=== PATIENT | female | born 1940 | race Caucasian/White ===

== ENCOUNTER 2017-06-20 06:43 | Inpatient (IN) | payer OTHER ==
--- NOTE | 2017-06-17 12:04 | Diagnostic Imaging Report ---
PROCEDURE: Frontal and lateral views of the chest. COMPARISON: Patients [facility], DX, CHEST 2 VIEWS, 11/11/2014, 13:35. Patients [facility], DX, CHEST 2 VIEWS, 09/23/2015, 19:00. INDICATIONS: PREOP - RIGHT HIP SX FINDINGS: Lines/tubes: None. Lungs: The lungs are well inflated. Stable Ill-defined, rounded 6 mm nodular density projecting in the left costophrenic region on the frontal view only, likely represents a calcified granuloma. There is no evidence of pneumonia or pulmonary edema. Pleura: There is no pleural effusion or pneumothorax. Heart and mediastinum: Mild enlargement of the cardiac silhouette. Pulmonary vasculat Bones: No acute bony abnormality. IMPRESSION: 1. mild enlargement of the cardiac silhouette, without acute cardiopulmonary abnormalities Davi Ayala M.D. Dictated by: Davi Ayala M.D. on 06/17/2017 at 12:12 Electronically approved by: Davi Ayala M.D. on 06/17/2017 at 12:12
[2017-06-17 12:22] LABS: BASOPHILS % 0.3 % (0.0-1.0); EOSINOPHILS # (AUTO) 0.1 (0.0-0.4); EOSINOPHILS % 0.8 % (0.0-6.0); HEMATOCRIT 41.3 % (34.2-44.1); HEMOGLOBIN 13.5 g/dL (12.0-16.0); LYMPHOCYTES # (AUTO) 2.6 (1.0-3.2); LYMPHOCYTES % 21.3 % (18.0-39.1); MEAN CORPUSCULAR HEMOGLOBIN 30.5 pg (28-32); MEAN CORPUSCULAR HGB CONC 32.7 g/dL (31-35); MEAN CORPUSCULAR VOLUME 93.4 fL (81-99); MONOCYTES # (AUTO) 0.6 (0.2-0.8); NEUTROPHILS # (AUTO) 8.6 (2.1-6.9); NEUTROPHILS % 72.3 % (38.7-80.0); PLATELET COUNT 338 x10e3/uL (140-360); RED BLOOD COUNT 4.42 x10e6/uL (3.6-5.1); RED CELL DISTRIBUTION WIDTH 12.2 % (11.7-14.4)
[2017-06-17 12:27] LABS: ANION GAP 12.2 mmol/L (8-16); CALCIUM 9.1 mg/dL (8.4-10.2); CREATININE, SERUM 0.93 mg/dL (0.57-1.11); POTASSIUM 4.2 mmol/L (3.5-5.1)
[~2017-06-20 06:43] MED LIST: ACETAMINOPHEN325 M1 PO; ADVAIR 500/501 EA INH; ALEVE220 M1 PO; AMLODIPINE BESYL5 MG PO; ATROVENT HFA12.9 GM PO; B-122500 MCG PO; BUDESONIDE0.5 MG/2 M NEB; CENTRUM SILVER1 EAC1 PO; COZAAR100 MG PO; COZAAR50 MG PO; DETROL LA4 MG PO; DIGOXIN125 MCG PO; ELIQUIS PO; GLUCOPHAGE500 MG PO; HYDRALAZINE HC100 MG PO; HYDROCHLOROTH12.5 M1 PO; HYDROCHLOROTHIA25 MG PO; ISOSORBIDE DINI30 MG PO; LAMISIL250 MG PO; LASIX20 MG PO; LEVALBUTER1.25 MG/3 INH; LISINOPRIL; LOPRESSOR25 MG PO; METFORMIN; METOPROLOL SUCC25 MG PO; MUCDM PO; MULTI-VITAMIN1 EACH; NEURONTIN100 MG PO; PEPCID20 MG PO; PREDNISONE20 MG PO; RA GLUCOSAMINE PO; ROPIVACAINE 246.25 MG, EPINEPHRINE HCL 1:1000 0.5 MG, CLONIDINE HCL 0.08 MG, KETOROLAC ... INJ ONE; SALBUTAMOL INH; SINGULAIR10 MG PO; SYMBICORT 80-10.2 GM INH; TYLENOL PO; VENTOLIN HFA18 GM INH; VERAPAMIL ER120 M1; XARELTO10 MG PO; XOPENEX CO1.25 MG/0.; XOPENEX HFA15 GM INH
[2017-06-20] MEDS ORDERED: MUPIROCIN 2% OINT 22 GM TUBE ONE (06:54)
[2017-06-20] MEDS ORDERED: TRANEXAMIC ACID 1,000 MG/10 ML ML ONE (06:55)
[2017-06-20] MEDS ORDERED: BACITRACIN 50,000 UNIT VIAL ONE (06:55)
[2017-06-20] MEDS ORDERED: HYDROGEN PEROXIDE 120 ML BTL ONE (06:55)
[2017-06-20] MEDS ORDERED: CEFAZOLIN SOD 2 GM/D5W 50ML 50 ML IV ONE (07:04)
[2017-06-20] MEDS ORDERED: DEXAMETHASONE SOD PHOS 10 MG/1 ML VIAL ONE (07:43)
[2017-06-20] MEDS ORDERED: GABAPENTIN 300 MG CAP ONE (07:43)
[2017-06-20] MEDS ORDERED: CELECOXIB 200 MG CAP ONE (07:43)
[2017-06-20] MEDS ORDERED: BUPIVACAINE 7.5MG/ML /DEXTROSE 82.5MG/ML 2 ML AMP INJ ONE (08:36)
[2017-06-20] MEDS ORDERED: SODIUM CHLORIDE 0.9% 1000ML 1,000 ML IV SCH (09:56)
[2017-06-20] MEDS ORDERED: ZOLPIDEM TARTRATE 5 MG TAB PO PRN (10:00)
[2017-06-20] MEDS ORDERED: HYDROCODONE/APAP 7.5MG-325MG 1 EA TAB PO PRN (10:00)
[2017-06-20] MEDS ORDERED: DOCUSATE SODIUM 100 MG CAP PO PRN (10:00)
[2017-06-20] MEDS ORDERED: DIPHENHYDRAMINE HCL INJ 50 MG/ML VIAL IM/IV PRN (10:00)
[2017-06-20] MEDS ORDERED: KETOROLAC TROMETHAMINE 30 MG/ML VIAL IV PRN (10:00)
[2017-06-20] MEDS ORDERED: PROMETHAZINE HCL (IM) 25 MG/ML VIAL INJ PRN (10:00)
[2017-06-20] MEDS ORDERED: ACETAMINOPHEN 650 MG SUPP PR PRN (10:00)
[2017-06-20] MEDS ORDERED: HYDROCODONE/APAP 5MG-325MG TAB PO PRN (10:00)
[2017-06-20] MEDS ORDERED: ONDANSETRON HCL INJ 2 MG/ML VIAL IV PRN (10:00)
[2017-06-20] MEDS ORDERED: FENTANYL CITRATE/PF 100MCG/2 ML INJ ONE ×2 (10:43→19:15)
--- NOTE | 2017-06-20 11:46 | Diagnostic Imaging Report ---
PROCEDURE:X-RAY PELVIS, AP VIEW COMPARISON:03/02/17 INDICATIONS:STATUS POST RIGHT HIP SURGERY FINDINGS: Limited by body habitus. Unchanged left hip arthroplasty. Status post right hip arthroplasty. Hardware is intact. No definite evidence of acute displaced fracture or dislocation. CONCLUSION: Limited by body habitus/overlying soft tissue attenuation. Post surgical changes of right hip arthroplasty. Status post left hip arthroplasty. Hardware are intact. Dictated by: Julio Key M.D. on 06/20/2017 at 11:55 Electronically approved by: Julio Key M.D. on 06/20/2017 at 11:55
[2017-06-20] MEDS: ACETAMINOPHEN 1000 MG/100 ML IV SCH ×3 (12:00→16:15)
[2017-06-20] MEDS ORDERED: ACETAMINOPHEN 1000 MG/100 ML IV PRN (12:45)
[2017-06-20] MEDS ORDERED: HYDROMORPHONE 2MG/ML INJ ONE (13:21)
[2017-06-20] MEDS ORDERED: CEFAZOLIN SOD 1 GM/NS 50ML 50 ML IV SCH (14:00)
[2017-06-20 15:36] VITALS: BP 174/69
[2017-06-20] MEDS: CEFAZOLIN SOD 1 GM VIAL IV SCH ×2 (16:00→16:13)
[2017-06-20] MEDS: CELECOXIB 100 MG CAP PO SCH (16:12)
[2017-06-20] MEDS ORDERED: ASPIRIN 325 MG TAB PO SCH (17:00)
[2017-06-20] MEDS ORDERED: SEVOFLURANE INHAL SOLN 250 ML PEN BTL ONE (18:28)
[2017-06-20] MEDS ORDERED: ONDANSETRON HCL INJ 2 MG/ML VIAL ONE (18:28)
[2017-06-20] MEDS ORDERED: PROPOFOL IV EMULSION 10 MG/ML 20 ML VIAL ONE (18:28)
[2017-06-20] MEDS ORDERED: LIDOCAINE HCL 2% LOCAL INJ 5 ML SDV VIAL INJ ONE (18:28)
[2017-06-20] MEDS ORDERED: MIDAZOLAM HCL 2 MG/2 ML VIAL ONE (19:15)
[2017-06-20 20:00] VITALS: BP 145/67
[2017-06-21] VITALS: BP 160/70
[2017-06-21] MEDS: CEFAZOLIN SOD 1 GM VIAL IV SCH (00:51)
[2017-06-21 01:21] VITALS: BP 160/70
[2017-06-21 04:00] VITALS: BP 181/73
[2017-06-21] MEDS: ACETAMINOPHEN 1000 MG/100 ML IV SCH (05:10)
[2017-06-21 06:56] LABS: HEMATOCRIT 34.7 % (34.2-44.1); HEMOGLOBIN 11.6 g/dL (12.0-16.0)
[2017-06-21] MEDS: CELECOXIB 100 MG CAP PO SCH (08:00)
[2017-06-21] MEDS ORDERED: LEVALBUTEROL HCL SOLN NEBU 0.63 MG/3 ML NEB INH PRN (08:45)
[2017-06-21] MEDS ORDERED: FUROSEMIDE 20 MG TAB PO SCH (09:00)
[2017-06-21] MEDS ORDERED: BUDESONIDE 0.5MG/2 ML NEB NEB SCH (09:00)
[2017-06-21] MEDS ORDERED: TOLTERODINE TARTRATE 4 MG CAPCR PO SCH (09:00)
[2017-06-21] MEDS ORDERED: AMLODIPINE BESYLATE 5 MG TAB PO SCH (09:00)
[2017-06-21] MEDS ORDERED: LOSARTAN POTASSIUM 100 MG TAB PO SCH (09:00)
[2017-06-21] MEDS ORDERED: NON-FORMULARY MEDICATION ([Eliquis] 2.5 MG) PO SCH (09:00)
--- NOTE | 2017-06-21 09:10 | Consultation ---
DATE OF CONSULTATION: June 20, 2017 PRIMARY CARE PHYSICIAN: Dr. Rosario Arias CHIEF COMPLAINT: Status post right hip replacement. HISTORY: Patient is a pleasant 77-year-old female who came in now status post right hip replacement. The patient has significant osteoarthritis. She failed outpatient treatment. The patient is stable otherwise. She is at baseline and has multiple medical problems. She is comfortable at this time. PAST MEDICAL HISTORY: Osteoarthritis, asthma, morbid obesity, diabetes, type 2, hypertension, diabetic neuropathy. She has atrial fibrillation. PAST SURGICAL HISTORY: Lower back surgery, left knee replacement, right total knee replacement, and now status post right hip replacement. SOCIAL HISTORY: Patient does not smoke or use alcohol. No recreational drugs. ALLERGIES: CODEINE AND MORPHINE. HOME MEDICATIONS: Tylenol, Norvasc, Lasix, losartan, metoprolol, Eliquis, Detrol LA, multivitamin. PHYSICAL EXAMINATION VITALS: Temperature is 96, blood pressure 181/73, pulse rate 60, respirations 18. GENERAL: The patient is not in acute distress. She is awake. HEENT: Normocephalic, atraumatic and anicteric. NECK: Supple grossly. PULMONARY: Clear. CARDIOVASCULAR: Atrial fibrillation and rate controlled. ABDOMEN: Soft and obese. EXTREMITIES: No edema. No cyanosis. Status post right hip replacement. NEUROLOGIC: No focal deficit. LABORATORY: Sodium is 142, potassium 4.2, chloride 109, bicarb 25, BUN 23, creatinine 0.9, glucose 143. WBC is 12, hemoglobin 12, hematocrit 35, and platelets 338,000. IMPRESSION 1. Status post right hip replacement. 2. Stable atrial fibrillation. 3. Stable diabetes, hypertension and obesity. PLAN: Adjust the patient's medications. Resume Eliquis. Continue with current treatment. PT and OT. Home medication list reviewed. Pain control. Discontinue IV fluids. Job#: [id number] RAFAEL
[2017-06-21 09:58] VITALS: BP 163/70
[2017-06-21] MEDS ORDERED: ACETAMINOPHEN 1000 MG/100 ML IV PRN (10:00)
[2017-06-21] MEDS ORDERED: APIXAB 2.5 MG TABLET PO SCH (20:00)
[2017-06-21] MEDS ORDERED: METOPROLOL SUCCINATE 25 MG TAB XL PO SCH (21:00)
--- NOTE | 2017-06-23 10:24 | Operative Report ---
DATE OF PROCEDURE: June 20, 2017 DIP GUIDER STOVES: Ovi Paz PA-C The patient was brought to the operating room for induction of anesthesia. Throughout this case, my PA's assistance was necessary for retraction of soft tissue and positioning of the extremity. This allows for efficient and technically successful execution of the operation and is considered medically necessary. PREOPERATIVE DIAGNOSES 1. Osteoarthritis, right hip. 2. Morbid obesity. POSTOPERATIVE DIAGNOSES 1. Osteoarthritis, right hip. 2. Morbid obesity. PROCEDURE: Right total hip arthroplasty, *added complexity secondary to BMI of 41. INDICATIONS: The patient is a 77-year-old lady who has advanced arthritis of her right hip. She has failed conservative management and would like to proceed with a right total hip replacement. She has been through a left total hip replacement and is happy with the outcome. We have reviewed the associated risks and benefits, the hospital stay and the recovery. She states she understands and wishes to proceed. DESCRIPTION OF PROCEDURE: The patient was brought to the operating room and placed under general anesthetic. She received prophylactic antibiotics, a regional block and tranexamic acid in the holding area. She was positioned in the left lateral decubitus position. Throughout the case , added time and personnel was necessary to accommodate the patient's body mass index. A preoperative time out was performed. The left hip was prepped and draped in a sterile manner. A posterior approach was made to the right hip. Abundant subcutaneous adipose tissue was encountered. Hemostasis was obtained with electrocautery. The posterior capsule was carefully exposed. A Charnley self-retaining deep retractor was placed. The short external rotators were released. Added hemostasis was obtained with electrocautery. The hip was dislocated and an oscillating saw was used to resect the femoral head. Complete loss of articular cartilage was noted. Acetabular retractors were placed. Marginal osteophytes and the remnants of the labrum were excised. The true floor of the acetabulum was established with a 46 mm reamer. The socket was carefully reamed up to 53 mm. A 54 mm [employer] Trident socket was then impacted into place. Fixation was augmented with a single 25 mm cancellous screw. A highly cross link polyethylene liner with a 36 mm inner diameter was then impacted into place. Care was taken to make sure that there was no evidence of soft tissue interposition. The hip had been thoroughly irrigated with a shower-tip pulsatile lavage. A portion of a 100 mL premixed pericapsular injection was placed around the soft tissue. The socket was packed with moistly soaked lap sponge and attention was directed towards the proximal femur. A box cutting osteotome and taper pin reamers were used to establish entry to the femoral canal. As with the left hip, the canal was quite tight and we expected to use a 35.5 mm offset Hurst stem. The trial broach was impacted into place. Trial reductions were performed. The patient was noted to have good stability and anabaptism of limb length. The trial implants were removed and a small bone plug was placed down the femoral canal. The canal was thoroughly irrigated with a pulsatile lavage. The canal was packed with moistly soaked peroxide sponges while 2 mixes of Simplex cement pre-loaded with antibiotics were prepared on the back table. The cement was inserted in a retrograde fashion and pressurized until about 5-1/2 minutes of cement time. The stem was seated to the predetermined level in 15 degrees of anteversion. Once the cement had cured repeat trial reductions were performed. A standard 36 mm head was felt to be optimal. The implant was seated on a clean and dry stem. The final reduction was performed. The posterior capsule was carefully repaired with number 2 Ethibond. The short external rotators were too contracted to repair. The hip was further irrigated and the remainder of the pericapsular injection was placed. The tensor fascia and gluteal fascia were closed using interrupted number 2 Ethibond. The skin was closed with subcuticular Vicryl and kt. A sterile wound VAC was applied due to the abundant adipose. The patient was returned to the supine position. She was extubated and transported to the recovery room in stable condition. Blood loss was approximately 100 mL. At the end of the procedure all needle and sponge counts were correct. Job#: [id number]
== END 2017-06-21 15:30 | disposition home health service (06) | DRG 470 ==
LOC: OR 06:43 → MED/SURG 14:13
PROVIDERS: ADMIT Specialist; ATTEND Specialist
PROC: 0SR90J9 Replacement of Right Hip Joint with Synthetic Substitute, Cemented, Open Approach (ICD-10-PCS; principal; 2017-06-20 08:00)
DX: M16.11 Unilateral primary osteoarthritis, right hip (principal); E11.42 Type 2 diabetes mellitus with diabetic polyneuropathy; Z68.41 Body mass index [BMI] 40.0-44.9, adult; I48.91 Unspecified atrial fibrillation; Z96.642 Presence of left artificial hip joint; E66.01 Morbid (severe) obesity due to excess calories; I10 Essential (primary) hypertension; J45.909 Unspecified asthma, uncomplicated; Z79.01 Long term (current) use of anticoagulants; Z96.653 Presence of artificial knee joint, bilateral; Z88.5 Allergy status to narcotic agent; Z88.2 Allergy status to sulfonamides
CPT/HCPCS: 36415; 71020; 72170; 80048; 85014; 85018; 85025; 86850; 86900; 86920; 93005; 97139; C1713; J0171; J0690; J1100; J1885; J2001; J2250; J2405; J2795

== ENCOUNTER 2017-10-23 18:33 | Observation (INO) | payer OTHER ==
[~2017-10-23] VITALS: Ht 157.5 cm; Wt 97.5 kg
[~2017-10-23 18:33] MED LIST changes: -ROPIVACAINE 246.25 MG, EPINEPHRINE HCL 1:1000 0.5 MG, CLONIDINE HCL 0.08 MG, KETOROLAC ... INJ ONE
--- OUTSIDE RECORDS SUMMARY | 2017-10-23 18:36 | XMS REPORT ---
[facility] Address Unknown Phone Unavailable Care Team Providers Care Skydiving Instructor Name Role Phone ANTHONY LIVINGSTON Unavailable Unavailable KINSEY JULIEN Unavailable Unavailable Problems This patient has no known problems. Allergies, Adverse Reactions, Alerts This patient has no known allergies or adverse reactions. Medications This patient has no known medications. Results Test Description Test Time Test Comments Text Results Atomic Results Result Comments PELVIS AP 1-2 VIEWS [place] [address] Patient Name: MARTA TRINIDAD MR #: [id number] : 1940 Age/Sex: 77/F Req #: [id number] Adm Physician: Ordered by: ANTHONY LIVINGSTON MD Report #: [id number] Location: OR Room/Bed: Procedure: [id number] DX/PELVIS AP 1-2 VIEWS Exam Date: 06/20/17 Exam Time: 1050 REPORT STATUS: Signed PROCEDURE: X-RAY PELVIS, AP VIEW COMPARISON: 03/02/17 INDICATIONS: STATUS POST RIGHT HIP SURGERY FINDINGS: Limited by body habitus. Unchanged left hip arthroplasty. Status post right hip arthroplasty. Hardware is intact. No definite evidence of acute displaced fracture or dislocation. CONCLUSION: Limited by body habitus/overlying soft tissue attenuation. Post surgical changes of right hip arthroplasty. Status post left hip arthroplasty. Hardware are intact. Dictated by: Julio Lucero M.D. on 06/20/2017 at 11:55 Electronically approved by: Julio Lucero M.D. on 06/20/2017 at 11:55 Dictated By: JULIO LUCERO MD 1155 Transcribed By: LAM on 06/20/17 1155 COPY TO: ANTHONY LIVINGSTON MD CHEST 2 VIEWS [place] [address] Patient Name: MARTA TRINIDAD MR #: [id number] : 1940 Age/Sex: 77/F Req #: [id number] Adm Physician: Ordered by: ANTHONY LIVINGSTON MD Report #: [id number] Location: OR Room/Bed: Procedure: [id number] DX/CHEST 2 VIEWS Exam Date: 06/17/17 Exam Time: 1125 REPORT STATUS: Signed PROCEDURE: Frontal and lateral views of the chest. COMPARISON: [facility], DX, CHEST 2 VIEWS, 2014, 13:35. [facility], DX, CHEST 2 VIEWS, 09/23/2015, 19:00. INDICATIONS: PREOP - RIGHT HIP SX FINDINGS: Lines/tubes: None. Lungs: The lungs are well inflated. Stable Ill-defined, rounded 6 mm nodular density projecting in the left costophrenic region on the frontal view only, likely represents a calcified granuloma. There is no evidence of pneumonia or pulmonary edema. Pleura: There is no pleural effusion or pneumothorax. Heart and mediastinum: Mild enlargement of the cardiac silhouette. Pulmonary vasculat Bones: No acute bony abnormality. IMPRESSION: 1. mild enlargement of the cardiac silhouette, without acute cardiopulmonary abnormalities Rocael Ayala M.D. Dictated by: Rocael Ayala M.D. on 06/17/2017 at 12:12 Electronically approved by: Rocael Ayala M.D. on 06/17/2017 at 12:12 Dictated By: ROCAEL AYALA MD 11 Transcribed By: LAM on 06/17/171211 COPY TO: ANTHONY LIVINGSTON MD HIP RIGHT 2-3 VW (+/- PELVIS) [place] [address] Patient Name: MARTA TRINIDAD MR #: [id number] : 1940 Age/Sex: 77/F Req #: [id number] Adm Physician: Ordered by: KINSEY JULIEN MD Report #: [id number] Location: ER Room/Bed: Procedure: [id number] DX/HIP RIGHT 2-3 VW (+/- PELVIS) Exam Date: Exam Time: REPORT STATUS: Signed PROCEDURE: HIP RIGHT 2-3 VW (+/- PELVIS) COMPARISON: None. INDICATIONS: FALL FINDINGS: No evidence of acute fracture or dislocation. Status post left hip arthroplasty. Hardware is intact. Degenerative changes of right hip. Pelvic phleboliths. Vascular calcifications. IMPRESSION: No acute fracture or dislocation of the right hip. Degenerative changes of the right hip. Status post left hip arthroplasty. Intact hardware. Dictated by: Julio Lucero M.D. on 03/02/2017 at 17:00 Electronically approved by: Julio Lucero M.D. on 03/02/2017 at 17:00 Dictated By: JULIO LUCERO MD 99 COPY TO: KINSEY JULIEN MD KNEE RIGHT THREE VIEWS [place] [address] Patient Name: MARTA TRINIDAD MR #: [id number] : 1940 Age/Sex: 77/F Req #: [id number] Adm Physician: Ordered by: KINSEY JULIEN MD Report #: [id number] Location: ER Room/Bed: Procedure: [id number] DX/KNEE RIGHT THREE VIEWS Exam Date: Exam Time: REPORT STATUS: Signed PROCEDURE: KNEE RIGHT THREE VIEWS COMPARISON: 11/06/12 INDICATIONS: KNEE PAIN FINDINGS: Status post right hip arthroplasty. Hardware is intact. There are no fractures, dislocations, lytic or blastic lesions. No suprapatellar joint effusion. Vascular calcification. The soft-tissues are unremarkable. CONCLUSION: Status post right hip arthroplasty. Intact hardware. No acute abnormality. Dictated by: Julio Lucero M.D. on 2016 at 17:03 Electronically approved by: Julio Lucero M.D. on 2016 at 17:03 Dictated By: JULIO LUCERO MD 02 Transcribed By: LAM on 03/02/171702 COPY TO: KINSEY JULIEN MD
[2017-10-23] MEDS ORDERED: NITROGLYCERIN 2% OINT 1 GM PKT TOP STA (18:58)
[2017-10-23] MEDS ORDERED: ASPIRIN 81 MG CHEW TAB PO STA (18:58)
[2017-10-23] MEDS ORDERED: ASPIRIN 81 MG CHEW TAB PO ONE (19:00)
[2017-10-23 19:33] LABS: BASOPHILS % 0.2 % (0.0-1.0); EOSINOPHILS # (AUTO) 0.1 (0.0-0.4); EOSINOPHILS % 0.4 % (0.0-6.0); HEMATOCRIT 41.2 % (34.2-44.1); HEMOGLOBIN 13.5 g/dL (12.0-16.0); LYMPHOCYTES # (AUTO) 2.4 (1.0-3.2); LYMPHOCYTES % 15.3 % (18.0-39.1); MEAN CORPUSCULAR HGB CONC 32.8 g/dL (31-35); MEAN CORPUSCULAR VOLUME 91.6 fL (81-99); MONOCYTES # (AUTO) 1.1 (0.2-0.8); MONOCYTES % 7.1 % (4.4-11.3); NEUTROPHILS # (AUTO) 12.1 (2.1-6.9); NEUTROPHILS % 76.1 % (38.7-80.0); PLATELET COUNT 316 x10e3/uL (140-360); RED CELL DISTRIBUTION WIDTH 13.8 % (11.7-14.4)
--- NOTE | 2017-10-23 19:43 | Diagnostic Imaging Report ---
EXAMINATION: CHEST SINGLE (PORTABLE) INDICATION: Chest pain COMPARISON: 06/17/2012 FINDINGS: TUBES and LINES: The pacemaker is intact. LUNGS: Lungs are well inflated. Lungs are clear. There is no evidence of pneumonia or pulmonary edema. PLEURA: No pleural effusion or pneumothorax. HEART AND MEDIASTINUM: Cardiac size is mildly enlarged. There are atherosclerotic calcifications within the aorta. BONES AND SOFT TISSUES: No acute osseous lesion. Soft tissues are unremarkable. UPPER ABDOMEN: No free air under the diaphragm. IMPRESSION: No acute thoracic abnormality. Mild cardiomegaly without decompensation. Signed by: Dr. Hay Winslow M.D. on 10/23/2017 7:39 PM
[2017-10-23 19:45] LABS: INR 1.22; PARTIAL THROMBOPLASTIN TIME 31.1 seconds (23.8-35.5); PROTHROMBIN TIME 14.5 seconds (11.9-14.5)
[2017-10-23 19:53] LABS: ALBUMIN 3.3 g/dL (3.5-5.0); ANION GAP 15.4 mmol/L (8-16); CALCIUM 9.4 mg/dL (8.4-10.2); CREATININE, SERUM 1.06 mg/dL (0.57-1.11); POTASSIUM 4.4 mmol/L (3.5-5.1)
[2017-10-23 20:02] LABS: CREATINE KINASE MB 2.6 ng/mL (0-5.0)
[2017-10-23] MEDS ORDERED: SODIUM CHLORIDE 0.9% 250ML 250 ML IV ONE (22:30)
[2017-10-23 23:15] LABS: BILIRUBIN,URINE NEGATIVE (NEGATIVE); CLARITY,URINE CLEAR (CLEAR); COLOR,URINE YELLOW (YELLOW); KETONES,URINE NEGATIVE (NEGATIVE); LEUKOCYTE ESTERASE ,URINE NEGATIVE (NEGATIVE); NITRITE,URINE NEGATIVE (NEGATIVE); PROTEIN,URINE DIPSTICK TRACE (NEGATIVE); URINE UROBILINOGEN 0.2 mg/dL (0.2 - 1)
[2017-10-23 23:23] LABS: EPITHELIAL CELLS,URINE FEW /LPF; RBC,URINE 0-5 /HPF (0-5); WBC,URINE (MAN) 0-5 /HPF (0-5)
[2017-10-24] VITALS (7 sets, daily range): BP systolic 148–192; BP diastolic 70–79
[2017-10-24] MEDS ORDERED: SODIUM CHLORIDE FLUSH 10 ML SYR INJ PRN (00:30)
[2017-10-24] MEDS ORDERED: ONDANSETRON HCL INJ 2 MG/ML VIAL IV PRN (00:30)
[2017-10-24] MEDS ORDERED: SYMBICORT 16010.2 GM INH (00:38)
--- NOTE | 2017-10-24 00:45 | Diagnostic Imaging Report ---
EXAM: CT Abdomen and Pelvis WITH contrast INDICATION: Abdominal pain. COMPARISON: None. TECHNIQUE: Abdomen and pelvis were scanned utilizing a multidetector helical scanner from the lung base to the pubic symphysis after administration of IV contrast. Coronal and sagittal reformations were obtained. Routine protocol was performed. Scan was performed when during portal venous phase. IV CONTRAST: 100 mL of Isovue-370 ORAL CONTRAST: Water RADIATION DOSE: Total DLP: 718.13 mGy*cm Estimated effective dose: (DLP x 0.015 x size factor) mSv COMPLICATIONS: None FINDINGS: LINES and TUBES: None. LOWER THORAX: Partially visualize pacemaker. Calcified granuloma in the left lung base. Moderate cardiomegaly. HEPATOBILIARY: No focal hepatic lesions. No biliary ductal dilation. GALLBLADDER: No radio-opaque stones or sludge. No wall thickening. SPLEEN: No splenomegaly. PANCREAS: No focal masses or ductal dilatation. ADRENALS: No adrenal nodules KIDNEYS/URETERS: Kidneys enhance symmetrically. No hydronephrosis. No cystic or solid mass lesions. No stones. GI TRACT: No abnormal distention, wall thickening, or evidence of bowel obstruction. Appendix is not clearly identified. There is however no fat stranding or adenopathy in the right lower quadrant to suggest appendicitis. PELVIC ORGANS/BLADDER: Limited. LYMPH NODES: No lymphadenopathy. VESSELS: There is mild atherosclerotic disease in the aorta and major arterial branches. PERITONEUM / RETROPERITONEUM: No free air or fluid. BONES: There are degenerative changes in the lumbar spine. Bilateral total hip replacement results in beam hardening artifact limiting the evaluation of the lower pelvis. SOFT TISSUES: Unremarkable. IMPRESSION: 1. No evidence of acute intra-abdominal or pelvic abnormality. Signed by: Dr. aHy Winslow M.D. on 10/24/2017 12:41 AM
[2017-10-24] MEDS: FAMOTIDINE 20 MG TAB PO SCH ×2 (01:18→11:50)
[2017-10-24 02:56] LABS: CREATINE KINASE MB 2.4 ng/mL (0-5.0)
[2017-10-24] MEDS ORDERED: NITROGLYCERIN 2% OINT 1 GM PKT TOP SCH (06:00)
[2017-10-24] MEDS ORDERED: IOPAMIDOL 370 MG/ML 200 ML INFUS..BTL INJ ONE (06:48)
[2017-10-24] MEDS ORDERED: SODIUM CHLORIDE 0.9% 50ML 50 ML ONE (06:48)
[2017-10-24] MEDS ORDERED: ASPIRIN 325 MG TAB EC PO SCH (09:00)
[2017-10-24] MEDS ORDERED: LORATADINE 10 MG TAB PO SCH (09:30)
[2017-10-24] MEDS ORDERED: ACETAMINOPHEN 325 MG TAB PO PRN (09:30)
[2017-10-24] MEDS ORDERED: METOPROLOL SUCCINATE 25 MG TAB XL PO SCH (09:30)
[2017-10-24] MEDS ORDERED: MONTELUKAST SODIUM 10 MG TAB PO SCH (09:30)
[2017-10-24] MEDS ORDERED: NON-FORMULARY MEDICATION ([Eliquis] 2.5 MG) PO SCH (09:30)
[2017-10-24] MEDS ORDERED: AMLODIPINE BESYLATE 5 MG TAB PO SCH (09:30)
[2017-10-24] MEDS ORDERED: LOSARTAN POTASSIUM 100 MG TAB PO SCH (10:00)
[2017-10-24] MEDS ORDERED: LEVALBUTEROL TARTRATE 45 MCG INH SCH (10:00)
[2017-10-24] MEDS: APIXAB 2.5 MG TABLET PO SCH ×2 (10:00→17:30)
--- NOTE | 2017-10-24 10:00 | History and Physical ---
CHIEF COMPLAINT: Abdominal pain, distention and then subsequently chest pain. HISTORY: A 77-year-old female with upper respiratory symptoms with acute gastroenteritis for the past 3-4 days. The patient was having diarrhea off and on. CT scan of the abdomen and pelvis done in the emergency room was otherwise unremarkable. When she was having abdominal distention, she had some chest discomfort, atypical. Cardiac enzymes have been negative. The patient is otherwise stable. The patient had upper respiratory symptoms. She was on steroids recently with IM Solu-Medrol. PAST MEDICAL HISTORY: Hypertension, reactive airway disease, atrial fibrillation, anticoagulant therapy, coronary disease, dyslipidemia. PAST SURGICAL HISTORY: Noncontributory. She had right hip replacement, lower back surgery, left knee replacement, right total knee replacement. SOCIAL HISTORY: Patient does not smoke or use alcohol. No regular drugs. ALLERGIES: CODEINE AND MORPHINE. HOME MEDICATIONS: List reviewed. REVIEW OF SYSTEMS: As mentioned. PHYSICAL EXAMINATION VITAL SIGNS: Temperature is 98, blood pressure 192/79, pulse rate 66, respirations 18. GENERAL: The patient is not in acute distress. HEENT: Normocephalic, atraumatic and anicteric. NECK: Supple grossly. PULMONARY: Clear. CARDIOVASCULAR: S1 and S2. Regular rate and rhythm. ABDOMEN: Soft nontender. No distention. EXTREMITIES: No cyanosis or edema. NEUROLOGIC: No focal deficit. LABORATORY: Otherwise unremarkable. IMPRESSION: Acute gastroenteritis associated with diarrhea and then subsequently reflux and chest pain secondary to abdominal distention, resolved. Computerized tomography scan of the abdomen and pelvis is negative. PLAN: Start the patient on diet. Resume home medications. Add Claritin and Singulair. If the patient is stable, she should be able to go home today. Job#: [id number] [place]
[2017-10-24] MEDS ORDERED: ONDANSETRON HCL 4 MG ORAL DISINTEGRATING TAB PO PRN (12:15)
[2017-10-24] MEDS: LEVALBUTEROL 15 GM AERO IH SCH ×2 (15:00→16:31)
[2017-10-24] MEDS ORDERED: CLARITIN10 M2 (16:47)
[2017-10-24] MEDS ORDERED: SINGULAIR10 MG (16:48)
[2017-10-24] MEDS ORDERED: BUDESONIDE/FORMOTEROL 160/4.5MCG INHALER INH SCH (19:00)
[2017-10-25] MEDS ORDERED: NON-FORMULARY MEDICATION (Losartan Potassium (Cozaar) 100 MG) PO SCH (09:00)
[2017-10-25] MEDS ORDERED: FUROSEMIDE 20 MG TAB PO SCH (09:00)
[2017-10-25] MEDS ORDERED: TOLTERODINE TARTRATE 4 MG CAPCR PO SCH (09:00)
== END 2017-10-24 18:15 | disposition home or self-care (01) ==
LOC: ER 18:33 → MED/SURG3 10-24 02:01
PROVIDERS: ADMIT Internal Medicine; ATTEND Internal Medicine
DX: K52.9 Noninfective gastroenteritis and colitis, unspecified (principal); R07.89 Other chest pain; I10 Essential (primary) hypertension; I48.91 Unspecified atrial fibrillation; E78.5 Hyperlipidemia, unspecified; Z79.01 Long term (current) use of anticoagulants; Z88.5 Allergy status to narcotic agent; K21.9 Gastro-esophageal reflux disease without esophagitis
CPT/HCPCS: 36415 ×2; 71045; 74177; 80053; 81001; 82550 ×2; 82553 ×2; 83880; 84484 ×2; 85025; 85610; 85730; 93005; 99284; G0378; J7050; Q9967

== ENCOUNTER 2019-04-27 14:34 | Emergency (ER) | payer OTHER ==
[~2019-04-27] VITALS: Ht 157.5 cm; Wt 97.5 kg
[~2019-04-27 14:34] MED LIST changes: +CLARITIN10 M2; +SINGULAIR10 MG; +SYMBICORT 16010.2 GM INH
--- OUTSIDE RECORDS SUMMARY | 2019-04-27 14:39 | XMS REPORT | Summary of Care ---
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 [employer]ating Name Role Phone DAVID Bolaños, TAWANNA Unavailable Unavailable OLIVER López, AYUSH Unavailable Unavailable DANNY López, BALAJI Unavailable Unavailable DARYL López, YAKELIN Unavailable Unavailable OLIVER MONTANEZ, AYUSH Marr Unavailable Unavailable DARYL MONTANEZ, SOLBARBARA Unavailable Unavailable Cecilia MONTANEZ, Rodrigo Unavailable Unavailable Danny MONTANEZ, Balaji Unavailable Unavailable LINDA PA-C, CLAY Unavailable Unavailable DAVID CREDIT ANALYSIS MANAGER-C, TAWANNA Aparicio Unavailable Unavailable GIA MONTANEZ SC, OTTO Pond Unavailable Unavailable AMERICA MONTANEZ, KARYN Unavailable Unavailable TABITHA MONTANEZ SC, JOCELIN BANKS Unavailable Unavailable Unavailable Unavailable Functional Status Name Dates Details Functional status health issues are not documented Status: Name Dates Details Cognitive status health issues are not documented Status: Problems Name Dates Details Dermatophytosis of nail (110.1, B35.1) Status: Active Epidermal inclusion cyst (706.2, L72.0) Status: Active Left shoulder pain (719.41, M25.512) Status: Active Vision blurred (368.8, H53.8) Status: Active Allergic rhinitis (477.9, J30.9) Status: Active Special Dr. 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, E11.49) Status: Active Diabetes mellitus with renal manifestation (250.40, E11.29) Status: Active Rheumatoid arthritis (714.0, M06.9) Status: Active Peripheral neuropathy, hereditary/idiopathic (356.9, G60.9) Status: Active H/O total hip arthroplasty, left (V43.64, Z96.642) Status: Active H/O total knee replacement, bilateral (V43.65, Z96.653) Status: Active Cataract, right (366.9, H26.9) Status: Active Paroxysmal atrial tachycardia (427.0, I47.1) Status: Active Mid back pain on right side (724.5, M54.9) Status: Active Ventricular premature depolarization (427.69, I49.3) Status: Active Pacemaker (V45.01, Z95.0) Status: Active Trigger finger of right thumb (727.03, M65.311) Status: Active Leg pain, anterior, right (729.5, M79.604) Status: Active Need for pneumococcal vaccine (V03.82, Z23) Status: Active Abnormal chest xray (793.2, R93.89) Status: Active Right elbow pain (719.42, M25.521) Status: Active Postmenopausal state (V49.81, Z78.0) Status: Active Right knee pain (719.46, M25.561) Status: Active Fall, initial encounter (E888.9, W19.XXXA) Status: Active Right hip pain (719.45, M25.551) Status: Active Mitral regurgitation (424.0, I34.0) Status: Active Aortic stenosis (424.1, I35.0) Status: Active Status post left hip replacement (V43.64, Z96.642) Status: Active Sciatica of right side associated with disorder of lumbar spine (724.3, M53.86) Status: Active Chronic bilateral low back pain with bilateral sciatica (724.2, M54.42) Status: Active Aphthous ulcer (528.2, K12.0) Status: Active Low back pain (724.2, M54.5) Status: Active Midepigastric pain (789.06, R10.13) Status: Active Abdominal bloating (787.3, R14.0) Status: Active Spinal stenosis (724.00, M48.00) Status: Active Osteopenia (733.90, M85.80) Status: Active SOB (shortness of breath) on exertion (786.05, R06.02) Status: Active Edema (782.3, R60.9) Status: Active Pedal edema (782.3, R60.0) Status: Active Asthma (493.90, J45.909) Status: Active Leg abrasion (916.0, S80.819A) Status: Active Acute purulent bronchitis (466.0, J20.8) Status: Active Sebaceous cyst (706.2, L72.3) Status: Active Skin infection (686.9, L08.9) Status: Active Diastolic dysfunction (429.9, I51.89) Status: Active Congestive heart failure (428.0, I50.9) Status: Active Need for influenza vaccination (V04.81, Z23) Status: Active Sore throat (462, J02.9) Status: Active Pharyngitis due to Streptococcus pyogenes (034.0, J02.0) Status: Active Coughing (786.2, R05) Status: Active Increased urinary frequency (788.41, R35.0) Status: Active 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, 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 Asthmatic bronchitis (493.90, J45.909) Status: Active Pain in both feet (729.5, M79.671) Status: Active Lumbar spondylosis (721.3, M47.816) Status: Active Obesity, Class III, BMI 40-49.9 (morbid obesity) (278.01, E66.01) Status: Active Mixed incontinence (788.33, N39.46) Status: Active Abnormal renal function (593.9, N28.9) Status: Active Left ankle swelling (719.07, M25.472) Status: Active Diarrhea, unspecified type (787.91, R19.7) Status: Active Colon cancer screening (V76.51, Z12.11) Status: Active IBS (irritable bowel syndrome) (564.1, K58.9) Status: Active Claudication (443.9, I73.9) Status: Active Urinary incontinence in female (788.30, R32) Status: Active Atrophic vaginitis (627.3, N95.2) Status: Active Vulvar irritation (624.8, N90.89) Status: Active UTI (urinary tract infection) (599.0, N39.0) Status: Active Increased frequency of urination (788.41, R35.0) Status: Active Lumbosacral stenosis 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, M48.07) Status: Active Breast cancer screening (V76.10, Z12.39) Status: Active Osteoporosis screening (V82.81, Z13.820) Status: Active Estrogen deficiency (256.39, E28.39) Status: Active Advance directive discussed with patient (V65.49, Z71.89) Status: Active Depression screen (V79.0, Z13.31) Status: Active Encounter for mini-mental status examination Status: Active Risk for falls (V15.88, Z91.81) Status: Active Medicare annual wellness visit, subsequent (V70.0, Z00.00) Status: Active 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, 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: Active Failed back syndrome, lumbar (722.83, M96.1) Status: Active Lumbar spondylolysis (738.4, M43.06) Status: Active Lumbar radicular pain (724.4, M54.16) Status: Active Laceration of skin (879.8) Status: Active Cat bite (879.8, W55.01XA) Status: Active Obesity, morbid, BMI 40.0-49.9 (278.01, E66.01) Status: Active Atrial fibrillation (427.31, I48.91) Status: Active Diabetes mellitus (250.00, E11.9) Status: Active Essential (primary) hypertension (401.9, I10) Status: Active Hyperlipidemia (272.4, E78.5) Status: Active Bradycardia (427.89, R00.1) Status: Active Medications Name Dates Details metFORMIN HCl ER 500 MG Oral Tablet Extended Release 24 Hour TAKE 1 TABLET DAILY Quantity: 90 AYUSH BOYD M.D. Active amLODIPine Besylate 10 MG Oral Tablet TAKE 1 TABLET BY MOUTH DAILY * Quantity: 30 Refills: 0 BALAJI DELGADO M.D. * Start : 02-Aug-2013 Active Furosemide 20 MG Oral Tablet TAKE 1 TABLET BY MOUTH EVERY DAY NEEDED * Quantity: 90 Refills: 1 AYUSH BOYD M.D. * Start : 23-Oct-2015 Active Eliquis 2.5 MG Oral Tablet Take 1 tablet by mouth twice a day * Quantity: 60 Refills: 6 DANNY López, BALAJI * Start : 11-Sep-2018 Active Levalbuterol Tartrate 45 MCG/ACT Inhalation Aerosol INHALE 1 TO 2 PUFFS EVERY 4 TO 6 HOURS NEEDED. * Quantity: 1 Refills: 3 AYUSH BOYD M.D. * Start : 12-Nov-2016 Active 15 GM Inhaler Clotrimazole 1 % External Cream APPLY SPARINGLY TO AFFECTED AREA(S) 2 TO 3 TIMES DAILY. * Quantity: 1 Refills: 2 OLIVER López, AYUSH * Start : 22-Aug-2017 Active 45 GM Tube Montelukast Sodium 10 MG Oral Tablet TAKE 1 TABLET BY MOUTH EVERY DAY * Quantity: 90 Refills: 1 AYUSH BOYD M.D. * Start : 31-Oct-2018 Active Olmesartan Medoxomil 40 MG Oral Tablet TAKE 1 TABLET BY MOUTH EVERY DAY * Quantity: 90 Refills: 0 AYUSH BOYD M.D. * Start : 08-Jun-2018 Active Levalbuterol HCl - 0.63 MG/3ML Inhalation Nebulization Solution USE 1 VIAL IN NEBULIZER 3 TIMES A DAY. * Quantity: 1 Refills: 0 TAWANNA HERNANDEZ N.P. * Start : 08-Jun-2018 Active 25 x 3 ML Box Premarin 0.625 MG/GM Vaginal Cream Insert 1 gram using applicator in vagina every night at bedtime for 4 weeks then twice weekly therafter * Quantity: 2 Refills: 6 YAKELIN BRITO M.D. * Start : 23-Nov-2018 Active 30 GM Tube Desitin 40 % External Paste Apply to perineum 3 times daily as directed * Quantity: 1 Refills: 0 DARYL López, SOLAFA * Start : 23-Nov-2018 Active 57 GM Tube OneTouch Ultra 2 w/Device Kit USE TO CHECK GLUCOSE ONCE DAILY * Quantity: 1 Refills: 0 AYUSH BOYD M.D. * Start : 11-Dec-2018 Active OneTouch Ultra Blue In Vitro Strip test once daily * Quantity: 1 Refills: 1 OLIVER López, AYUSH * Start : 11-Dec-2018 Active 100 Strip Box OneTouch Delica Lancets 33G USE AND DISCARD 1 LANCET DAILY TO MONITOR BLOOD SUGAR * Quantity: 1 Refills: 1 OLIVER López AYUSH * Start : 11-Dec-2018 Active 100 Unit Box Trospium Chloride 20 MG Oral Tablet Take 1 tablet by mouth twice a day * Quantity: 60 Refills: 1 DARYL López YAKELIN * Start : 11-Dec-2018 Active Breo Ellipta 100-25 MCG/INH Inhalation Aerosol Powder Breath Activated * Refills: 0 Active Carvedilol 12.5 MG Oral Tablet TAKE 1 TABLET TWICE DAILY WITH MEALS. * Quantity: 60 Refills: 1 BALAJI DELGADO M.D. * Start : 26-Jan-2019 Active Cephalexin 500 MG Oral Tablet TAKE 1 TABLET Every twelve hours * Quantity: 14 Refills: 0 DAVID Andrade.TAWANNA Faith * Start : 06-Mar-2019 Active Allergies and Adverse Reactions Name Dates Details codeine (Allergy) Status: Active Morphine Derivatives (Allergy) Status: Active Past Medical History Name Dates Details History of shortness of breath (V13.89, Z87.898) Status: Resolved Procedures Procedure Dates Details MA Digital Mammo Screening Philip [id number] Date: 25-Jan-2019 MA Bone Density Scan [id number] Date: 25-Jan-2019 History of Back Surgery Completed History of Knee Surgery Completed History of Pacemaker Permanent Placement Completed History of Corneal LASIK Right Completed Immunization Name Dates Details Fluzone INJ Lot #: [id number] on: 04-Apr-2013 Fluzone INJ Lot #: [id number] on: 08-Feb-2014 Prevnar 13 Intramuscular Suspension Lot #: [id number] on: 22-Nov-2014 Fluzone Quadrivalent 0.5 ML Intramuscular Suspension Lot #: [id number] on: 26-Apr-2016 Pneumococcal polysaccharide vaccine, 23 valent Lot #: [id number] on: 23-Dec-2016 Fluzone Quadrivalent 0.5 ML Intramuscular Suspension Prefilled Syringe Lot #: [id number] on: 23-Mar-2018 Influenza Comments: Approx [id number] Family History Name Dates Details Family history of Asthma (V17.5) Status: Active Name Dates Details Family history of Diabetes Mellitus (V18.0) Status: Active Name Dates Details Family history of Diabetes Mellitus (V18.0) Status: Active Family history of Diabetes Mellitus (V18.0) Status: Active Family history of congenital heart disease (V19.5, Z82.79) Status: Active Social History Name Dates Details - Status: Name Dates Details Never smoker Vital Signs Date Test Result Details [id number] BP Systolic 140 mm[Hg] Status: Comments: Location: LUE; Position: Sitting BP Diastolic 85 mm[Hg] Status: Comments: Location: LUE; Position: Sitting Height 62 in Status: Weight 230 lb Status: Body Mass Index Calculated 42.07 kg/m2 Status: Body Surface Area Calculated 2.03 m2 Status: Heart Rate 71 /min Status: Respiration Rate 16 /min Status: 3-Nnn-[id number]:11 BP Systolic 141 mm[Hg] Status: Comments: Location: LUE; Position: Sitting BP Diastolic 76 mm[Hg] Status: Comments: Location: LUE; Position: Sitting Height 62 in Status: Weight 230 lb Status: Body Mass Index Calculated 42.07 kg/m2 Status: Body Surface Area Calculated 2.03 m2 Status: Heart Rate 76 /min Status: Respiration Rate 16 /min Status: Temperature 97.6 f Status: Comments: Method: Temporal Results Date Description Value Details Results not documented Plan of Care Name Dates Details Planned Observations Planned Goals not documented Planned Encounters Appointment; CHELSY CRUZ M.D. On: 22-Mar-2019 9:30 Appointment; CHELSY CRUZ M.D. On: 02-Apr-2019 14:30 Appointment; AYUSH BOYD M.D. On: 11-Apr-2019 9:30 Appointment; YAKELIN BRITO M.D. On: 12-Apr-2019 11:30 Appointment; BALAJI DELGADO M.D. On: 14-Sep-2019 13:20 Interventions Provided Plan* 1. Tachy/ leighann: paroxysmal atrial fibrillation: * - cont eliquis 2.5mg bid, discussed WATCHMAN option given bruising * - PPM interrogation=reviewed and normal functioning PPM * 2. SOB: * - 05/18/2017 nuclear stress test OK * - s/p asthma exacerbation, s/p steroids * - echo: Nl EF 2015 and 2018 * - Nuclear stress test 2017 reviewed and normal * - cont Furosemide 20 mg po daily * 3. HTN: at home in the 120s * - will cont metoprolol 50mg daily * - cont Hydralazine 100 mg po daily * - cont Losartan 100 mg po daily * - cont Amlodipine 5 mg po daily * 4. Fasting lipid panel from 01/2018 reviewed and LDL 84 * 5. Mild and mild MR: * TTE 05/16/2018 reviewed and stable LV function with stable valvular disease * Repeat TTE 03/14/2019 reviewed and stable LV function and valvular disease * 6. Diastolic dysfunction * - cont current dose metoprolol,cont current doses of losartan and furosemide * 7. PVD * a. stable * b. stress alberto negative Instructions Name Dates Details Instructions not documented Encounters Appointment; AYUSH BOYD M.D. Encounter Diagnosis: Problem not documented On: 17-Mar-2017 12:30 Appointment; AYUSH BOYD M.D. Encounter Diagnosis: Problem not documented On: 27-Apr-2017 10:45 Appointment; BALAJI DELGADO M.D. Encounter Diagnosis: Problem not documented On: 13-May-2017 10:40 Appointment; [facility], [facility] Encounter Diagnosis: Problem not documented On: 18-May-2017 13:00 Appointment; BALAJI DELGADO M.D. Encounter Diagnosis: Problem not documented On: 18-May-2017 16:40 Appointment; AYUSH BOYD M.D. Encounter Diagnosis: Problem not documented On: 22-Aug-2017 12:45 Appointment; AYUSH BOYD M.D. Encounter Diagnosis: Problem not documented On: 07-Oct-2017 14:15 Appointment; AYUSH BOYD M.D. Encounter Diagnosis: Problem not documented On: 12-Oct-2017 12:45 Appointment; AYUSH BOYD M.D. Encounter Diagnosis: Problem not documented On: 20-Oct-2017 11:15 Appointment; AYUSH BOYD M.D. Encounter Diagnosis: Problem not documented On: 28-Oct-2017 11:15 Appointment; AYUSH BOYD M.D. Encounter Diagnosis: Problem not documented On: 04-Nov-2017 11:15 Appointment; LIONEL SANCHEZ Encounter Diagnosis: Problem not documented On: 10-Nov-2017 9:15 Appointment; KARYN CROSS M.D. Encounter Diagnosis: Problem not documented On: 12-Dec-2017 9:30 Appointment; AYUSH BOYD M.D. Encounter Diagnosis: Problem not documented On: 04-Jan-2018 14:45 Appointment; AYUSH BOYD M.D. Encounter Diagnosis: Problem not documented On: 06-Jan-2018 12:45 Appointment; AYUSH BOYD M.D. Encounter Diagnosis: Problem not documented On: 12-Jan-2018 10:15 Appointment; KARYN CROSS M.D. Encounter Diagnosis: Problem not documented On: 16-Jan-2018 11:00 Appointment; AYUSH BOYD M.D. Encounter Diagnosis: Problem not documented On: 03-Feb-2018 9:45 Appointment; KARYN CROSS M.D. Encounter Diagnosis: Problem not documented On: 13-Feb-2018 10:15 Appointment; BALAJI DELGADO M.D. Encounter Diagnosis: Problem not documented On: 14-Mar-2018 14:00 Appointment; AYUSH BOYD M.D. Encounter Diagnosis: Problem not documented On: 23-Mar-2018 14:30 Appointment; AYUSH BOYD M.D. Encounter Diagnosis: Problem not documented On: 23-Mar-2018 14:30 Appointment; LIZZY MARTIN NP Encounter Diagnosis: Problem not documented On: 03-Apr-2018 13:00 Appointment; [facility], ECHO Encounter Diagnosis: Problem not documented On: 03-May-2018 11:00 Appointment; [facility] Encounter Diagnosis: Problem not documented On: 16-May-2018 13:00 Appointment; BALAJI DELGAOD M.D. Encounter Diagnosis: Problem not documented On: 16-May-2018 14:00 Appointment; CLAY MCKEON P.A. Encounter Diagnosis: Problem not documented On: 01-Jun-2018 9:45 Appointment; TAWANNA HERNANDEZ NP Encounter Diagnosis: Problem not documented On: 08-Jun-2018 13:00 Appointment; TAWANNA HERNANDEZ NP Encounter Diagnosis: Problem not documented On: 22-Jun-2018 11:00 Appointment; KARYN CROSS M.D. Encounter Diagnosis: Problem not documented On: 26-Jun-2018 10:30 Appointment; TAWANNA HERNANDEZ NP Encounter Diagnosis: Problem not documented On: 27-Jul-2018 9:00 Appointment; KARYN CROSS M.D. Encounter Diagnosis: Problem not documented On: 25-Sep-2018 13:15 Appointment; JOCELIN LU M.D. Encounter Diagnosis: Problem not documented On: 06-Oct-2018 10:30 Appointment; AYUSH BOYD M.D. Encounter Diagnosis: Problem not documented On: 25-Oct-2018 9:45 Appointment; [facility], [facility] Encounter Diagnosis: Problem not documented On: 07-Nov-2018 10:00 Appointment; JOCELIN LU M.D. Encounter Diagnosis: Problem not documented On: 07-Nov-2018 11:00 Appointment; RODRIGO KING M.D. Encounter Diagnosis: Problem not documented On: 09-Nov-2018 15:00 Appointment; BALAJI DELGADO M.D. Encounter Diagnosis: Problem not documented On: 15-Nov-2018 15:00 Appointment; YAKELIN BRITO M.D. Encounter Diagnosis: Problem not documented On: 23-Nov-2018 13:00 Appointment; BALAJI DELGADO M.D. Encounter Diagnosis: Problem not documented On: 06-Dec-2018 13:00 Appointment; YAKELIN BRITO M.D. Encounter Diagnosis: Problem not documented On: 21-Dec-2018 10:30 Appointment; YAKELIN BRITO M.D. Encounter Diagnosis: Problem not documented On: 21-Dec-2018 15:30 Appointment; KARYN CROSS M.D. Encounter Diagnosis: Problem not documented On: 25-Dec-2018 13:45 Appointment; YAKELIN BRITO M.D. Encounter Diagnosis: Problem not documented On: 04-Jan-2019 9:30 Appointment; AYUSH BOYD M.D. Encounter Diagnosis: Problem not documented On: 25-Jan-2019 9:00 Appointment; KARYN CROSS M.D. Encounter Diagnosis: Problem not documented On: 30-Jan-2019 15:00 Appointment; TAWANNA HERNANDEZ NP Encounter Diagnosis: Problem not documented On: 06-Mar-2019 13:15 Appointment; [facility], [place] Encounter Diagnosis: Problem not documented On: 14-Mar-2019 14:00 Appointment; BALAJI DELGADO M.D. Encounter Diagnosis: Problem not documented On: 14-Mar-2019 15:40
[2019-04-27 16:01] LABS: BASOPHILS # (AUTO) 0.1 (0.0-0.1); BASOPHILS % 0.4 % (0.0-1.0); EOSINOPHILS # (AUTO) 0.1 (0.0-0.4); HEMATOCRIT 40.2 % (34.2-44.1); HEMOGLOBIN 13.1 g/dL (12.0-16.0); LYMPHOCYTES # (AUTO) 3.4 (1.0-3.2); LYMPHOCYTES % 27.6 % (18.0-39.1); MEAN CORPUSCULAR HEMOGLOBIN 30.5 pg (28-32); MEAN CORPUSCULAR HGB CONC 32.6 g/dL (31-35); MEAN CORPUSCULAR VOLUME 93.7 fL (81-99); MONOCYTES # (AUTO) 0.9 (0.2-0.8); MONOCYTES % 7.3 % (4.4-11.3); NEUTROPHILS # (AUTO) 7.9 (2.1-6.9); NEUTROPHILS % 63.1 % (38.7-80.0); PLATELET COUNT 367 x10e3/uL (140-360); RED BLOOD COUNT 4.29 x10e6/uL (3.6-5.1); RED CELL DISTRIBUTION WIDTH 13.1 % (11.7-14.4)
[2019-04-27 16:11] LABS: INR 0.94; PROTHROMBIN TIME 13.1 seconds (11.9-14.5)
[2019-04-27 16:12] LABS: PARTIAL THROMBOPLASTIN TIME 33.7 seconds (23.8-35.5)
[2019-04-27 16:19] LABS: ALBUMIN 3.5 g/dL (3.5-5.0); ALBUMIN/GLOBULIN RATIO 0.9 (0.8-2.0); ANION GAP 15.3 mmol/L (8-16); CALCIUM 9.2 mg/dL (8.4-10.2); CREATININE, SERUM 1.01 mg/dL (0.57-1.11); POTASSIUM 4.3 mmol/L (3.5-5.1)
[2019-04-27 16:25] LABS: CREATINE KINASE MB 1.7 ng/mL (0-5.0)
--- NOTE | 2019-04-27 17:00 | Diagnostic Imaging Report ---
EXAMINATION: CHEST SINGLE (PORTABLE) INDICATION: Chest pain COMPARISON: Chest radiograph 10/23/2017 FINDINGS: LINES/TUBES:Left chest pacer unchanged LUNGS:The lungs are well-inflated. Mild patchy opacity at the left lung base. PLEURA:Likely small left pleural effusion. No pneumothorax. MEDIASTINUM:Cardiomediastinal silhouette is stably enlarged. BONES/SOFT TISSUES:No acute osseous injury. ABDOMEN:No free air under the diaphragm. IMPRESSION: No focal pneumonia or pulmonary edema. Unchanged cardiomegaly. Likely small left pleural effusion. Signed by: Mahad Gonzalez MD on 04/27/2019 4:57 PM
[2019-04-27 17:18] LABS: BILIRUBIN,URINE NEGATIVE (NEGATIVE); CLARITY,URINE SL CLOUDY (CLEAR); COLOR,URINE YELLOW (YELLOW); KETONES,URINE NEGATIVE (NEGATIVE); LEUKOCYTE ESTERASE ,URINE NEGATIVE (NEGATIVE); NITRITE,URINE NEGATIVE (NEGATIVE); PROTEIN,URINE DIPSTICK TRACE (NEGATIVE); URINE UROBILINOGEN 0.2 mg/dL (0.2 - 1)
[2019-04-27 17:31] LABS: BACTERIA,URINE MANY /HPF; EPITHELIAL CELLS,URINE FEW /LPF
[2019-04-27] MEDS ORDERED: FUROSEMIDE INJ 10 MG/ML 2 ML VIAL IV ONE (20:00)
[2019-04-27 20:51] VITALS: BP 158/61
== END 2019-04-27 20:53 | disposition home or self-care (01) ==
LOC: ER 14:34
DX: I50.9 Heart failure, unspecified (principal); R60.9 Edema, unspecified
CPT/HCPCS: 36415; 71045; 80053; 81001; 82550; 82553; 83880; 84484; 85025; 85610; 85730; 93005; 99284; J1940

== ENCOUNTER 2019-08-14 15:33 | Inpatient (IN) | payer OTHER ==
[~2019-08-14] VITALS: Ht 157.5 cm; Wt 97.5 kg
[~2019-08-14 15:33] MED LIST changes: -SINGULAIR10 MG
--- OUTSIDE RECORDS SUMMARY | 2019-08-14 15:38 | XMS REPORT | Summary of Care ---
Author Berny Pham Unknown Address Unknown Phone Unavailable Care Team Providers Care Roll Repairer Name Role Phone OLIVER López, AYUSH Unavailable Unavailable DANNY López, BALAJI Unavailable Unavailable DARYL López, YAKELIN Unavailable Unavailable OLIVER MONTANEZ [place], AYUSH Marr Unavailable Unavailable DARYL MONTANEZ, SOLBARBARA Unavailable Unavailable ANTHONY MONTANEZ, CHELSY Unavailable Unavailable Cecilia OMNTANEZ, Rodrigo Unavailable Unavailable Danny MONTANEZ, Balaji Unavailable Unavailable LINDA KAMARA, CLAY Unavailable Unavailable DAVID A/C TECH-C, TAWANNA Aparicio Unavailable Unavailable GIA MONTANEZ [place], OTTO Pond Unavailable Unavailable AMERICA MONTANEZ, KARYN Unavailable Unavailable TABITHA MONTANEZ [place], JOCELIN BANKS Unavailable Unavailable Unavailable Unavailable Functional [...] Allergic rhinitis (477.9, J30.9) Status: Active Special DrFelipe Services Analysis Of Computerized Data Status: Active [...] Active Pedal edema (782.3, R60.0) Status: Active Leg abrasion (916.0, S80.819A) Status: [...] Increased urinary frequency (788.41, R35.0) Status: Active Pain in both feet (729.5, M79.671) Status: Active Mixed incontinence (788.33, N39.46) Status: [...] of lumbar region (756.19, 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: Active Lumbar spondylolysis (738.4, M43.06) Status: Active Lumbar radicular pain (724.4, M54.16) Status: Active Laceration of skin (879.8) Status: Active Cat bite (879.8, W55.01XA) Status: Active Obesity, morbid, BMI 40.0-49.9 (278.01, E66.01) Status: Active Bradycardia (427.89, R00.1) Status: Active 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, 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 Diabetes mellitus (250.00, E11.9) Status: Active Decreased pedal pulses (785.9, R09.89) Status: Active Essential (primary) hypertension (401.9, I10) Status: Active Asthma (493.90, J45.909) Status: Active Hyperlipidemia (272.4, E78.5) Status: Active Urinary symptom or sign (788.99, R39.9) Status: Active Financial difficulties (V60.2, Z59.8) Status: Active Nonspecific abnormal finding (796.9, R68.89) Status: Active Pain in lateral right lower extremity (729.5, M79.604) Status: Active Traumatic leg injury, right, initial encounter (959.7, S89.91XA) Status: Active Fall on steps, initial encounter (E880.9, W10.8XXA) Status: Active Tachycardia (785.0, R00.0) Status: Active Asthmatic bronchitis (493.90, J45.909) Status: Active Atrial fibrillation (427.31, I48.91) Status: Active Gout (274.9, M10.9) Status: Active Lumbar spondylosis (721.3, M47.816) Status: Active Failed back syndrome, lumbar (722.83, M96.1) Status: Active Obesity, Class III, BMI 40-49.9 (morbid obesity) (278.01, E66.01) Status: Active Medications Name Dates Details metFORMIN [...] EVERY DAY NEEDED * Quantity: 90 Refills: 2 AYUSH BOYD M.D. * Start : 23-Oct-2015 Active Eliquis 2.5 MG Oral Tablet Take 1 tablet by mouth twice a day * Quantity: 60 Refills: 6 BALAJI DELGADO M.D. * Start : 11-Sep-2018 Active Levalbuterol Tartrate 45 MCG/ACT Inhalation Aerosol INHALE 1 TO 2 PUFFS EVERY 4 TO 6 HOURS NEEDED. * Quantity: 1 Refills: 3 AYUSH BOYD M.D. * Start : 12-Nov-2016 Active 15 GM Inhaler Montelukast Sodium 10 MG Oral Tablet TAKE 1 TABLET BY MOUTH EVERY DAY * Quantity: 90 Refills: 2 AYUSH BOYD M.D. * Start : 28-Oct-2017 Active amLODIPine Besylate 5 MG Oral Tablet TAKE 1 TABLET BY MOUTH EVERY DAY * Quantity: 90 Refills: 0 BALAJI DELGADO M.D. * Start : 07-Jun-2018 Active Olmesartan Medoxomil 40 MG Oral Tablet TAKE 1 TABLET BY MOUTH EVERY DAY * Quantity: 90 Refills: 2 AYUSH BOYD M.D. * Start : 08-Jun-2018 Active Levalbuterol HCl - 0.63 MG/3ML Inhalation Nebulization Solution USE 1 VIAL IN NEBULIZER 3 TIMES A DAY. * Quantity: 1 Refills: 3 AYUSH BOYD M.D. * Start : 08-Jun-2018 Active 25 x [...] as directed * Quantity: 1 Refills: 0 BOLIVAR BRITO M.D.AFA * Start : 23-Nov-2018 Active 57 GM Tube OneTouch Ultra 2 w/Device Kit USE TO CHECK GLUCOSE ONCE DAILY * Quantity: 1 Refills: 0 OLIVER López, AYUSH * Start : 11-Dec-2018 Active OneTouch Ultra Blue In Vitro Strip test once daily * Quantity: 100 Refills: 0 OLIVER Suarez.Florina, AYUSH * Start : 11-Dec-2018 Active OneTouch Delica Lancets 33G USE AND DISCARD 1 LANCET DAILY TO MONITOR BLOOD SUGAR * Quantity: 1 Refills: 1 OLIVER López, AYUSH * Start : 11-Dec-2018 Active 100 Unit Box Trospium Chloride 20 MG Oral Tablet Take 1 tablet by mouth twice a day * Quantity: 60 Refills: 11 DARYL López, SOLAFA * Start : 11-Dec-2018 Active Breo Ellipta 100-25 MCG/INH Inhalation Aerosol Powder Breath Activated * Refills: 0 Active Carvedilol 12.5 MG Oral Tablet TAKE 1 TABLET TWICE DAILY WITH MEALS. * Quantity: 60 Refills: 1 BALAJI DELGADO M.D. * Start : 26-Jan-2019 Active predniSONE 10 MG Oral Tablet Take 2 tabs po qd x5 day, then 1 tab po qd x5 days * Quantity: 15 Refills: 0 OLIVER López, AYUSH * Start : 31-May-2019 Active Allergies and Adverse Reactions Name Dates Details codeine (Allergy) Status: Active Morphine Derivatives (Allergy) Status: Active Past Medical History Name Dates Details History of shortness of breath (V13.89, Z87.898) Status: Resolved Procedures Procedure Dates Details History of Back Surgery Completed History of Knee Surgery Completed History of Pacemaker Permanent Placement Completed History of Corneal LASIK Right Completed Immunization Name Dates Details Fluzone INJ Lot #: [id number] on: 04-Apr-2013 Fluzone INJ Lot #: [id number] on: 08-Feb-2014 Prevnar 13 Intramuscular Suspension Lot #: [id number] on: 22-Nov-2014 Fluzone Quadrivalent 0.5 ML Intramuscular Suspension Lot #: [id number] on: 26-Apr-2016 Pneumococcal polysaccharide vaccine, 23 valent Lot #: [id number] on: 23-Dec-2016 Fluzone Quadrivalent 0.5 ML Intramuscular Suspension Prefilled Syringe Lot #: [id number] on: 23-Mar-2018 Influenza on: 06-Mar-2019 Tdap on: 06-Mar-2019 Influenza Comments: Approx [id number] Family History Name [...] smoker Vital Signs Date Test Result Details No Known Vitals to report Results Date Description Value Details Results not documented Plan of Care Name Dates Details Planned Observations Planned Goals not documented Planned Encounters Nutrition Educator Service Request Appointment; AYUSH BOYD M.D. On: 11-Jul-2019 12:30 Appointment; CHELSY CRUZ M.D. On: 03-Sep-2019 14:30 Appointment; BALAJI DELGADO M.D. On: 14-Sep-2019 13:20 Appointment; AYUSH BOYD M.D. On: 10-Oct-2019 10:00 Instructions Name Dates Details Instructions not documented [...] Problem not documented On: 03-Apr-2018 13:00 Appointment; [facility] Encounter Diagnosis: Problem not documented On: 03-May-2018 11:00 [facility]oint[facility]; [facility] Encounter Diagnosis: Problem not documented On: 16-May-2018 13:00 Appointment; BALAJI DELGADO M.D. Encounter Diagnosis: [...] Problem not documented On: 06-Mar-2019 13:15 Appointment; [facility], [facility] Encounter Diagnosis: Problem not documented On: 14-Mar-2019 14:00 Appointment; BALAJI DELGADO M.D. Encounter Diagnosis: Problem not documented On: 14-Mar-2019 15:40 Appointment; KARYN CROSS M.D. Encounter Diagnosis: Problem not documented On: 22-Mar-2019 13:00 Appointment; KARYN CROSS M.D. Encounter Diagnosis: Problem not documented On: 02-Apr-2019 10:45 Appointment; CHELSY CRUZ M.D. Encounter Diagnosis: Problem not documented On: 02-Apr-2019 14:30 Appointment; AYUSH BOYD M.D. Encounter Diagnosis: Problem not documented On: 11-Apr-2019 9:30 Appointment; YAKELIN BRITO M.D. Encounter Diagnosis: Problem not documented On: 12-Apr-2019 11:30 Appointment; TAWANNA HERNANDEZ NP Encounter Diagnosis: Problem not documented On: 24-Apr-2019 7:30 Appointment; [facility], ECHO Encounter Diagnosis: Problem not documented On: 24-Apr-2019 8:00 Appointment; [facility], E[facility] Encounter Diagnosis: Problem not documented On: 27-Apr-2019 9:00 Appointment; AYUSH BOYD M.D. Encounter Diagnosis: Problem not documented On: 31-May-2019 14:15 Appointment; AYUSH BOYD M.D. Encounter Diagnosis: Problem not documented On: 01-Jun-2019 15:45 Appointment; CHELSY CRUZ M.D. Encounter Diagnosis: Problem not documented On: 04-Jun-2019 14:30 Appointment; AYUSH BOYD M.D. Encounter Diagnosis: Problem not documented On: 11-Jul-2019 12:30
--- OUTSIDE RECORDS SUMMARY | 2019-08-14 15:38 | XMS REPORT | Summary of Care ---
Author Author OLIVER López, AYUSH Olivares Unknown Address Unknown Phone Unavailable Care Team Providers Care Supervisor Filtration Name Role Phone OLIVER López, AYUSH Unavailable Unavailable DANNY López, BALAJI Unavailable Unavailable DARYL López, YAKELIN Unavailable Unavailable OLIVER MONTANEZ [place], AYUSH Marr Unavailable Unavailable DARYL MONTANEZ, SOLAFJimena Unavailable Unavailable ANTHONY MONTANEZ, CHELSY Unavailable Unavailable Cecilia MONTANEZ, Rodrigo Unavailable Unavailable Danny MONTANEZ, Balaji Unavailable Unavailable LINDA PA-C, CLAY Unavailable Unavailable DAVID EVENTS MANAGER-C, TAWANNA Aparicio Unavailable Unavailable GIA MONTANEZ [place], OTTO Pond Unavailable Unavailable AMERICA MONTANEZ, KARYN Unavailable Unavailable TABITHA MONTANEZ [place], JOCELIN BANKS Unavailable Unavailable Unavailable Unavailable Functional [...] Status: Active Bradycardia (427.89, R00.1) Status: Active Lumbar spondylosis (721.3, M47.816) Status: Active Obesity, Class III, BMI 40-49.9 (morbid obesity) (278.01, E66.01) Status: Active 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 * Start : 26-Jan-2019 Active Cefdinir 300 MG Oral Capsule TAKE 1 CAPSULE TWICE DAILY UNTIL GONE. * Quantity: 20 Refills: 0 OLIVER Suarez.D., AYUSH * Start : 31-May-2019 End : 10-Jun-2019 Active predniSONE 10 MG Oral Tablet Take 2 tabs po qd x5 day, then 1 tab po qd x5 days * Quantity: 15 Refills: 0 OLIVER Suarez.D., AYUSH * Start : 31-May-2019 Active Allergies and Adverse Reactions Name Dates Details codeine (Allergy) Status: Active Morphine Derivatives (Allergy) Status: Active Past Medical History Name Dates Details History of shortness of breath (V13.89, Z87.898) Status: Resolved Procedures Procedure Dates Details Physical Therapy Date: 02-Apr-2019 CT Pelvis w contrast [id number] Date: 24-Apr-2019 History of Back Surgery Completed History of Knee Surgery Completed History of Pacemaker Permanent Placement Completed History of Corneal LASIK Right Completed Immunization Name Dates Details Fluzone INJ Lot #: [id number] on: 04-Apr-2013 Fluzone INJ Lot #: [id number] on: 08-Feb-2014 Prevnar 13 Intramuscular Suspension Lot #: [id number] on: 22-Nov-2014 Fluzone Quadrivalent 0.5 ML Intramuscular Suspension Lot #: [id number] on: 26-Apr-2016 Pneumococcal polysaccharide vaccine, 23 valent Lot #: [id number] on: 23-Dec-2016 Fluzone Quadrivalent 0.5 ML Intramuscular Suspension Prefilled Syringe Lot #: [id number] on: 23-Mar-2018 Influenza on: 06-Mar-2019 Tdap on: [...] smoker Vital Signs Date Test Result Details 24-Sux-[id number]:29 BP Systolic 146 mm[Hg] Status: Comments: Location: LUE; Position: Sitting BP Diastolic 87 mm[Hg] Status: Comments: Location: LUE; Position: Sitting Height 62 in Status: Weight 234.0625 lb Status: Body Mass Index Calculated 42.81 kg/m2 Status: Body Surface Area Calculated 2.04 m2 Status: Temperature 97.1 f Status: Heart Rate 130 /min Status: Respiration Rate 18 /min Status: 26-Xpp-004685:17 BP Systolic 148 mm[Hg] Status: Comments: Location: LUE; Position: Sitting BP Diastolic 83 mm[Hg] Status: Comments: Location: LUE; Position: Sitting Heart Rate 131 /min Status: :16 BP Systolic 161 mm[Hg] Status: Comments: Location: LUE; Position: Sitting BP Diastolic 86 mm[Hg] Status: Comments: Location: LUE; Position: Sitting Height 62 in Status: Weight 236.4375 lb Status: Body Mass Index Calculated 43.25 kg/m2 Status: Body Surface Area Calculated 2.05 m2 Status: Temperature 99.3 f Status: Comments: Method: Temporal Heart Rate 132 /min Status: Respiration Rate 18 /min Status: O2 SAT 96 % Status: Results Date Description Value Details Results not documented Plan of Care Name Dates Details Planned Observations Planned Goals not documented Planned Encounters Appointment; CHELSY CRUZ M.D. On: 04-Jun-2019 14:30 Appointment; BALAJI DELGADO M.D. On: 14-Sep-2019 13:20 Appointment; AYUSH BOYD M.D. On: 10-Oct-2019 10:00 Interventions Provided Plan* cont current plan * spoke with Dr. Delgado. Will monitor HR for now. * ER precautions * f/u prn Instructions Name Dates Details Instructions not documented [...] Problem not documented On: 03-Apr-2018 13:00 Appointment; [facility] Encounter Diagnosis: Problem not documented On: 03-May-2018 11:00 Appointment; [facility] Encounter Diagnosis: Problem not [...] not documented On: 09-Nov-2018 15:00 Appointment; BALAJI DLEGADO M.D. Encounter Diagnosis: Problem not documented On: [...] Problem not documented On: 06-Mar-2019 13:15 [facility] En[facility] Diagnosis: Problem not documented On: 14-Mar-2019 [...]
--- OUTSIDE RECORDS SUMMARY | 2019-08-14 15:38 | XMS REPORT | Summary of Care ---
Author Author OLIVER López, AYUSH Olivares Unknown Address Unknown Phone Unavailable Care Team Providers Care Turbo Electric Operator Name Role Phone OLIVER López, AYUSH Unavailable Unavailable DANNY López, BALAJI Unavailable Unavailable DARYL López, YAKELIN Unavailable Unavailable OLIVER MONTANEZ [place], AYUSH Marr Unavailable Unavailable DARYL MONTANEZ, SOLAFJimena Unavailable Unavailable ANTHONY MONTANEZ, CHELSY Unavailable Unavailable Cecilia MONTANEZ, Rodrigo Unavailable Unavailable Danny MONTANEZ, Balaji Unavailable Unavailable LINDA PA-C, CLAY Unavailable Unavailable DAVID ENGRAVINGS POLISHER-C, TAWANNA Aparicio Unavailable Unavailable GIA MONTANEZ [place], OTTO Pond Unavailable Unavailable AMERICA MONTANEZ, KARYN Unavailable Unavailable TABITHA MONTANEZ [place], JOCELIN BANKS Unavailable Unavailable Unavailable Unavailable Functional [...] Left ankle swelling (719.07, M25.472) Status: Active Colon cancer screening (V76.51, Z12.11) [...] Active Asthmatic bronchitis (493.90, J45.909) Status: Active Gout (274.9, M10.9) Status: Active Lumbar spondylosis (721.3, M47.816) Status: Active Failed back syndrome, lumbar (722.83, M96.1) Status: Active Obesity, Class III, BMI 40-49.9 (morbid obesity) (278.01, E66.01) Status: Active Diarrhea, unspecified type (787.91, R19.7) Status: Active Atrial fibrillation (427.31, I48.91) Status: Active Asthma (493.90, J45.909) Status: Active Medications Name Dates Details metFORMIN HCl ER 500 MG Oral Tablet Extended Release 24 Hour TAKE 1 TABLET DAILY Quantity: 90 AYUSH BOYD M.D. Active Furosemide 20 MG Oral Tablet TAKE [...] BOYD M.D. * Start : 28-Oct-2017 Active Olmesartan Medoxomil 40 MG Oral Tablet [...] weekly therafter * Quantity: 2 Refills: 6 DARYL López SOLAFJimena * Start : 23-Nov-2018 Active 30 GM [...] once daily * Quantity: 100 Refills: 0 AYUSH BOYD M.D. * Start : 11-Dec-2018 Active OneTouch Elieser Lancets 33G USE AND DISCARD 1 LANCET DAILY TO MONITOR BLOOD SUGAR * Quantity: 1 Refills: 1 AYUSH BOYD M.D. * Start : 11-Dec-2018 Active 100 Unit [...] DELGADO M.D. * Start : 26-Jan-2019 Active Vitamin D3 Complete TABS * Refills: 0 Active Allergies and Adverse Reactions Name Dates Details codeine (Allergy) Status: Active Morphine Derivatives (Allergy) Status: Active Past Medical History Name Dates Details History of shortness of breath (V13.89, Z87.898) Status: Resolved Procedures Procedure Dates Details [QLH] TSH, 3RD GENERATION Date: 11-Jul-2019 [QLH] T4, FREE Date: 11-Jul-2019 [QLH] CMP W/EGFR Date: 11-Jul-2019 [Q] ASHLEIGH IFA SCREEN W/REFL TO TITER AND PATTERN, IFA Date: 11-Jul-2019 [QLH] SED RATE BY MODIFIED WESTERGREN Date: 11-Jul-2019 [QLH] C-REACTIVE PROTEIN Date: 11-Jul-2019 History of Back Surgery Completed History of Knee Surgery Completed History of Pacemaker Permanent Placement Completed History of Corneal LASIK Right Completed Immunization Name Dates Details Fluzone INJ Lot #: [id number] on: 04-Apr-2013 Fluzone INJ Lot #: [id number] on: 08-Feb-2014 Prevnar 13 Intramuscular Suspension Lot #: [id number] on: 22-Nov-2014 Fluzone Quadrivalent 0.5 ML Intramuscular Suspension Lot #: [id number] on: 26-Apr-2016 Pneumococcal polysaccharide vaccine, 23 valent Lot #: [id number] on: 23-Dec-2016 Fluzone Quadrivalent 0.5 ML Intramuscular Suspension Prefilled Syringe Lot #: [id number] on: 23-Mar-2018 Influenza on: 06-Mar-2019 Tdap on: [...] smoker Vital Signs Date Test Result Details 6-Rmr-[id number]:36 BP Systolic 119 mm[Hg] Status: Comments: Location: LUE; Position: Sitting BP Diastolic 80 mm[Hg] Status: Comments: Location: LUE; Position: Sitting Height 62 in Status: Weight 222.4 lb Status: Body Mass Index Calculated 40.68 kg/m2 Status: Body Surface Area Calculated 2 m2 Status: Temperature 96.9 f Status: Comments: Method: Temporal Heart Rate 130 /min Status: Comments: Location: L Radial; Respiration Rate 16 /min Status: Comments: Quality: Normal Results Date Description Value Details Results not documented Plan of Care Name Dates Details Planned Observations Planned Goals not documented Planned Encounters Clinical Appeals Specialist Service Request Gastroenterology Referral Pulmonary Referral Appointment; AYUSH BOYD M.D. On: 08-Aug-2019 13:30 Appointment; CHELSY CRUZ M.D. On: 03-Sep-2019 14:30 Appointment; BALAJI DELGADO M.D. On: 14-Sep-2019 13:20 Appointment; AYUSH BOYD M.D. On: 10-Oct-2019 10:00 Interventions Provided Labs/Procedures/Imaging* [Q] ASHLEIGH IFA SCREEN W/REFL TO TITER AND PATTERN, IFA; To Be Done: 11 Jul 2019 * [QLH] CMP W/EGFR; To Be Done: 11 Jul 2019 * [QLH] C-REACTIVE PROTEIN; To Be Done: 11 Jul 2019 * [QLH] SED RATE BY MODIFIED WESTERGREN; To Be Done: 11 Jul 2019 * [QLH] T4, FREE; To Be Done: 11 Jul 2019 * [QLH] TSH, 3RD GENERATION; To Be Done: 11 Jul 2019 Instructions Name Dates Details Instructions not documented [...] Problem not documented On: 02-Apr-2019 14:30 Appointment; AYSUH BOYD M.D. Encounter Diagnosis: Problem not documented [...]
--- OUTSIDE RECORDS SUMMARY | 2019-08-14 15:39 | XMS REPORT | Summary of Care ---
Author Author Fatou Weiss M.A. Unknown Address [facility] Phone Unavailable Care Team Providers Care Office Support Associate Name Role Phone OLIVER López, AYUSH Unavailable Unavailable DANNY López, BALAJI Unavailable Unavailable DARYL López, YAKELIN Unavailable Unavailable OLIVER MONTANEZ [place], AYUSH Marr Unavailable Unavailable DARYL MONTANEZ, YAKELIN Unavailable Unavailable ANTHONY MONTANEZ, CHELSY Unavailable Unavailable Cecilia MONTANEZ, Rodrigo Unavailable Unavailable Danny MONTANEZ, Balaji Unavailable Unavailable LINDA FUENTESC, CLAY Unavailable Unavailable DAVID CODING TECHNICIAN-C, TAWANNA Aparicio Unavailable Unavailable GIA MONTANEZ [place], OTTO Pond Unavailable Unavailable AMERICA MONTANEZ, KARYN Unavailable Unavailable TABITHA MONTANEZ [place], JOCELIN BANKS Unavailable Unavailable Unavailable Unavailable Functional [...] 40-49.9 (morbid obesity) (278.01, E66.01) Status: Active Atrial fibrillation (427.31, I48.91) Status: Active Asthma (493.90, J45.909) Status: Active Diarrhea, unspecified type (787.91, R19.7) Status: Active Medications Name Dates Details metFORMIN [...] weekly therafter * Quantity: 2 Refills: 6 BOLIVAR BRITO M.D.AFJimena * Start : 23-Nov-2018 Active 30 GM Tube Desitin 40 % External Paste Apply to perineum 3 times daily as directed * Quantity: 1 Refills: 0 DARYL López SOLAFJimena * Start : 23-Nov-2018 Active 57 GM Tube OneTouch Ultra 2 w/Device Kit USE TO CHECK GLUCOSE ONCE DAILY * Quantity: 1 Refills: 0 AYUSH OBYD M.D. * Start : 11-Dec-2018 Active OneTouch Ultra Blue In Vitro Strip test once daily * Quantity: 100 Refills: 0 AYUSH BOYD M.D. * Start : 11-Dec-2018 Active OneTouch [place] Lancets 33G USE AND DISCARD 1 LANCET [...] Date: 11-Jul-2019 [QLH] C-REACTIVE PROTEIN Date: 11-Jul-2019 [Q] Clostridium difficile Toxin/GDH with reflex to PCR Date: 11-Jul-2019 [Q] CULTURE, STOOL, MARCELINO/SHIG/CAMPY AND SHIGA TOXINS EIA W/RFL E.COLI O157 CULT Date: 11-Jul-2019 History of Back Surgery Completed History of Knee Surgery Completed History of Pacemaker Permanent Placement Completed History of Corneal LASIK Right Completed Immunization Name Dates Details Fluzone INJ Lot #: [id number] on: 04-Apr-2013 Fluzone INJ Lot #: [id number] on: 08-Feb-2014 Prevnar 13 Intramuscular Suspension Lot #: [id number] on: 22-Nov-2014 Fluzone Quadrivalent 0.5 ML Intramuscular Suspension Lot #: [id number] on: 26-Apr-2016 Pneumococcal polysaccharide vaccine, 23 valent Lot #: [id number] on: 23-Dec-2016 Fluzone Quadrivalent 0.5 ML Intramuscular Suspension Prefilled Syringe Lot #: [id number] on: 23-Mar-2018 Influenza on: 06-Mar-2019 Tdap on: [...] smoker Vital Signs Date Test Result Details 2-Dec-896314:36 BP Systolic 119 mm[Hg] Status: Comments: Location: [...] Observations Planned Goals not documented Planned Encounters Shoe Cementer Service Request Pulmonary Referral Appointment; AYUSH BOYD M.D. On: 08-Aug-2019 13:30 Appointment; CHELSY CRUZ M.D. On: 03-Sep-2019 14:30 Appointment; BALAJI DELGADO M.D. On: 14-Sep-2019 13:20 Appointment; AYUSH BOYD M.D. On: 10-Oct-2019 10:00 Interventions Provided Labs/Procedures/Imaging* [Q] ASHLEIGH IFA SCREEN W/REFL TO TITER AND PATTERN, IFA; To Be Done: 11 Jul 2019 * [Q] Clostridium difficile Toxin/GDH with reflex to PCR; To Be Done: 11 Jul 2019 * [Q] CULTURE, STOOL, MARCELINO/SHIG/CAMPY AND SHIGA TOXINS EIA W/RFL E.COLI O157 CULT; To Be Done: 11 Jul 2019 * [QLH] CMP W/EGFR; To Be Done: 11 Jul 2019 * [QLH] C-REACTIVE PROTEIN; To Be Done: 11 Jul 2019 * [QLH] SED RATE BY MODIFIED WESTERGREN; To Be Done: 11 Jul 2019 * [QLH] T4, FREE; To Be Done: 11 Jul 2019 * [QLH] TSH, 3RD GENERATION; To Be Done: 11 Jul 2019 Follow-ups/Referrals* Gastroenterology Referral; To Be Done: 11 Jul 2019 Plan* w/u diarrhea and wt loss * refer to GI and pulm * stay hydrated * f/u prn or 1 month Instructions Name Dates Details Instructions not documented [...] Problem not documented On: 03-Apr-2018 13:00 Appointment; [facility] [place] Encounter Diagnosis: Problem not documented On: 03-May-2018 11:00 [facility] Encounter Diagnosis: Problem not documented [...] Problem not documented On: 06-Mar-2019 13:15 Appointment; [facility], E[facility] Encounter Diagnosis: Problem not documented On: [...]
--- OUTSIDE RECORDS SUMMARY | 2019-08-14 15:39 | XMS REPORT | Summary of Care ---
Author Author Becki Little Organization Unknown Address Unknown Phone Unavailable Care Team Providers Care Crime Specialist Name Role Phone OLIVER López, AYUSH Unavailable Unavailable Becki Little Unavailable Unavailable DANNY López, BALAJI Unavailable Unavailable DARYL López, YAKELIN Unavailable Unavailable OLIVER MONTANEZ [place], AYUSH Marr Unavailable Unavailable DARYL MONTANEZ, YAKELIN Unavailable Unavailable ANTHONY MONTANEZ, CHELSY Unavailable Unavailable Cecilia MONTANEZ, Rodrigo Unavailable Unavailable Danny MONTANEZ, Balaji Unavailable Unavailable LINDA FUENTESC, CLAY Unavailable Unavailable DAVID THERMOMETER PRODUCTION WORKER-C, TAWANNA Aparicio Unavailable Unavailable GIA MONTANEZ [place], OTTO Pond Unavailable Unavailable AMERICA MONTANEZ, KARYN Unavailable Unavailable TABITHA MONTANEZ [place], JOCELIN BANKS Unavailable Unavailable Unavailable Unavailable Functional [...] * Quantity: 1 Refills: 0 BOLIVAR BRITO M.D.AFJimena * Start : 23-Nov-2018 Active 57 GM [...] Name Dates Details Fluzone INJ Lot #: [id number] on: 04-Apr-2013 Fluzone INJ Lot #: [id number] on: 08-Feb-2014 Prevnar 13 Intramuscular Suspension Lot #: [id number] on: 22-Nov-2014 Fluzone Quadrivalent 0.5 ML Intramuscular Suspension Lot #: [id number] on: 26-Apr-2016 Pneumococcal polysaccharide vaccine, 23 valent Lot #: [id number] on: 23-Dec-2016 Fluzone Quadrivalent 0.5 ML Intramuscular Suspension Prefilled Syringe Lot #: [id number] on: 23-Mar-2018 Influenza on: 06-Mar-2019 Tdap on: [...] smoker Vital Signs Date Test Result Details 7-Ahp-462147:36 BP Systolic 119 mm[Hg] Status: Comments: Location: [...] Planned Goals not documented Planned Encounters Appointment; AYUSH BOYD M.D. On: 08-Aug-2019 13:30 [...] Problem not documented On: 20-Oct-2017 11:15 Appointment; AYUHS BOYD M.D. Encounter Diagnosis: Problem not documented On: 28-Oct-2017 11:15 Appointment; AYUSH BOYD M.D. Encounter Diagnosis: Problem not documented On: 04-Nov-2017 11:15 Appointment; BOLA SANCHEZTERESSA Encounter Diagnosis: Problem not documented On: 10-Nov-2017 [...]
--- OUTSIDE RECORDS SUMMARY | 2019-08-14 15:39 | XMS REPORT | Summary of Care ---
Author Author Mariah Hoyt R.N. Unknown Address [facility] Phone Unavailable Care Team Providers Care Contact Center Director Name Role Phone OLIVER López, AYUSH Unavailable Unavailable DANNY López, BALAJI Unavailable Unavailable DARYL López, YAKELIN Unavailable Unavailable OLIVER MONTANEZ [place], AYUSH Marr Unavailable Unavailable DARYL MONTANEZ, SOLAFJimena Unavailable Unavailable ANTHONY MONTANEZ, CHELSY Unavailable Unavailable Cecilia MONTANEZ, Rodrigo Unavailable Unavailable Danny MONTANEZ, Balaji Unavailable Unavailable LINDA OTTO-C, CLAY Unavailable Unavailable DAVID TITLE INVESTIGATOR-C, TAWANNA Aparicio Unavailable Unavailable GIA MONTANEZ [place], OTTO Pond Unavailable Unavailable AMERICA MONTANEZ, KARYN Unavailable Unavailable TABITHA MONTANEZ [place], JOCELIN BANKS Unavailable Unavailable Unavailable Unavailable Functional [...] daily * Quantity: 100 Refills: 0 OLIVER López, AYUSH * Start [...] Aerosol Powder Breath Activated * Refills: 0 M.A. Active Carvedilol 12.5 MG Oral Tablet TAKE 1 TABLET TWICE DAILY WITH MEALS. * Quantity: 60 Refills: 1 BALAJI DELGADO M.D. * Start : 26-Jan-2019 Active Vitamin D3 Complete TABS * Refills: 0 M.A. Active Allergies and Adverse Reactions Name Dates [...] Name Dates Details Fluzone INJ Lot #: [id number] on: 04-Apr-2013 Fluzone INJ Lot #: [id number] on: 08-Feb-2014 Prevnar 13 Intramuscular Suspension Lot #: [id number] on: 22-Nov-2014 Fluzone Quadrivalent 0.5 ML Intramuscular Suspension Lot #: [id number] on: 26-Apr-2016 Pneumococcal polysaccharide vaccine, 23 valent Lot #: [id number] on: 23-Dec-2016 Fluzone Quadrivalent 0.5 ML Intramuscular Suspension Prefilled Syringe Lot #: [id number] on: 23-Mar-2018 Influenza on: 06-Mar-2019 Tdap on: [...] smoker Vital Signs Date Test Result Details [id number]-Emu-[id number] BP Systolic 119 mm[Hg] Status: Comments: Location: [...] not documented On: 04-Nov-2017 11:15 Appointment; BOLA SANCHEZSAKINAILEANA Encounter Diagnosis: Problem not documented On: 10-Nov-2017 [...] Problem not documented On: 03-Apr-2018 13:00 Appointment; MICHAEL, [place] Encounter Diagnosis: Problem not documented On: 03-May-2018 11:00 Appointment; [facility], [place] Encounter Diagnosis: Problem not documented On: [...]
--- OUTSIDE RECORDS SUMMARY | 2019-08-14 15:39 | XMS REPORT | Summary of Care ---
Author Author OLVIER López, AYUSH Olivares Unknown Address Unknown Phone Unavailable Care Team Providers Care Forming Mill Operator Name Role Phone OLIVER López, AYUSH Unavailable Unavailable DANNY López, BALAJI Unavailable Unavailable DARYL López, YAKELIN Unavailable Unavailable OLIVER MONTANEZ MD, AYUSH Marr Unavailable Unavailable DARYL MONTANEZ, SOLAFJimena Unavailable Unavailable ANTHONY MONTANEZ, CHELSY Unavailable Unavailable Cecilia MONTANEZ, Rodrigo Unavailable Unavailable Danny MONTANEZ, Balaji Unavailable Unavailable LINDA PA-C, CLAY Unavailable Unavailable DAVID LEAD NEURODIAGNOSTIC TECHNOLOGIST-C, TAWANNA Aparicio Unavailable Unavailable GIA MONTANEZ MD, OTTO Pnod Unavailable Unavailable AMERICA MONTANEZ, KARYN Unavailable Unavailable TABITHA MONTANEZ MD, JOCELIN BANKS Unavailable Unavailable Unavailable Unavailable Functional [...] Name Dates Details Fluzone INJ Lot #: [id number] on: 04-Apr-2013 Fluzone INJ Lot #: [id number] on: 08-Feb-2014 Prevnar 13 Intramuscular Suspension Lot #: [id number] on: 22-Nov-2014 Fluzone Quadrivalent 0.5 ML Intramuscular Suspension Lot #: [id number] on: 26-Apr-2016 Pneumococcal polysaccharide vaccine, 23 valent Lot #: [id number] on: 23-Dec-2016 Fluzone Quadrivalent 0.5 ML Intramuscular Suspension Prefilled Syringe Lot #: [id number] on: 23-Mar-2018 Influenza on: 06-Mar-2019 Tdap on: [...] smoker Vital Signs Date Test Result Details 7-Drj-544571:36 BP Systolic 119 mm[Hg] Status: Comments: Location: [...] Observations Planned Goals not documented Planned Encounters Petroleum Refinery Operator Service Request Gastroenterology Referral Pulmonary Referral Appointment; [...] GENERATION; To Be Done: 11 Jul 2019 Plan* [...] Problem not documented On: 06-Mar-2019 13:15 Appointment; [facility], [place] Encounter Diagnosis: Problem not [...]
--- OUTSIDE RECORDS SUMMARY | 2019-08-14 15:40 | XMS REPORT | Summary of Care ---
Author Author OLIVER López, AYUSH Olivares Unknown Address Unknown Phone Unavailable Care Team Providers Care Snack Bar Attendant Name Role Phone OLIVER López, AYUSH Unavailable Unavailable DANNY López, BALAJI Unavailable Unavailable DARYL López, YAKELIN Unavailable Unavailable OLIVER MONTANEZ [place], AYUSH Marr Unavailable Unavailable DARYL MONTANEZ, SOLAFJimena Unavailable Unavailable ANTHONY MONTANEZ, CHELSY Unavailable Unavailable Cecilia MONTANEZ, Rodrigo Unavailable Unavailable Danny MONTANEZ, Balaji Unavailable Unavailable LINDA PA-C, CLAY Unavailable Unavailable DAVID METER/RELAY TECHNICIAN-C, TAWANNA Aparicio Unavailable Unavailable GIA MONTANEZ [place], O[place]O Pond Unavailable Unavailable AMERICA MONTANEZ, KARYN Unavailable Unavailable TABITHA MONTANEZ [place], JOCELIN BANKS Unavailable Unavailable Unavailable Unavailable Functional [...] AYUSH * Start : 11-Dec-2018 Active One[employer] [place] [...] Z87.898) Status: Resolved Procedures Procedure Dates Details [Q] Clostridium difficile Toxin/GDH with reflex to PCR Date: 11-Jul-2019 [Q] CULTURE, STOOL, MARCELINO/SHIG/CAMPY AND SHIGA TOXINS EIA W/RFL E.COLI O157 CULT Date: 11-Jul-2019 History of Back Surgery Completed History of Knee Surgery Completed History of Pacemaker Permanent Placement Completed History of Corneal LASIK Right Completed Immunization Name Dates Details Fluzone INJ Lot #: [id number] on: 04-Apr-2013 Fluzone INJ Lot #: [id number] on: 08-Feb-2014 Prevnar 13 Intramuscular Suspension Lot #: [id number] on: 22-Nov-2014 Fluzone Quadrivalent 0.5 ML Intramuscular Suspension Lot #: [id number] on: 26-Apr-2016 Pneumococcal polysaccharide vaccine, 23 valent Lot #: [id number] on: 23-Dec-2016 Fluzone Quadrivalent 0.5 ML Intramuscular Suspension Prefilled Syringe Lot #: [id number] on: 23-Mar-2018 Influenza on: 06-Mar-2019 Tdap on: [...] smoker Vital Signs Date Test Result Details :36 BP Systolic 119 mm[Hg] Status: Comments: Location: [...] Quality: Normal Results Date Description Value Details :16 [QLH] CMP W/EGFR GLUCOSE 146 mg/dl (Above high threshold) Range: 65-139 Comments: Non-fasting reference interval UREA NITROGEN (BUN) 30 mg/dl (Above high threshold) Range: 7-25 CREATININE 1.14 mg/dl (Above high threshold) Range: 0.60-0.93 Comments: For patients >49 years of age, the reference limitfor Creatinine is approximately 13% higher for peopleidentified as -Turkish. eGFR NON- 46 {ML/MIN/1.7} (Below low threshold) Range: > OR=60 eGFR 54 {ML/MIN/1.7} (Below low threshold) Range: > OR=60 BUN/CREATININE RATIO 26 {CALC} (Above high threshold) Range: 6-22 SODIUM 137 mmol/L (Normal) Range: 135-146 POTASSIUM 5.3 mmol/L (Normal) Range: 3.5-5.3 CHLORIDE 102 mmol/L (Normal) Range: 98-110 CARBON DIOXIDE 25 mmol/L (Normal) Range: 20-32 CALCIUM 9.6 mg/dl (Normal) Range: 8.6-10.4 PROTEIN, TOTAL 6.5 g/dl (Normal) Range: 6.1-8.1 ALBUMIN 3.9 g/dl (Normal) Range: 3.6-5.1 GLOBULIN 2.6 {G/DL__CALC} (Normal) Range: 1.9-3.7 ALBUMIN/GLOBULIN RATIO 1.5 {CALC} (Normal) Range: 1.0-2.5 BILIRUBIN, TOTAL 0.5 mg/dl (Normal) Range: 0.2-1.2 ALKALINE PHSPHATASE 103 u/l (Normal) Range: 37-153 AST 16 u/l (Normal) Range: 10-35 ALT 16 u/l (Normal) Range: 6-29 :16 [QLH] SED RATE BY MODIFIED WESTERGREN SED RATE BY MODIFIED WESTERGREN 11 mm/h (Normal) Range: < OR=30 :16 [Q] ASHLEIGH IFA SCREEN W/REFL TO TITER AND PATTERN, IFA ASHLEIGH SCREEN, IFA POSITIVE (Abnormal) Range: NEGATIVE Comments: ASHLEIGH IFA is a first line screen for detecting thepresence of up to approximately 150 autoantibodies invarious autoimmune diseases. A positive ASHLEIGH IFA resultis suggestive of autoimmune disease and reflexes totiter and pattern. Further laboratory testing may beconsidered if clinically indicated. For additional information, please refer [email or web address](This link is being provided for informational/educational purposes only.) :16 [Q] Antinuclear Antibody, Titer and Pattern Comments: A low level ASHLEIGH titer may be present in pre-clinicalautoimmune diseases and normal individuals. Reference Range <1:40 Negative 1:40-1:80 Low Antibody Level >1:80 Elevated Antibody Level ASHLEIGH TITER 1:40 {titer} (Above high threshold) Comments: A low level ASHLEIGH titer may be present in pre-clinicalautoimmune diseases and normal individuals. Reference Range <1:40 Negative 1:40-1:80 Low Antibody Level >1:80 Elevated Antibody Level ASHLEIGH PATTERN Cytoplasmic, Fibrillar (Abnormal) Comments: Staining of cytoplasmic filaments, fibers and/ormicrotubules. This category includes anti-actin, vsgf-dtl-zermer myosin, anti-cytokeratin, anti-vimentin,anti-tropomyosin, anti- actinin, and anti-vinculin.Pattern may be found in mixed connective tissuedisease (MCTD), chronic active hepatitis, cirrhosis,myasthenia gravis, Crohn's disease, primary biliarycholangitis (PBC), long-term hemodialysis, infectiousor inflammatory conditions, psoriasis, ulcerativecolitis, system autoimmune rheumatic diseases (SARD)and in healthy persons. AC-15,16,17: Fibrillar International Consensus on ASHLEIGH Patterns(https://do i.org/10.1515/oiak-8023-4832) ASHLEIGH TITER 1:80 {titer} (Above high threshold) Comments: A low level ASHLEIGH titer may be present in pre-clinicalautoimmune diseases and normal individuals. Reference Range <1:40 Negative 1:40-1:80 Low Antibody Level >1:80 Elevated Antibody Level ASHLEIGH PATTERN Nuclear, Speckled (Abnormal) Comments: Speckled pattern is associated with mixed connectivetissue disease (MCTD), systemic lupus erythematosus(SLE), Sjogren's syndrome, dermatomyositis, and systemic sclerosis/polymyositis abebaa p. AC-2,4,5,29: Speckled International Consensus on ASHLEIGH Patterns(https://doi.org/10.1515/jvbk-8241-7870) 6-Jsx-015694:16 [QLH] C-REACTIVE PROTEIN C-REACTIVE PROTEIN 19.0 mg/L (Above high threshold) Range: <8.0 8-Uti-207276:16 [QLH] T4, FREE T4, FREE 1.4 ng/dl (Normal) Range: 0.8-1.8 6-Vgq-228047:16 [QLH] TSH, 3RD GENERATION Comments: REPORT COMMENT:FASTING:NO TSH 1.51 {MIU/L} (Normal) Range: 0.40-4.50 Plan of Care Name Dates Details Planned Observations Planned Goals not documented Planned Encounters Appointment; AYUSH BOYD M.D. On: 08-Aug-2019 13:30 Appointment; RODRIGO KING M.D. On: 13-Aug-2019 10:00 Appointment; BALAJI DELGADO M.D. On: 14-Aug-2019 15:00 Appointment; CHELSY CRUZ M.D. On: 03-Sep-2019 14:30 Appointment; BALAJI DELGADO M.D. On: 14-Sep-2019 13:20 Appointment; AYUSH BOYD M.D. On: 10-Oct-2019 10:00 Interventions Provided Discussion/Summary* Your labs for autoimmune disease are positive. Please keep your appt with GI in August. I will ask Dr. King to review the labs I ordered. Instructions Name Dates Details Instructions not documented [...] not documented On: 23-Mar-2018 14:30 Appointment; AYUSH OBYD M.D. Encounter Diagnosis: Problem not documented On: 23-Mar-2018 14:30 Appointment; LIZZY MARTIN APRN Encounter Diagnosis: Problem not documented On: 03-Apr-2018 13:00 Appointment; [facility] [place] Encounter Diagnosis: Problem not documented On: 03-May-2018 11:00 Appointment; [facility] [place] Encounter Diagnosis: Problem not documented On: 16-May-2018 13:00 Appointment; BALAJI DELGADO M.D. Encounter Diagnosis: Problem not documented On: 16-May-2018 14:00 Appointment; CLAY MCKEON P.A. Encounter Diagnosis: Problem not documented On: 01-Jun-2018 9:45 Appointment; TAWANNA HERNANDEZ APRN Encounter Diagnosis: Problem not documented On: 08-Jun-2018 13:00 Appointment; TAWANNA HERNANDEZ APRN Encounter Diagnosis: Problem not documented On: 22-Jun-2018 11:00 Appointment; KARYN CROSS M.D. Encounter Diagnosis: Problem not documented On: 26-Jun-2018 10:30 Appointment; TAWANNA HERNANDEZ APRN Encounter Diagnosis: Problem not documented On: 27-Jul-2018 [...] documented On: 30-Jan-2019 15:00 Appointment; TAWANNA HERNANDEZ APRN Encounter Diagnosis: Problem not documented On: 06-Mar-2019 13:15 [facility]; [facility] Encounter Diagnosis: Problem not documented On: 14-Mar-2019 [...] documented On: 12-Apr-2019 11:30 Appointment; TAWANNA HERNANDEZ APRN Encounter Diagnosis: Problem not documented On: 24-Apr-2019 [...]
--- OUTSIDE RECORDS SUMMARY | 2019-08-14 15:40 | XMS REPORT | Summary of Care ---
Author Author Becki Little Organization Unknown Address Unknown Phone Unavailable Care Team Providers Care Mexican Food Maker Name Role Phone OLIVER López, AYUSH Unavailable Unavailable Becki Little Unavailable Unavailable DANNY López, BALAJI Unavailable Unavailable DARYL López, YAKELIN Unavailable Unavailable OLIVER MONTANEZ [place], AYUSH Marr Unavailable Unavailable DARYL MONTANEZ, YAKELIN Unavailable Unavailable ANTHONY MONTANEZ, CHELSY Unavailable Unavailable Cecilia MONTANEZ, Rodrigo Unavailable Unavailable Danny MONTANEZ, Balaji Unavailable Unavailable LINDA FUENTESC, CLAY Unavailable Unavailable DAVID INTEGRITY ANALYST-C, TAWANNA Aparicio Unavailable Unavailable GIA MONTANEZ [place], OTTO Pond Unavailable Unavailable AMERICA MONTANEZ, KARYN Unavailable Unavailable TABITHA MONTANEZ [place], JOCELIN BANKS Unavailable Unavailable Unavailable Unavailable Functional [...] Name Dates Details Fluzone INJ Lot #: [id number] on: 04-Apr-2013 Fluzone INJ Lot #: [id number] on: 08-Feb-2014 Prevnar 13 Intramuscular Suspension Lot #: [id number] on: 22-Nov-2014 Fluzone Quadrivalent 0.5 ML Intramuscular Suspension Lot #: [id number] on: 26-Apr-2016 Pneumococcal polysaccharide vaccine, 23 valent Lot #: [id number] on: 23-Dec-2016 Fluzone Quadrivalent 0.5 ML Intramuscular Suspension Prefilled Syringe Lot #: [id number] on: 23-Mar-2018 Influenza on: 06-Mar-2019 Tdap on: [...] smoker Vital Signs Date Test Result Details 1-Fey-240217:36 BP Systolic 119 mm[Hg] Status: Comments: Location: [...] Problem not documented On: 02-Apr-2019 14:30 Appointment; AUYSH BOYD M.D. Encounter Diagnosis: Problem not documented [...]
--- OUTSIDE RECORDS SUMMARY | 2019-08-14 15:40 | XMS REPORT | Summary of Care ---
Author Author Fatou Weiss M.A. Unknown Address [facility] Phone Unavailable Care Team Providers Care Glue Bone Crusher Name Role Phone OLIVER López, AYUSH Unavailable Unavailable DANNY López, BALAJI Unavailable Unavailable DARYL López, YAKELIN Unavailable Unavailable OLIVER MONTANEZ [place], AYUSH Marr Unavailable Unavailable DARYL MONTANEZ, YAKELIN Unavailable Unavailable ANTHONY MONTANEZ, CHELSY Unavailable Unavailable Cecilia MONTANEZ, Rodrigo Unavailable Unavailable Danny MONTANEZ, Balaji Unavailable Unavailable LINDA FUENTESC, CLAY Unavailable Unavailable DAVID POURER-C, TAWANNA Aparicio Unavailable Unavailable GIA MONTANEZ [place], OTTO Pond Unavailable Unavailable AMERICA MONTANEZ, KARYN Unavailable Unavailable TABITHA MONTANEZ [place], JOCELIN BANKS Unavailable Unavailable Unavailable Unavailable Functional [...] Name Dates Details Fluzone INJ Lot #: [id number] on: 04-Apr-2013 Fluzone INJ Lot #: [id number] on: 08-Feb-2014 Prevnar 13 Intramuscular Suspension Lot #: [id number] on: 22-Nov-2014 Fluzone Quadrivalent 0.5 ML Intramuscular Suspension Lot #: [id number] on: 26-Apr-2016 Pneumococcal polysaccharide vaccine, 23 valent Lot #: [id number] on: 23-Dec-2016 Fluzone Quadrivalent 0.5 ML Intramuscular Suspension Prefilled Syringe Lot #: [id number] on: 23-Mar-2018 Influenza on: 06-Mar-2019 Tdap on: [...] smoker Vital Signs Date Test Result Details 9-Dae-103267:36 BP Systolic 119 mm[Hg] Status: Comments: Location: [...] RODRIGO KING M.D. On: 13-Aug-2019 10:00 Appointment; CHELSY CRUZ M.D. On: 03-Sep-2019 14:30 Appointment; BALAJI DELGADO M.D. On: 14-Sep-2019 13:20 Appointment; AYUSH BOYD M.D. On: 10-Oct-2019 10:00 Interventions Provided Follow-ups/Referrals* Pulmonary Referral; Done: 19 Jul 2019 Instructions Name Dates Details Instructions [...] Problem not documented On: 04-Nov-2017 11:15 Appointment; LAURA LIONEL Encounter Diagnosis: Problem not documented On: 10-Nov-2017 [...]
--- OUTSIDE RECORDS SUMMARY | 2019-08-14 15:40 | XMS REPORT | Summary of Care ---
Author Author Becki Little Organization Unknown Address Unknown Phone Unavailable Care Team Providers Care Framing Carpenter Name Role Phone OLIVER López, AYUSH Unavailable Unavailable Becki Little Unavailable Unavailable DANNY López, BALAJI Unavailable Unavailable DARYL López, YAKELIN Unavailable Unavailable OLIVER MONTANEZ [place], AYUSH Marr Unavailable Unavailable DARYL MONTANEZ, YAKELIN Unavailable Unavailable ANTHONY MONTANEZ, CHELSY Unavailable Unavailable Cecilia MONTANEZ, Rodrigo Unavailable Unavailable Danny MONTANEZ, Balaji Unavailable Unavailable LINDA FUENTESC, CLAY Unavailable Unavailable DAVID TRANSCRIBING MACHINE MECHANIC-C, TAWANNA Aparicio Unavailable Unavailable GIA MONTANEZ [place], OTTO Pond Unavailable Unavailable AMERICA MONTANEZ, KARYN Unavailable Unavailable TABITHA MONTANEZ [place], JOCELIN BANKS Unavailable Unavailable Unavailable Unavailable Functional [...] Breast cancer screening (V76.10, Z12.39) Status: Active Advance directive discussed with patient (V65.49, Z71.89) Status: Active Depression screen (V79.0, Z13.31) Status: Active Encounter for mini-mental status examination Status: Active Risk for falls (V15.88, Z91.81) Status: Active Medicare annual wellness visit, subsequent (V70.0, Z00.00) Status: Active Osteoporosis screening (V82.81, Z13.820) Status: Active Estrogen deficiency (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, E28.39) Status: Active Congenital spinal stenosis of lumbar [...] Diarrhea, unspecified type (787.91, R19.7) Status: Active Asthma (493.90, J45.909) Status: Active Atrial fibrillation (427.31, I48.91) Status: Active Medications Name Dates Details metFORMIN [...] 11-Jul-2019 [QLH] CMP W/EGFR Date: 11-Jul-2019 [Q] ASLHEIGH IFA SCREEN W/REFL TO TITER AND PATTERN, [...] Name Dates Details Fluzone INJ Lot #: [id number] on: 04-Apr-2013 Fluzone INJ Lot #: [id number] on: 08-Feb-2014 Prevnar 13 Intramuscular Suspension Lot #: [id number] on: 22-Nov-2014 Fluzone Quadrivalent 0.5 ML Intramuscular Suspension Lot #: [id number] on: 26-Apr-2016 Pneumococcal polysaccharide vaccine, 23 valent Lot #: [id number] on: 23-Dec-2016 Fluzone Quadrivalent 0.5 ML Intramuscular Suspension Prefilled Syringe Lot #: [id number] on: 23-Mar-2018 Influenza on: 06-Mar-2019 Tdap on: [...] smoker Vital Signs Date Test Result Details 7-Hmz-170349:36 BP Systolic 119 mm[Hg] Status: Comments: Location: [...] Observations Planned Goals not documented Planned Encounters Gastroenterology Referral Appointment; AYUSH BOYD M.D. On: 08-Aug-2019 [...] Problem not documented On: 03-May-2018 11:00 [facility] Encounter Diagnosis: Problem not documented On: [...]
--- OUTSIDE RECORDS SUMMARY | 2019-08-14 15:41 | XMS REPORT | Summary of Care ---
Author Author Miguelito Theodore, Aba Olivares Unknown Address [facility] Phone Unavailable Care Team Providers Care Tool Operator Name Role Phone OLIVER López, AYUSH Unavailable Unavailable DANNY López, BALAJI Unavailable Unavailable Miguelito Theodore, Mariesjuan Unavailable Unavailable DARYL López, SOLAFA Unavailable Unavailable JT López, JOSE C Unavailable Unavailable OLIVER MONTANEZ [place], AYUSH Marr Unavailable Unavailable DARYL MONTANEZ, SOLAFA Unavailable Unavailable ANTHONY MONTANEZ, CHELSY Unavailable Unavailable Cecilia MONTANEZ, Rodrigo Unavailable Unavailable Danny MONTANEZ, Balaji Unavailable Unavailable LINDA KAMARA, CLAY Unavailable Unavailable DAVID SCOTT-C, TAWANNA Aparicio Unavailable Unavailable GIA MONTANEZ [place], OTTO Pond Unavailable Unavailable AMERICA MONTANEZ, MOUSTAFA Unavailable Unavailable TABITHA MONTANEZ [place], JOCELIN BANKS Unavailable Unavailable JT MONTANEZ, JOSE C Unavailable Unavailable Unavailable Unavailable Functional Status Name [...] Status: Active Osteopenia (733.90, M85.80) Status: Active Edema (782.3, R60.9) Status: Active [...] 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, 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) Status: Active Advance directive discussed with patient (V65.49, Z71.89) Status: Active Depression screen (V79.0, Z13.31) Status: Active Encounter for mini-mental status examination Status: Active Risk for falls (V15.88, Z91.81) Status: Active Medicare annual wellness visit, subsequent (V70.0, Z00.00) Status: Active Breast cancer screening (V76.10, Z12.39) [...] Decreased pedal pulses (785.9, R09.89) Status: Active Hyperlipidemia (272.4, E78.5) Status: Active [...] Active Atrial fibrillation (427.31, I48.91) Status: Active Shortness of breath (786.05, R06.02) Status: Active SOB (shortness of breath) on exertion (786.05, R06.02) Status: Active Essential (primary) hypertension (401.9, I10) Status: Active Medications Name Dates Details metFORMIN [...] as directed * Quantity: 1 Refills: 0 DELFIN BRITO M.D.A * Start : 23-Nov-2018 Active 57 GM Tube OneTouch Ultra 2 w/Device Kit USE TO CHECK GLUCOSE ONCE DAILY * Quantity: 1 Refills: 0 AYUSH BOYD M.D. * Start : 11-Dec-2018 Active PatriciaTouch Delica Lancets 33G USE AND DISCARD 1 LANCET DAILY TO MONITOR BLOOD SUGAR * Quantity: 1 Refills: 1 AYUSH BOYD M.D. * Start : 11-Dec-2018 Active 100 Unit Box Trospium Chloride 20 MG Oral Tablet Take 1 tablet by mouth twice a day * Quantity: 60 Refills: 11 YAKELIN BRITO M.D. * Start : 11-Dec-2018 Active Breo Ellipta 100-25 MCG/INH Inhalation Aerosol Powder Breath Activated * Refills: 0 Active Carvedilol 12.5 MG Oral Tablet TAKE 1 TABLET TWICE DAILY WITH MEALS. * Quantity: 60 Refills: 1 JOSE C WATERS M.D. * Start : 26-Jan-2019 Active Vitamin D3 Complete TABS * Refills: 0 Active Budesonide 0.5 MG/2ML Inhalation Suspension * Refills: 0 Active OneTouch Ultra Blue In Vitro Strip test once daily * Quantity: 100 Refills: 0 AYUSH BOYD M.D. * Start : 11-Dec-2018 Active Allergies and Adverse Reactions Name Dates Details codeine (Allergy) Status: Active Morphine Derivatives (Allergy) Status: Active Past Medical History Name Dates Details History of shortness of breath (V13.89, Z87.898) Status: Resolved Procedures Procedure Dates Details [Q] Clostridium difficile Toxin/GDH with reflex to PCR Date: 11-Jul-2019 [Q] CULTURE, STOOL, MARCELINO/SHIG/CAMPY AND SHIGA TOXINS EIA W/RFL E.COLI O157 CULT Date: 11-Jul-2019 [QLH] TROPONIN I Date: 30-Jul-2019 [QLH] B TYPE NATRIURETIC PEPTIDE (BNP) Date: 30-Jul-2019 [Q] CK-MB Date: 30-Jul-2019 History of Back Surgery Completed History of Knee Surgery Completed History of Pacemaker Permanent Placement Completed History of Corneal LASIK Right Completed Immunization Name Dates Details Fluzone INJ Lot #: [id number] on: 04-Apr-2013 Fluzone INJ Lot #: [id number] on: 08-Feb-2014 Prevnar 13 Intramuscular Suspension Lot #: [id number] on: 22-Nov-2014 Fluzone Quadrivalent 0.5 ML Intramuscular Suspension Lot #: [id number] on: 26-Apr-2016 Pneumococcal polysaccharide vaccine, 23 valent Lot #: [id number] on: 23-Dec-2016 Fluzone Quadrivalent 0.5 ML Intramuscular Suspension Prefilled Syringe Lot #: [id number] on: 23-Mar-2018 Influenza on: 06-Mar-2019 Tdap on: [...] Details - Status: Name Dates Details Never smoked tobacco (finding) Vital Signs Date Test Result Details :22 Systolic blood pressure 153 mm[Hg] Status: Comments: Location: LUE; Position: Sitting Diastolic blood pressure 88 mm[Hg] Status: Comments: Location: LUE; Position: Sitting Body height 62 in Status: Weight 230.375 lb Status: Body mass index (BMI) [Ratio] 42.14 kg/m2 Status: Body surface area Derived from formula 2.03 m2 Status: Body temperature 98.9 f Status: Comments: Method: Temporal Heart Rate 127 /min Status: Respiratory rate 20 /min Status: O2 SAT 98 % Status: :36 Systolic blood pressure 119 mm[Hg] Status: Comments: Location: LUE; Position: Sitting Diastolic blood pressure 80 mm[Hg] Status: Comments: Location: LUE; Position: Sitting Body height 62 in Status: Weight 222.4 lb Status: Body mass index (BMI) [Ratio] 40.68 kg/m2 Status: Body surface area Derived from formula 2 m2 Status: Body temperature 96.9 f Status: Comments: Method: Temporal Heart Rate 130 /min Status: Comments: Location: L Radial; Respiratory rate 16 /min Status: Results Date Description Value Details :16 [QLH] CMP W/EGFR GLUCOSE 146 mg/dl (Above high threshold) Range: 65-139 Comments: Non-fasting reference interval UREA NITROGEN (BUN) 30 mg/dl (Above high threshold) Range: 7-25 CREATININE 1.14 mg/dl (Above high threshold) Range: 0.60-0.93 Comments: For patients >49 years of age, the reference limitfor Creatinine is approximately 13% higher for peopleidentified as -Malawian. eGFR NON- 46 {ML/MIN/1.7} (Below low threshold) [...] 10-35 ALT 16 u/l (Normal) Range: 6-29 4-Ofu-671156:16 [QLH] SED RATE BY MODIFIED WESTERGREN SED RATE BY MODIFIED WESTERGREN 11 mm/h (Normal) Range: < OR=30 1-Vmn-401648:16 [Q] ASHLEIGH IFA SCREEN W/REFL TO TITER [...] clinically indicated. For additional information, please refer [email or web address](This link is being provided for informational/educational purposes only.) 3-Vpm-254110:16 [Q] Antinuclear Antibody, Titer and Pattern Comments: [...] filaments, fibers and/ormicrotubules. This category includes anti-actin, npyy-ohm-ixhshp myosin, anti-cytokeratin, anti-vimentin,anti-tropomyosin, anti- actinin, and anti-vinculin.Pattern may be found in mixed connective tissuedisease (MCTD), chronic active hepatitis, cirrhosis,myasthenia gravis, Crohn's disease, primary biliarycholangitis (PBC), long-term hemodialysis, infectiousor inflammatory conditions, psoriasis, ulcerativecolitis, system autoimmune rheumatic diseases (SARD)and in healthy persons. AC-15,16,17: Fibrillar International Consensus on ASHLEIGH Patterns(https://do i.org/10.1515/rnrd-2797-3826) ASHLEIGH TITER 1:80 {titer} (Above high threshold) [...] p. AC-2,4,5,29: Speckled International Consensus on ASHLEIGH Patterns(https://doi.org/10.1515/jlpb-5985-0747) 8-Tjd-930563:16 [QLH] C-REACTIVE PROTEIN C-REACTIVE PROTEIN 19.0 mg/L (Above high threshold) Range: <8.0 0-Ods-407773:16 [QLH] T4, FREE T4, FREE 1.4 ng/dl (Normal) Range: 0.8-1.8 1-Bkp-151322:16 [QLH] TSH, 3RD GENERATION Comments: REPORT COMMENT:FASTING:NO TSH 1.51 {MIU/L} (Normal) Range: 0.40-4.50 Plan of Care Name Dates Details Planned Observations Planned Goals not documented Planned Encounters Appointment; JOSE C WATERS M.D. On: 31-Jul-2019 11:00 Appointment; AYUSH BOYD M.D. On: 08-Aug-2019 13:30 [...] Problem not documented On: 03-Apr-2018 13:00 Appointment; [facility], E[facility] Encounter Diagnosis: Problem not documented On: 03-May-2018 11:00 Appointment; [facility] Encounter Diagnosis: Problem not [...] Diagnosis: Problem not documented On: 11-Jul-2019 12:30 Appointment; JOSE C WATERS M.D. Encounter Diagnosis: Problem not documented On: 30-Jul-2019 10:30
--- OUTSIDE RECORDS SUMMARY | 2019-08-14 15:41 | XMS REPORT | Summary of Care ---
Author Author JT López, JOSE C Olivares Unknown Address Unknown Phone Unavailable Care Team Providers Care Precipitate Washer Name Role Phone OLIVER López, AYUSH Unavailable Unavailable DANNY López, BALAJI Unavailable Unavailable DARYL López, YAKELIN Unavailable Unavailable JT López, JOSE C Unavailable Unavailable OLIVER MONTANEZ [place], AYUSH Marr Unavailable Unavailable DARYL MONTANEZ, YAKELIN Unavailable Unavailable ANTHONY MONTANEZ, CHELSY Unavailable Unavailable Cecilia MONTANEZ, Rodrigo Unavailable Unavailable Danny MONTANEZ, Balaji Unavailable Unavailable LINDA OTTO-C, CLAY Unavailable Unavailable DAVID CLINICAL REGISTERED NURSE-C, TAWANNA Aparicio Unavailable Unavailable GIA MONTANEZ [place], OTTO Pond Unavailable Unavailable AMERICA MONTANEZ, KARYN Unavailable Unavailable TABITHA MONTANEZ [place], JOCELIN BANKS Unavailable Unavailable JT MONTANEZ, JOSE [...] 40-49.9 (morbid obesity) (278.01, E66.01) Status: Active Asthma (493.90, J45.909) Status: Active Diarrhea, unspecified type (787.91, R19.7) Status: Active Shortness of breath (786.05, R06.02) Status: Active Atrial fibrillation (427.31, I48.91) Status: Active SOB (shortness of breath) on [...] as directed * Quantity: 1 Refills: 0 YAKELIN BRITO M.D. * Start : 23-Nov-2018 Active 57 GM [...] day * Quantity: 60 Refills: 11 DARYL López SOLAFA * Start : 11-Dec-2018 Active Breo Ellipta 100-25 MCG/INH Inhalation Aerosol Powder Breath Activated * Refills: 0 Active Carvedilol 12.5 MG Oral Tablet TAKE 1 TABLET TWICE DAILY WITH MEALS. * Quantity: 60 Refills: 1 JOSE C WATERS M.D. * Start : 26-Jan-2019 Active Vitamin D3 Complete TABS * Refills: 0 Active Budesonide 0.5 MG/2ML Inhalation Suspension * Refills: 0 Active Allergies and Adverse [...] Name Dates Details Fluzone INJ Lot #: [id number] on: 04-Apr-2013 Fluzone INJ Lot #: [id number] on: 08-Feb-2014 Prevnar 13 Intramuscular Suspension Lot #: [id number] on: 22-Nov-2014 Fluzone Quadrivalent 0.5 ML Intramuscular Suspension Lot #: [id number] on: 26-Apr-2016 Pneumococcal polysaccharide vaccine, 23 valent Lot #: [id number] on: 23-Dec-2016 Fluzone Quadrivalent 0.5 ML Intramuscular Suspension Prefilled Syringe Lot #: [id number] on: 23-Mar-2018 Influenza on: 06-Mar-2019 Tdap on: [...] is approximately 13% higher for peopleidentified as -Northern Irish. eGFR NON- 46 {ML/MIN/1.7} (Below low threshold) [...] 10-35 ALT 16 u/l (Normal) Range: 6-29 4-Sqg-288075:16 [QLH] SED RATE BY MODIFIED WESTERGREN SED [...] clinically indicated. For additional information, please refer [email or web address](This link is being provided for informational/educational purposes only.) 8-Amc-469221:16 [Q] Antinuclear Antibody, Titer and Pattern Comments: [...] filaments, fibers and/ormicrotubules. This category includes anti-actin, ffiu-aif-rotfwa myosin, anti-cytokeratin, anti-vimentin,anti-tropomyosin, anti- actinin, and anti-vinculin.Pattern may be found in mixed connective tissuedisease (MCTD), chronic active hepatitis, cirrhosis,myasthenia gravis, Crohn's disease, primary biliarycholangitis (PBC), long-term hemodialysis, infectiousor inflammatory conditions, psoriasis, ulcerativecolitis, system autoimmune rheumatic diseases (SARD)and in healthy persons. AC-15,16,17: Fibrillar International Consensus on ASHLEIGH Patterns(https://do i.org/10.1515/wmqe-8496-4291) ASHLEIGH TITER 1:80 {titer} (Above high threshold) Comments: A low level ASHLEIGH titer may be present in pre-clinicalautoimmune diseases and normal individuals. Reference Range <1:40 Negative 1:40-1:80 Low Antibody Level >1:80 Elevated Antibody Level ASHLEIGH PATTERN Nuclear, Speckled (Abnormal) Comments: Speckled pattern is associated with mixed connectivetissue disease (MCTD), systemic lupus erythematosus(SLE), Sjogren's syndrome, dermatomyositis, and systemic sclerosis/polymyositis overla p. AC-2,4,5,29: Speckled International Consensus on ASHLEIGH Patterns(https://doi.org/10.1515/uklk-7211-5258) 4-Zbe-315304:16 [QL] C-REACTIVE PROTEIN C-REACTIVE PROTEIN 19.0 mg/L (Above high threshold) Range: <8.0 0-Wha-270752:16 [QL] T4, FREE T4, FREE 1.4 ng/dl (Normal) Range: 0.8-1.8 1-Bgk-176113:16 [QL] TSH, 3RD GENERATION Comments: REPORT COMMENT:FASTING:NO TSH [...] BOYD M.D. On: 10-Oct-2019 10:00 Interventions Provided Medication Changes* Carvedilol 12.5 MG Oral Tablet - Renew Labs/Procedures/Imaging* [Q] CK-MB; To Be Done: 30 Jul 2019 * [QLH] B TYPE NATRIURETIC PEPTIDE (BNP); To Be Done: 30 Jul 2019 * [QLH] TROPONIN I; To Be Done: 30 Jul 2019 Plan* 1. Shortness of breath, patient was tachycardic. May be 2/2 to uncontrolled rate. Patient to continue budesonide twice daily. May use levalbuterol as needed for wheezing or if sob continues. Discussed this medication may increase HR. * 2. Afib, rate uncontrolled, patient to go home and check prescriptions. Rx for carvedilol sent. Will have patient follow up cristofer for HR recheck. * 3. Hypertension, BP elevated on initial reading. Continue current medications. * - Patient advised to eat a diet that emphasizes fruits, vegetables and whole grains with limiting red meat, sweets and salt (<2400mg/day). Educated on reading labels on prepackaged food * - Discussed increasing physical activity by exercising at least 150 mins per week as tolerated * - Alcohol should be limited to one per day for women. * - Patient to check blood pressure at home with a goal of <130/80 and log reading for review on next visit. If blood pressure persistently >140/90 or < 100/50, advised to RTC or if symptomatic go to ER for immediate care. Instructions Name Dates Details Instructions not documented [...] Problem not documented On: 06-Mar-2019 13:15 Appointment; PALOMO RODRIGUEZ Encounter Diagnosis: Problem not documented On: 14-Mar-2019 [...]
--- OUTSIDE RECORDS SUMMARY | 2019-08-14 15:41 | XMS REPORT | Summary of Care ---
Author Author Shabnam Theodore, Arleth Organization Unknown Address Unknown Phone Unavailable Care Team Providers Care Dental Internship Name Role Phone OLIVER López, AYUSH Unavailable Unavailable DANNY López, BALAJI Unavailable Unavailable Shabnam Theodore, Arleth Unavailable Unavailable DARYL López, SOLAFA Unavailable Unavailable JT López, JOSE C Unavailable Unavailable OLIVER MONTANEZ [place], AYUSH Marr Unavailable Unavailable DARYL MONTANEZ, SOLAFA Unavailable Unavailable ANTHONY MONTANEZ, CHELSY Unavailable Unavailable Cecilia MONTANEZ, Rodrigo Unavailable Unavailable Danny MONTANEZ, Balaji Unavailable Unavailable LINDA KAMARA, CLAY Unavailable Unavailable DAVID SCOTT-C, TAWANNA Aparicio Unavailable Unavailable GIA MONTANEZ [place], OTTO Pond Unavailable Unavailable AMERICA MONTANEZ, MOUSTAFA Unavailable Unavailable TABITHA MONTANEZ [place], JOCELIN BANKS Unavailable Unavailable JT MONTANEZ, JOSE [...] M.D. * Start : 11-Dec-2018 Active OneTouch Delica [...] Name Dates Details Fluzone INJ Lot #: [id number] on: 04-Apr-2013 Fluzone INJ Lot #: [id number] on: 08-Feb-2014 Prevnar 13 Intramuscular Suspension Lot #: [id number] on: 22-Nov-2014 Fluzone Quadrivalent 0.5 ML Intramuscular Suspension Lot #: [id number] on: 26-Apr-2016 Pneumococcal polysaccharide vaccine, 23 valent Lot #: [id number] on: 23-Dec-2016 Fluzone Quadrivalent 0.5 ML Intramuscular Suspension Prefilled Syringe Lot #: [id number] on: 23-Mar-2018 Influenza on: 06-Mar-2019 Tdap on: [...] is approximately 13% higher for peopleidentified as -Burkinan. eGFR NON- 46 {ML/MIN/1.7} (Below low threshold) [...] 10-35 ALT 16 u/l (Normal) Range: 6-29 1-Jtc-520510:16 [QLH] SED RATE BY MODIFIED WESTERGREN SED [...] clinically indicated. For additional information, please refer tohttp://[email or web address]/faq/ADS685(This link is being provided for informational/educational purposes [...] filaments, fibers and/ormicrotubules. This category includes anti-actin, uqcz-xlb-ngaeml myosin, anti-cytokeratin, anti-vimentin,anti-tropomyosin, anti- actinin, and anti-vinculin.Pattern may be found in mixed connective tissuedisease (MCTD), chronic active hepatitis, cirrhosis,myasthenia gravis, Crohn's disease, primary biliarycholangitis (PBC), long-term hemodialysis, infectiousor inflammatory conditions, psoriasis, ulcerativecolitis, system autoimmune rheumatic diseases (SARD)and in healthy persons. AC-15,16,17: Fibrillar International Consensus on ASHLEIGH Patterns(https://do i.org/10.1515/oonl-9988-9297) ASHLEIGH TITER 1:80 {titer} (Above high threshold) [...] p. AC-2,4,5,29: Speckled International Consensus on ASHLEIGH Patterns(https://doi.org/10.1515/jbpi-2511-8409) 2-Ozc-864668:16 [QLH] C-REACTIVE PROTEIN C-REACTIVE PROTEIN 19.0 mg/L (Above high threshold) Range: <8.0 0-Zgf-317572:16 [QLH] T4, FREE T4, FREE 1.4 ng/dl (Normal) Range: 0.8-1.8 7-Gtn-542188:16 [QL] TSH, 3RD GENERATION Comments: REPORT COMMENT:FASTING:NO [...] M.D. On: 10-Oct-2019 10:00 Interventions Provided Discussion/Summary* Guideline Used: * Other: STAT Lab results * [facility] reporting a STAT Labs--Troponin=0.02 & Natriuretic peptide=high [address] Waters. Triage nurse contacted Dr. Waters @ [phone] and reported the above results. * Chart Reviewed. * Recommended Disposition: Caller instructed to call back within 24 - 48 hours if caller has not received a call back from clinical staff. * Intended Caller Action: * Other: Speak to staff member * Additional Information: * Task sent to BY -clinical team * Patient verbalizes understanding and had no further questions at this time. Instructions Name Dates Details Instructions not documented [...] not documented On: 13-Feb-2018 10:15 Appointment; BALAJI DELAGDO M.D. Encounter Diagnosis: Problem not documented On: [...]
--- OUTSIDE RECORDS SUMMARY | 2019-08-14 15:41 | XMS REPORT | Summary of Care ---
Author Author Tima Theodore, Angelica Organization Unknown Address Unknown Phone Unavailable Care Team Providers Care Interventional Nurse Name Role Phone OLIVER López, AYUSH Unavailable Unavailable DANNY López, BALAJI Unavailable Unavailable DARLY López, SOLAFA Unavailable Unavailable Tima Theodore, Angelica Unavailable Unavailable JT López, JOSE C Unavailable Unavailable OLIVER MONTANEZ [place], AYUSH Marr Unavailable Unavailable DARYL MONTANEZ, SOLAFJimena Unavailable Unavailable ANTHONY MONTANEZ, CHELSY Unavailable Unavailable Cecilia MONTANEZ, Rodrigo Unavailable Unavailable Danny MONTANEZ, Balaji Unavailable Unavailable LINDA OTTO-C, CLAY Unavailable Unavailable DAVID SCOTT-C, TAWANNA Aparicio Unavailable Unavailable GIA MONTNAEZ [place], OTTO Pond Unavailable Unavailable AMERICA MONTANEZ, MOUSTAFA Unavailable Unavailable TABITHA MONTANEZ [place], JOCELIN BANKS Unavailable Unavailable JT MONTANEZ, JOSE [...] daily * Quantity: 100 Refills: 0 AYUSH OBYD M.D. * Start [...] Name Dates Details Fluzone INJ Lot #: [id number] on: 04-Apr-2013 Fluzone INJ Lot #: [id number] on: 08-Feb-2014 Prevnar 13 Intramuscular Suspension Lot #: [id number] on: 22-Nov-2014 Fluzone Quadrivalent 0.5 ML Intramuscular Suspension Lot #: [id number] on: 26-Apr-2016 Pneumococcal polysaccharide vaccine, 23 valent Lot #: [id number] on: 23-Dec-2016 Fluzone Quadrivalent 0.5 ML Intramuscular Suspension Prefilled Syringe Lot #: [id number] on: 23-Mar-2018 Influenza on: 06-Mar-2019 Tdap on: [...] is approximately 13% higher for peopleidentified as -Lao. eGFR NON- 46 {ML/MIN/1.7} (Below low threshold) [...] 10-35 ALT 16 u/l (Normal) Range: 6-29 6-Kiu-064576:16 [QLH] SED RATE BY MODIFIED WESTERGREN SED [...] clinically indicated. For additional information, please refer [email or web address](This link is being provided for informational/educational purposes only.) 6-Onk-076957:16 [Q] Antinuclear Antibody, Titer and Pattern Comments: [...] filaments, fibers and/ormicrotubules. This category includes anti-actin, chwn-tzs-ohojov myosin, anti-cytokeratin, anti-vimentin,anti-tropomyosin, anti- actinin, and anti-vinculin.Pattern may be found in mixed connective tissuedisease (MCTD), chronic active hepatitis, cirrhosis,myasthenia gravis, Crohn's disease, primary biliarycholangitis (PBC), long-term hemodialysis, infectiousor inflammatory conditions, psoriasis, ulcerativecolitis, system autoimmune rheumatic diseases (SARD)and in healthy persons. AC-15,16,17: Fibrillar International Consensus on ASHLEIGH Patterns(https://do i.org/10.1515/xija-2465-8648) ASHLEIGH TITER 1:80 {titer} (Above high threshold) [...] p. AC-2,4,5,29: Speckled International Consensus on ASHLEIGH Patterns(https://doi.org/10.1515/okmt-1376-0880) 8-Zua-117147:16 [QLH] C-REACTIVE PROTEIN C-REACTIVE PROTEIN 19.0 mg/L (Above high threshold) Range: <8.0 4-Mxg-201487:16 [QLH] T4, FREE T4, FREE 1.4 ng/dl (Normal) Range: 0.8-1.8 6-Ooi-934517:16 [QLH] TSH, 3RD GENERATION Comments: REPORT COMMENT:FASTING:NO TSH 1.51 {MIU/L} (Normal) Range: 0.40-4.50 Plan of Care Name Dates Details Planned Observations Planned Goals not documented Planned Encounters Appointment; AYUSH BOYD M.D. On: 08-Aug-2019 13:30 Appointment; BALAJI DELGADO M.D. On: 14-Aug-2019 15:00 Appointment; CHELSY CRUZ M.D. On: 03-Sep-2019 14:30 Appointment; BALAJI DELGADO M.D. On: 14-Sep-2019 13:20 Appointment; AYUSH BOYD M.D. On: 10-Oct-2019 10:00 Interventions Provided Discussion/Summary* Guideline Used: * Clinic: [facility] (formerly [facility]3] * PT requesting call back regarding appointment request for today. * PH: [phone] * Intended Caller Action: * Other: Speak with clinic staff * Additional Information: * Task sent to Leonie Garrido Instructions Name Dates Details Instructions not documented [...] Problem not documented On: 03-May-2018 11:00 Appointment; [facility] Encounter Diagnosis: Problem not documented [...] Diagnosis: Problem not documented On: 30-Jul-2019 10:30 Appointment; JOSE C WATERS M.D. Encounter Diagnosis: Problem not documented On: 31-Jul-2019 11:00
--- OUTSIDE RECORDS SUMMARY | 2019-08-14 15:42 | XMS REPORT | Summary of Care ---
Author Author Janis Varma, Evelyn Olivares Unknown Address Unknown Phone Unavailable Care Team Providers Care Practical Nursing Faculty Name Role Phone OLIVER López, AYUSH Unavailable Unavailable DANNY López, BALAJI Unavailable Unavailable DARYL López, SOLBARBARA Unavailable Unavailable JT López, JOSE C Unavailable Unavailable OLIVER MONTANEZ MS, AYUSH Marr Unavailable Unavailable DARYL MONTANEZ, SOLBARBARA Unavailable Unavailable ANTHONY MONTANEZ, CHELSY Unavailable Unavailable Cecilia MONTANEZ, Rodrigo Unavailable Unavailable Danny MONTANEZ, Balaji Unavailable Unavailable LINDA OTTO-C, CLAY Unavailable Unavailable DAVID COLLEGE PHYSICS INSTRUCTOR-C, TAWANNA Aparicio Unavailable Unavailable GIA MONTANEZ [place], OTTO Pond Unavailable Unavailable AMERICA MONTANEZ, KARYN Unavailable Unavailable TABITHA MONTANEZ MS, JOCELIN BANKS Unavailable Unavailable JT MONTANEZ, JOSE [...] * Quantity: 60 Refills: 11 DARYL López SOLAFJimena * Start : 11-Dec-2018 Active Breo Ellipta 100-25 MCG/INH Inhalation Aerosol Powder Breath Activated * Refills: 0 M.A. Active Carvedilol 12.5 MG Oral Tablet TAKE 1 TABLET TWICE DAILY WITH MEALS. * Quantity: 60 Refills: 1 JOSE C WATERS M.D. * Start : 26-Jan-2019 Active Vitamin D3 Complete TABS * Refills: 0 M.A. Active Budesonide 0.5 MG/2ML Inhalation Suspension * Refills: 0 M.A. Active Allergies and [...] Name Dates Details Fluzone INJ Lot #: [id number] on: 04-Apr-2013 Fluzone INJ Lot #: [id number] on: 08-Feb-2014 Prevnar 13 Intramuscular Suspension Lot #: [id number] on: 22-Nov-2014 Fluzone Quadrivalent 0.5 ML Intramuscular Suspension Lot #: [id number] on: 26-Apr-2016 Pneumococcal polysaccharide vaccine, 23 valent Lot #: [id number] on: 23-Dec-2016 Fluzone Quadrivalent 0.5 ML Intramuscular Suspension Prefilled Syringe Lot #: [id number] on: 23-Mar-2018 Influenza on: 06-Mar-2019 Tdap on: [...] is approximately 13% higher for peopleidentified as -[place]. eGFR NON- 46 {ML/MIN/1.7} (Below low threshold) [...] 10-35 ALT 16 u/l (Normal) Range: 6-29 8-Pgh-282975:16 [QLH] SED RATE BY MODIFIED WESTERGREN SED RATE BY MODIFIED WESTERGREN 11 mm/h (Normal) Range: < OR=30 0-Twc-983059:16 [Q] ASHLEIGH IFA SCREEN W/REFL TO TITER [...] clinically indicated. For additional information, please refer tohttp://[email or web address]/faq/NAD997(This link is being provided for informational/educational purposes [...] filaments, fibers and/ormicrotubules. This category includes anti-actin, lbga-gom-ntuxhe myosin, anti-cytokeratin, anti-vimentin,anti-tropomyosin, anti- actinin, and anti-vinculin.Pattern may be found in mixed connective tissuedisease (MCTD), chronic active hepatitis, cirrhosis,myasthenia gravis, Crohn's disease, primary biliarycholangitis (PBC), long-term hemodialysis, infectiousor inflammatory conditions, psoriasis, ulcerativecolitis, system autoimmune rheumatic diseases (SARD)and in healthy persons. AC-15,16,17: Fibrillar International Consensus on ASHLEIGH Patterns(https://do i.org/10.1515/evpi-9920-9448) ASHLEIGH TITER 1:80 {titer} (Above high threshold) [...] p. AC-2,4,5,29: Speckled International Consensus on ASHLEIGH Patterns(https://doi.org/10.1515/yjdn-7888-9297) :16 [QLH] C-REACTIVE PROTEIN C-REACTIVE PROTEIN 19.0 mg/L (Above high threshold) Range: <8.0 :16 [QLH] T4, FREE T4, FREE 1.4 ng/dl (Normal) Range: 0.8-1.8 :16 [QL] TSH, 3RD GENERATION Comments: REPORT COMMENT:FASTING:NO TSH 1.51 {MIU/L} (Normal) Range: 0.40-4.50 :00 [Q] CK-MB CK TNP Comments: Test Not Performed. Incorrect test ordered. Pleasecontact Client Services forfurther assistance in orderingthe appropriate test code.TEST CODE IS FOR AWA STATS ONLY : [QLH] B TYPE NATRIURETIC PEPTIDE (BNP) B TYPE NATRIURETIC PEPTIDE (BNP) 342 pg/ml (Above high threshold) Range: <100 Comments: BNP levels increase with age in the generalpopulation with the highest values seen inindividuals greater than 75 years of age.Reference: J. Am. Justin. Cardiol. 2002; 40:976-982. :00 [QLH] TROPONIN I TROPONIN I 0.02 ng/ml (Normal) Range: < OR=0.05 Comments: In accord with published recommendations, serialtesting of troponin I at intervals of 2 to 4 hoursfor up to 12 to 24 hours is suggested in order tocorroborate a single troponin I result. An elevatedtroponin alone is not sufficient to make thediagnosis of [place]. For additional information, please refer to http://education.Fitzeal.Oceanlinx/faq/JLA696 (This link is being provided for informational/educational purposes only.) :00 [Q] TEST IN QUESTION- MISC QUESTION Comments: REPORT COMMENT:FASTING:YES QUESTION/PROBLEM: Comments: THERE IS A QUESTION REGARDING THE FOLLOWING SPECIMENSUBMITTED AND/OR THE TEST REQUESTED. QUESTION: VERIFY TEST [id number] . Comments: To prevent further delays in testing, please completeinformation above and fax to [phone] to resolvethis order. Plan of Care Name Dates Details Planned [...] Problem not documented On: 06-Mar-2019 13:15 [facility] En[facility] Diagnosis: Problem not documented On: 14-Mar-2019 [...]
--- OUTSIDE RECORDS SUMMARY | 2019-08-14 15:42 | XMS REPORT | Summary of Care ---
Author Author Cate Varma, Keyon Olivares Unknown Address Unknown Phone Unavailable Care Team Providers Care Md [facility] Name Role Phone OLIVER López, AYUSH Unavailable Unavailable DANNY López, BALAJI Unavailable Unavailable Cate Varma, Keyon Unavailable Unavailable DARYL López, SOLXAVIERA Unavailable Unavailable JT López, JOSE C Unavailable Unavailable OLIVER MONTANEZ [place], AYUSH Marr Unavailable Unavailable DARYL MONTANEZ, SOLAFA Unavailable Unavailable ANTHONY MONTANEZ, CHELSY Unavailable Unavailable Cecilia MONTANEZ, Rodrigo Unavailable Unavailable Danny MONTANEZ, Balaji Unavailable Unavailable LINDA KAMARA, CLAY Unavailable Unavailable DAVID SCOTT-C, TAWANNA Aparicio Unavailable Unavailable GIA MONTANEZ [place], OTTO Pond Unavailable Unavailable AMERICA MONTANEZ, MOUSTAFA Unavailable Unavailable TABITHA MONTANEZ [place], JOCELIN BANKS [...] Name Dates Details Fluzone INJ Lot #: [id number] on: 04-Apr-2013 Fluzone INJ Lot #: [id number] on: 08-Feb-2014 Prevnar 13 Intramuscular Suspension Lot #: [id number] on: 22-Nov-2014 Fluzone Quadrivalent 0.5 ML Intramuscular Suspension Lot #: [id number] on: 26-Apr-2016 Pneumococcal polysaccharide vaccine, 23 valent Lot #: [id number] on: 23-Dec-2016 Fluzone Quadrivalent 0.5 ML Intramuscular Suspension Prefilled Syringe Lot #: [id number] on: 23-Mar-2018 Influenza on: 06-Mar-2019 Tdap on: [...] is approximately 13% higher for peopleidentified as -Citizen Of [place]. eGFR NON- 46 {ML/MIN/1.7} (Below low threshold) [...] 10-35 ALT 16 u/l (Normal) Range: 6-29 2-Kbo-359068:16 [QLH] SED RATE BY MODIFIED WESTERGREN SED RATE BY MODIFIED WESTERGREN 11 mm/h (Normal) Range: < OR=30 2-Thl-189170:16 [Q] ASHLEIGH IFA SCREEN W/REFL TO TITER [...] clinically indicated. For additional information, please refer [email or web address]/faq/ATR116(This link is being provided for informational/educational purposes [...] filaments, fibers and/ormicrotubules. This category includes anti-actin, xrjf-zfn-udjmhq myosin, anti-cytokeratin, anti-vimentin,anti-tropomyosin, anti- actinin, and anti-vinculin.Pattern may be found in mixed connective tissuedisease (MCTD), chronic active hepatitis, cirrhosis,myasthenia gravis, Crohn's disease, primary biliarycholangitis (PBC), long-term hemodialysis, infectiousor inflammatory conditions, psoriasis, ulcerativecolitis, system autoimmune rheumatic diseases (SARD)and in healthy persons. AC-15,16,17: Fibrillar International Consensus on ASHLEIGH Patterns(https://do i.org/10.1515/hrgu-3220-5960) ASHLEIGH TITER 1:80 {titer} (Above high threshold) [...] p. AC-2,4,5,29: Speckled International Consensus on ASHLEIGH Patterns(https://doi.org/10.1515/qvub-3891-1078) :16 [QLH] C-REACTIVE PROTEIN C-REACTIVE PROTEIN 19.0 mg/L (Above high threshold) Range: <8.0 9-Gll-552438:16 [QL] T4, FREE T4, FREE 1.4 ng/dl (Normal) Range: 0.8-1.8 4-Jij-743442:16 [[facility]] TSH, 3RD GENERATION Comments: REPORT COMMENT:FASTING:NO TSH [...] Problem not documented On: 03-Apr-2018 13:00 Appointment; [facility] [place] Encounter Diagnosis: Problem not documented On: 03-May-2018 11:00 [facility] Encounter Diagnosis: Problem not documented [...]
--- OUTSIDE RECORDS SUMMARY | 2019-08-14 15:42 | XMS REPORT | Summary of Care ---
Author Author JT López, JOSE C Olivares Unknown Address Unknown Phone Unavailable Care Team Providers Care Aviation Electrician Name Role Phone OLIVER López, AYUSH Unavailable Unavailable DANNY López, BALAJI Unavailable Unavailable DARYL López, YAKELIN Unavailable Unavailable JT López, JOSE C Unavailable Unavailable OLIVER MONTANEZ [place], AYUSH Marr Unavailable Unavailable DARYL MONTANEZ, YAKELIN Unavailable Unavailable ANTHONY MONTANEZ, CHELSY Unavailable Unavailable Cecilia MONTANEZ, Rodrigo Unavailable Unavailable Danny MONTANEZ, Balaji Unavailable Unavailable LINDA OTTO-C, CLAY Unavailable Unavailable DAVID USED CAR LOT ATTENDANT-C, TAWANNA Aparicio Unavailable Unavailable GIA MONTANEZ [place], OTTO Pond Unavailable Unavailable AMERICA MNOTANEZ, KARYN Unavailable Unavailable TABITHA MONTANEZ [place], JOCELIN BANKS Unavailable Unavailable JT MONTANEZ, JOSE [...] Name Dates Details Fluzone INJ Lot #: [id number] on: 04-Apr-2013 Fluzone INJ Lot #: [id number] on: 08-Feb-2014 Prevnar 13 Intramuscular Suspension Lot #: [id number] on: 22-Nov-2014 Fluzone Quadrivalent 0.5 ML Intramuscular Suspension Lot #: [id number] on: 26-Apr-2016 Pneumococcal polysaccharide vaccine, 23 valent Lot #: [id number] on: 23-Dec-2016 Fluzone Quadrivalent 0.5 ML Intramuscular Suspension Prefilled Syringe Lot #: [id number] on: 23-Mar-2018 Influenza on: 06-Mar-2019 Tdap on: [...] 10-35 ALT 16 u/l (Normal) Range: 6-29 5-Avp-293109:16 [QLH] SED RATE BY MODIFIED WESTERGREN SED RATE BY MODIFIED WESTERGREN 11 mm/h (Normal) Range: < OR=30 9-Hsh-568462:16 [Q] ASHLEIGH IFA SCREEN W/REFL TO TITER [...] clinically indicated. For additional information, please refer [email or web address]/faq/JTO104(This link is being provided for informational/educational purposes [...] filaments, fibers and/ormicrotubules. This category includes anti-actin, zglq-jiv-umuamw myosin, anti-cytokeratin, anti-vimentin,anti-tropomyosin, anti- actinin, and anti-vinculin.Pattern may be found in mixed connective tissuedisease (MCTD), chronic active hepatitis, cirrhosis,myasthenia gravis, Crohn's disease, primary biliarycholangitis (PBC), long-term hemodialysis, infectiousor inflammatory conditions, psoriasis, ulcerativecolitis, system autoimmune rheumatic diseases (SARD)and in healthy persons. AC-15,16,17: Fibrillar International Consensus on ASHLEIGH Patterns(https://do i.org/10.1515/darv-0472-1861) ASHLEIGH TITER 1:80 {titer} (Above high threshold) [...] p. AC-2,4,5,29: Speckled International Consensus on ASHLEIGH Patterns(https://doi.org/10.1515/dzmz-8187-0314) :16 [QLH] C-REACTIVE PROTEIN C-REACTIVE PROTEIN 19.0 [...] is not sufficient to make thediagnosis of [place]. For additional information, please refer to http://education.[employer].Pressflip/faq/FQC050 (This link is being provided for informational/educational purposes only.) :00 [Q] TEST IN QUESTION- MISC QUESTION Comments: REPORT COMMENT:FASTING:YES QUESTION/PROBLEM: Comments: THERE IS A QUESTION REGARDING THE FOLLOWING SPECIMENSUBMITTED AND/OR THE TEST REQUESTED. QUESTION: VERIFY TEST [id number] . Comments: To prevent further delays in testing, please completeinformation above and fax to [phone] to resolvethis order. Plan of Care Name [...] not documented On: 16-May-2018 13:00 Appointment; BALAJI DEGLADO M.D. Encounter Diagnosis: Problem not documented On: [...]
--- OUTSIDE RECORDS SUMMARY | 2019-08-14 15:43 | XMS REPORT | Summary of Care ---
Author Author Aba Farley R.N. Unknown Address [facility] Phone Unavailable Care Team Providers Care Gang Knife Fish Chopper Name Role Phone OLIVER López, AYUSH Unavailable Unavailable DANNY López, BALAJI Unavailable Unavailable DARYL López, YAKELIN Unavailable Unavailable JT López, JOSE C Unavailable Unavailable OLIVER MONTANEZ [place], AYUSH Marr Unavailable Unavailable DARYL MONTANEZ, YAKELIN Unavailable Unavailable ANTHONY MONTANEZ, CHELSY Unavailable Unavailable Cecilia MONTANEZ, Rodrigo Unavailable Unavailable Danny MONTANEZ, Balaji Unavailable Unavailable LINDA FUENTESC, CLAY Unavailable Unavailable DAVID QUALITY IMPROVEMENT MANAGER-C, TAWANNA Aparicio Unavailable Unavailable GIA MONTANEZ [place], OTTO Pond Unavailable Unavailable AMERICA MONTANEZ, KARYN Unavailable Unavailable TABITHA MONTANEZ [place], JOCELIN BANKS Unavailable Unavailable JT MONTANEZ, JOSE [...] Name Dates Details Fluzone INJ Lot #: [id number] on: 04-Apr-2013 Fluzone INJ Lot #: [id number] on: 08-Feb-2014 Prevnar 13 Intramuscular Suspension Lot #: [id number] on: 22-Nov-2014 Fluzone Quadrivalent 0.5 ML Intramuscular Suspension Lot #: [id number] on: 26-Apr-2016 Pneumococcal polysaccharide vaccine, 23 valent Lot #: [id number] on: 23-Dec-2016 Fluzone Quadrivalent 0.5 ML Intramuscular Suspension Prefilled Syringe Lot #: [id number] on: 23-Mar-2018 Influenza on: 06-Mar-2019 Tdap on: [...] is approximately 13% higher for peopleidentified as -[place]i. eGFR NON- 46 {ML/MIN/1.7} (Below low threshold) [...] 10-35 ALT 16 u/l (Normal) Range: 6-29 3-Kzd-124412:16 [QLH] SED RATE BY MODIFIED WESTERGREN SED RATE BY MODIFIED WESTERGREN 11 mm/h (Normal) Range: < OR=30 5-Uqo-082554:16 [Q] ASHLEIGH IFA SCREEN W/REFL TO TITER [...] clinically indicated. For additional information, please refer [email or web address]/faq/RHN998(This link is being provided for informational/educational purposes [...] filaments, fibers and/ormicrotubules. This category includes anti-actin, eapt-psx-dxvstm myosin, anti-cytokeratin, anti-vimentin,anti-tropomyosin, anti- actinin, and anti-vinculin.Pattern may be found in mixed connective tissuedisease (MCTD), chronic active hepatitis, cirrhosis,myasthenia gravis, Crohn's disease, primary biliarycholangitis (PBC), long-term hemodialysis, infectiousor inflammatory conditions, psoriasis, ulcerativecolitis, system autoimmune rheumatic diseases (SARD)and in healthy persons. AC-15,16,17: Fibrillar International Consensus on ASHLEIGH Patterns(https://do i.org/10.1515/shgy-3987-3328) ASHLEIGH TITER 1:80 {titer} (Above high threshold) [...] p. AC-2,4,5,29: Speckled International Consensus on ASHLEIGH Patterns(https://doi.org/10.1515/eebh-3733-8406) :16 [QLH] C-REACTIVE PROTEIN C-REACTIVE PROTEIN 19.0 mg/L (Above high threshold) Range: <8.0 9-Mrw-981735:16 [QLH] T4, FREE T4, FREE 1.4 ng/dl [...] is not sufficient to make thediagnosis of [place]. For additional information, please refer to http://education.[email or web address].cc/faq/IKH608 (This link is being provided for informational/educational purposes only.) :00 [Q] TEST IN QUESTION- MISC QUESTION Comments: REPORT COMMENT:FASTING:YES QUESTION/PROBLEM: Comments: THERE IS A QUESTION REGARDING THE FOLLOWING SPECIMENSUBMITTED AND/OR THE TEST REQUESTED. QUESTION: VERIFY TEST [id number] . Comments: To prevent further delays in testing, please completeinformation above and fax to [phone] to resolvethis order. Plan of Care Name [...]
--- OUTSIDE RECORDS SUMMARY | 2019-08-14 15:43 | XMS REPORT | Summary of Care ---
Author Author Shivani Medina M.A. Unknown Address [facility] Phone Unavailable Care Team Providers Care Graphic Design Assistant Name Role Phone OLIVER López, AYUSH Unavailable Unavailable DANNY López, BALAJI Unavailable Unavailable DARYL López, YAKELIN Unavailable Unavailable JT López, JOSE C Unavailable Unavailable OLIVER MONTANEZ [place], AYUSH Marr Unavailable Unavailable DARYL MONTANEZ, YAKELIN Unavailable Unavailable ANTHONY MONTANEZ, CHELSY Unavailable Unavailable Cecilia MONTANEZ, Rodrigo Unavailable Unavailable Danny MONTANEZ, Balaji Unavailable Unavailable LINDA FUENTESC, CLAY Unavailable Unavailable DAVID PUNCH PRESS OPERATOR HELPER-C, TAWANNA Aparicio Unavailable Unavailable GIA MONTANEZ [place], OTTO Pond Unavailable Unavailable AMERICA MONTANEZ, KARYN Unavailable Unavailable TABITHA MONTANEZ [place], JOCELIN BANKS Unavailable Unavailable JT MONTANEZ, JOSE [...] DAILY Quantity: 90 AYUSH BOYD M.D. Active Eliquis 2.5 MG Oral Tablet Take 1 tablet by mouth twice a day * Quantity: 60 Refills: 6 BALAJI DELGADO M.D. * Start : 11-Sep-2018 Active Furosemide 20 MG Oral Tablet TAKE 1 TABLET BY MOUTH EVERY DAY NEEDED * Quantity: 90 Refills: 2 AYUSH BOYD M.D. * Start : 23-Oct-2015 Active Montelukast Sodium 10 MG Oral Tablet TAKE [...] 08-Jun-2018 Active 25 x 3 ML Box Levalbuterol Tartrate 45 MCG/ACT Inhalation Aerosol INHALE 1 TO 2 PUFFS EVERY 4 TO 6 HOURS NEEDED. * Quantity: 1 Refills: 3 AYUSH BOYD M.D. * Start : 12-Nov-2016 Active 15 GM Inhaler Premarin 0.625 MG/GM Vaginal Cream Insert 1 [...] Start : 23-Nov-2018 Active 57 GM Tube Breo Ellipta 100-25 MCG/INH Inhalation Aerosol Powder Breath Activated * Refills: 0 Active OneTouch Ultra 2 w/Device Kit USE TO [...] López SOLAFJimena * Start : 11-Dec-2018 Active OneTouch Ultra Blue In Vitro Strip test once daily * Quantity: 100 Refills: 0 AYUSH BOYD M.D. * Start : 11-Dec-2018 Active Vitamin D3 Complete TABS * Refills: 0 Active Budesonide 0.5 MG/2ML Inhalation Suspension * Refills: 0 Active Carvedilol 12.5 MG Oral Tablet TAKE 1 TABLET TWICE DAILY WITH MEALS. * Quantity: 60 Refills: 1 JOSE C WATERS M.D. * Start : 26-Jan-2019 Active Allergies and Adverse Reactions Name Dates [...] Name Dates Details Fluzone INJ Lot #: [id number] on: 04-Apr-2013 Fluzone INJ Lot #: [id number] on: 08-Feb-2014 Prevnar 13 Intramuscular Suspension Lot #: [id number] on: 22-Nov-2014 Fluzone Quadrivalent 0.5 ML Intramuscular Suspension Lot #: [id number] on: 26-Apr-2016 Pneumococcal polysaccharide vaccine, 23 valent Lot #: [id number] on: 23-Dec-2016 Fluzone Quadrivalent 0.5 ML Intramuscular Suspension Prefilled Syringe Lot #: [id number] on: 23-Mar-2018 Influenza on: 06-Mar-2019 Tdap on: [...] (finding) Vital Signs Date Test Result Details :06 Systolic blood pressure 127 mm[Hg] Status: Comments: Location: LUE; Position: Sitting Diastolic blood pressure 87 mm[Hg] Status: Comments: Location: LUE; Position: Sitting Body height 62 in Status: Weight 220 lb Status: Body mass index (BMI) [Ratio] 40.24 kg/m2 Status: Body surface area Derived from formula 1.99 m2 Status: Body temperature 97.4 f Status: Comments: Method: Temporal Heart Rate 92 /min Status: Respiratory rate 16 /min Status: :22 Systolic blood pressure 153 mm[Hg] Status: [...] Status: Results Date Description Value Details :16 [QL] CMP W/EGFR GLUCOSE 146 mg/dl (Above high threshold) Range: 65-139 Comments: Non-fasting reference interval UREA NITROGEN (BUN) 30 mg/dl (Above high threshold) Range: 7-25 CREATININE 1.14 mg/dl (Above high threshold) Range: 0.60-0.93 Comments: For patients >49 years of age, the reference limitfor Creatinine is approximately 13% higher for peopleidentified as -[place]. eGFR NON- 46 {ML/MIN/1.7} (Below low threshold) [...] ALT 16 u/l (Normal) Range: 6-29 :16 [QL] SED RATE BY MODIFIED WESTERGREN SED RATE [...] clinically indicated. For additional information, please refer tohttp://Modern Meadow.[email or web address]/faq/NCY350(This link is being provided for informational/educational purposes only.) 7-Laj-987801:16 [Q] Antinuclear Antibody, Titer and Pattern Comments: [...] filaments, fibers and/ormicrotubules. This category includes anti-actin, ecnc-uqp-uizkgp myosin, anti-cytokeratin, anti-vimentin,anti-tropomyosin, anti- actinin, and anti-vinculin.Pattern may be found in mixed connective tissuedisease (MCTD), chronic active hepatitis, cirrhosis,myasthenia gravis, Crohn's disease, primary biliarycholangitis (PBC), long-term hemodialysis, infectiousor inflammatory conditions, psoriasis, ulcerativecolitis, system autoimmune rheumatic diseases (SARD)and in healthy persons. AC-15,16,17: Fibrillar International Consensus on ASHLEIGH Patterns(https://do i.org/10.1515/oywp-6230-0702) ASHLEIGH TITER 1:80 {titer} (Above high threshold) Comments: A low level ASHLEIGH titer may be present in pre-clinicalautoimmune diseases and normal individuals. Reference Range <1:40 Negative 1:40-1:80 Low Antibody Level >1:80 Elevated Antibody Level ASHLEIGH PATTERN Nuclear, Speckled (Abnormal) Comments: Speckled pattern is associated with mixed connectivetissue disease (MCTD), systemic lupus erythematosus(SLE), Sjogren's syndrome, dermatomyositis, and systemic sclerosis/polymyositis abebaa kenny AC-2,4,5,29: Speckled International Consensus on ASHLEIGH Patterns(https://doi.org/10.1515/kpps-4584-0409) :16 [QLH] C-REACTIVE PROTEIN C-REACTIVE PROTEIN 19.0 mg/L (Above high threshold) Range: <8.0 :16 [QLH] T4, FREE T4, FREE 1.4 ng/dl (Normal) Range: 0.8-1.8 :16 [QLH] TSH, 3RD GENERATION Comments: REPORT COMMENT:FASTING:NO [...] is not sufficient to make thediagnosis of [place]. For additional information, please refer to http://education.Bouf/faq/PRE265 (This link is being provided for informational/educational purposes only.) :00 [Q] TEST IN QUESTION- MISC QUESTION Comments: REPORT COMMENT:FASTING:YES QUESTION/PROBLEM: Comments: THERE IS A QUESTION REGARDING THE FOLLOWING SPECIMENSUBMITTED AND/OR THE TEST REQUESTED. QUESTION: VERIFY TEST [id number] . Comments: To prevent further delays in testing, please completeinformation above and fax to [phone] to resolvethis order. Plan of Care Name Dates Details Planned Observations Planned Goals not documented Planned Encounters Appointment; BALAJI DELGADO M.D. On: 08-Aug-2019 14:00 Appointment; BALAJI DELGADO M.D. On: 14-Aug-2019 15:00 [...] Problem not documented On: 03-Apr-2018 13:00 Appointment; [facility], [facility] Encounter Diagnosis: Problem not documented On: 03-May-2018 11:00 Appointment; [facility] Encounter Diagnosis: Problem not documented On: [...] Problem not documented On: 06-Mar-2019 13:15 [facility] [place] [place] Encounter Diagnosis: Problem not documented On: [...] Diagnosis: Problem not documented On: 31-Jul-2019 11:00 Appointment; AYUSH BOYD M.D. Encounter Diagnosis: Problem not documented On: 08-Aug-2019 13:30
--- OUTSIDE RECORDS SUMMARY | 2019-08-14 15:43 | XMS REPORT | Summary of Care ---
Author Author Aba Farley R.N. Unknown Address [facility] Phone Unavailable Care Team Providers Care Cotton Classer Aide Name Role Phone OLIVER López, AYUSH Unavailable Unavailable DANNY López, BALAJI Unavailable Unavailable DARYL López, YAKELIN Unavailable Unavailable JT López, JOSE C Unavailable Unavailable OLIVER MONTANEZ [place], AYUSH Marr Unavailable Unavailable DARYL MONTANEZ, YAKELIN Unavailable Unavailable ANTHONY MONTANEZ, CHELSY Unavailable Unavailable Cecilia MONTANEZ, Rodrigo Unavailable Unavailable Danny MONTANEZ, Balaji Unavailable Unavailable LINDA FUENTESC, CLAY Unavailable Unavailable DAVID ADOPTION WORKER-C, TAWANNA Aparicio Unavailable Unavailable GIA MONTANEZ [place], [...] DAY * Quantity: 90 Refills: 2 AYUSH BODY M.D. * Start : 28-Oct-2017 Active Olmesartan [...] Name Dates Details Fluzone INJ Lot #: [id number] on: 04-Apr-2013 Fluzone INJ Lot #: [id number] on: 08-Feb-2014 Prevnar 13 Intramuscular Suspension Lot #: [id number] on: 22-Nov-2014 Fluzone Quadrivalent 0.5 ML Intramuscular Suspension Lot #: [id number] on: 26-Apr-2016 Pneumococcal polysaccharide vaccine, 23 valent Lot #: [id number] on: 23-Dec-2016 Fluzone Quadrivalent 0.5 ML Intramuscular Suspension Prefilled Syringe Lot #: [id number] on: 23-Mar-2018 Influenza on: 06-Mar-2019 Tdap on: [...] is approximately 13% higher for peopleidentified as -Botswanan. eGFR NON- 46 {ML/MIN/1.7} (Below low threshold) [...] WESTERGREN 11 mm/h (Normal) Range: < OR=30 [id number]-[id number]:16 [Q] ASHLEIGH IFA SCREEN W/REFL TO TITER [...] clinically indicated. For additional information, please refer tohttp://education.Embly/faq/GQR920(This link is being provided for informational/educational purposes [...] filaments, fibers and/ormicrotubules. This category includes anti-actin, igyg-cxw-amomwo myosin, anti-cytokeratin, anti-vimentin,anti-tropomyosin, anti- actinin, and anti-vinculin.Pattern may be found in mixed connective tissuedisease (MCTD), chronic active hepatitis, cirrhosis,myasthenia gravis, Crohn's disease, primary biliarycholangitis (PBC), long-term hemodialysis, infectiousor inflammatory conditions, psoriasis, ulcerativecolitis, system autoimmune rheumatic diseases (SARD)and in healthy persons. AC-15,16,17: Fibrillar International Consensus on ASHLEIGH Patterns(https://do i.org/10.1515/wqlo-4924-6287) ASHLEIGH TITER 1:80 {titer} (Above high threshold) [...] p. AC-2,4,5,29: Speckled International Consensus on ASHLEIGH Patterns(https://doi.org/10.1515/ymed-7320-3117) :16 [QLH] C-REACTIVE PROTEIN C-REACTIVE PROTEIN 19.0 mg/L (Above high threshold) Range: <8.0 :16 [QL] T4, FREE T4, FREE 1.4 ng/dl [...] age.Reference: J. Am. Justin. Cardiol. 2002; 40:976-982. : [QL] TROPONIN I TROPONIN I 0.02 ng/ml (Normal) Range: < OR=0.05 Comments: In accord with published recommendations, serialtesting of troponin I at intervals of 2 to 4 hoursfor up to 12 to 24 hours is suggested in order tocorroborate a single troponin I result. An elevatedtroponin alone is not sufficient to make thediagnosis of PR. For additional information, please refer to http://education.Gratci.worldhistoryproject/faq/CLQ037 (This link is being provided for informational/educational purposes only.) :00 [Q] TEST IN QUESTION- MISC QUESTION Comments: REPORT COMMENT:FASTING:YES QUESTION/PROBLEM: Comments: THERE IS A QUESTION REGARDING THE FOLLOWING SPECIMENSUBMITTED AND/OR THE TEST REQUESTED. QUESTION: VERIFY TEST [id number] . Comments: To prevent further delays in testing, please completeinformation above and fax to [phone] to resolvethis order. Plan of Care Name Dates Details Planned Observations Planned Goals not documented Planned Encounters Appointment; AYUSH BOYD M.D. On: 08-Aug-2019 13:30 Appointment; BALAJI DELGADO M.D. On: 14-Aug-2019 15:00 Appointment; CHELSY CRUZ M.D. On: 03-Sep-2019 14:30 Appointment; BALAJI DELGADO M.D. On: 14-Sep-2019 13:20 Appointment; AYUSH BOYD M.D. On: 10-Oct-2019 10:00 Interventions Provided Follow-ups/Referrals* Combination Man Service Request; To Be Done: 31 Jul 2019 Instructions Name Dates Details Instructions [...] not documented On: 03-Feb-2018 9:45 Appointment; KARYN RCOSS M.D. Encounter Diagnosis: Problem not documented On: [...]
--- OUTSIDE RECORDS SUMMARY | 2019-08-14 15:43 | XMS REPORT | Summary of Care ---
Author Author Lai Theodore, Mariah Olivares Unknown Address [facility] Phone Unavailable Care Team Providers Care Manager Progressive Care Name Role Phone OLIVER López, AYUSH Unavailable Unavailable DANNY López, BALAJI Unavailable Unavailable Lai Theodore, Mariah Unavailable Unavailable DARYL López, SOLAFA Unavailable Unavailable JT López, JOSE C Unavailable Unavailable OLIVER MONTANEZ [place], AYUSH Marr Unavailable Unavailable ADRYL MONTANEZ, SOLAFA Unavailable Unavailable ANTHONY MONTANEZ, CHELSY Unavailable Unavailable Cecilia MONTANEZ, Rodrigo Unavailable Unavailable Danny MONTANEZ, Balaji Unavailable Unavailable LINDA KAMARA, CLAY Unavailable Unavailable DAVID SCOTT-Radha, TAWANNA Aparicio Unavailable Unavailable GIA MONTANEZ [place], O[place]O Pond Unavailable Unavailable AMERICA MONTANEZ, MOUSTXAVIERA Unavailable Unavailable TABITHA MONTANEZ [place], JOCLEIN BANKS Unavailable Unavailable JT MONTANEZ, JOSE C [...] daily * Quantity: 100 Refills: 0 OLIVER Lópze, AYUSH * Start : 11-Dec-2018 Active OneTouch [...] Name Dates Details Fluzone INJ Lot #: [id number] on: 04-Apr-2013 Fluzone INJ Lot #: [id number] on: 08-Feb-2014 Prevnar 13 Intramuscular Suspension Lot #: [id number] on: 22-Nov-2014 Fluzone Quadrivalent 0.5 ML Intramuscular Suspension Lot #: [id number] on: 26-Apr-2016 Pneumococcal polysaccharide vaccine, 23 valent Lot #: [id number] on: 23-Dec-2016 Fluzone Quadrivalent 0.5 ML Intramuscular Suspension Prefilled Syringe Lot #: [id number] on: 23-Mar-2018 Influenza on: 06-Mar-2019 Tdap on: [...] is approximately 13% higher for peopleidentified as -Hungarian. eGFR NON- 46 {ML/MIN/1.7} (Below low threshold) [...] 10-35 ALT 16 u/l (Normal) Range: 6-29 [id number]-Bfw-[id number]:16 [QLH] SED RATE BY MODIFIED WESTERGREN SED RATE BY MODIFIED WESTERGREN 11 mm/h (Normal) Range: < OR=30 6-Qgy-[id number]:16 [Q] ASHLEIGH IFA SCREEN W/REFL TO TITER [...] clinically indicated. For additional information, please refer tohttp://[email or web address]/faq/EQL856(This link is being provided for informational/educational purposes [...] filaments, fibers and/ormicrotubules. This category includes anti-actin, drhl-eej-zpqzdw myosin, anti-cytokeratin, anti-vimentin,anti-tropomyosin, anti- actinin, and anti-vinculin.Pattern may be found in mixed connective tissuedisease (MCTD), chronic active hepatitis, cirrhosis,myasthenia gravis, Crohn's disease, primary biliarycholangitis (PBC), long-term hemodialysis, infectiousor inflammatory conditions, psoriasis, ulcerativecolitis, system autoimmune rheumatic diseases (SARD)and in healthy persons. AC-15,16,17: Fibrillar International Consensus on ASHLEIGH Patterns(https://do i.org/10.1515/yunr-7966-0402) ASHLEIGH TITER 1:80 {titer} (Above high threshold) [...] p. AC-2,4,5,29: Speckled International Consensus on ASHLEIGH Patterns(https://doi.org/10.1515/lfvw-8970-2414) :16 [QLH] C-REACTIVE PROTEIN C-REACTIVE PROTEIN 19.0 [...] CT. For additional information, please refer to http://education.Medialets.DigiFun Games/faq/NOT166 (This link is being provided for informational/educational purposes only.) :00 [Q] TEST IN QUESTION- MISC QUESTION Comments: REPORT COMMENT:FASTING:YES QUESTION/PROBLEM: Comments: THERE IS A QUESTION REGARDING THE FOLLOWING SPECIMENSUBMITTED AND/OR THE TEST REQUESTED. QUESTION: VERIFY TEST [id number] . Comments: To prevent further delays in testing, please completeinformation above and fax to [phone] to resolvethis order. Plan of Care Name Dates Details Planned Observations Planned Goals not documented Planned Encounters Appointment; AYUSH BOYD M.D. On: 08-Aug-2019 13:30 Appointment; BALAJI DELGADO M.D. On: 14-Aug-2019 15:00 Appointment; CHELSY CRUZ M.D. On: 03-Sep-2019 14:30 Appointment; BALAJI DELGADO M.D. On: 14-Sep-2019 13:20 Appointment; AYUSH BOYD M.D. On: 10-Oct-2019 10:00 Instructions Name Dates Details Instructions not documented Encounters Appointment; AYUSH BODY M.D. Encounter Diagnosis: Problem not documented On: [...]
--- OUTSIDE RECORDS SUMMARY | 2019-08-14 15:44 | XMS REPORT | Summary of Care ---
Author Author DANNY López, BALAJI Olivares Unknown Address Unknown Phone Unavailable Care Team Providers Care Subject Scientific Research Name Role Phone OLIVER López, AYUSH Unavailable Unavailable DANNY López, BALAJI Unavailable Unavailable DARYL López, YAKELIN Unavailable Unavailable JT López, JOSE C Unavailable Unavailable OLIVER MONTANEZ [place], AYUSH Marr Unavailable Unavailable DARYL MONTANEZ, SOLBARBARA Unavailable Unavailable ANTHONY MONTANEZ, CHELSY Unavailable Unavailable Cecilia MONTANEZ, Rodrigo Unavailable Unavailable Danny MONTANEZ, Balaji Unavailable Unavailable LINDA FUENTESC, CLAY Unavailable Unavailable DAVID SCOTT-C, TAWANNA Aparicio Unavailable Unavailable GIA MONTANZE [place], O[place]O Pond Unavailable Unavailable AMERICA MONTANEZ, KARYN Unavailable Unavailable TABITHA MONTANEZ [place], JOCELIN BANKS Unavailable Unavailable JT MONTANEZ, JOSE [...] Active Mitral regurgitation (424.0, I34.0) Status: Active Status post left hip replacement [...] Essential (primary) hypertension (401.9, I10) Status: Active Atrial fibrillation (427.31, I48.91) Status: Active Aortic stenosis (424.1, I35.0) Status: Active Medications Name Dates Details metFORMIN [...] A DAY. * Quantity: 1 Refills: 3 OLIVER López, AYUSH * Start : 08-Jun-2018 Active 25 x 3 ML Box Levalbuterol Tartrate 45 MCG/ACT Inhalation Aerosol INHALE 1 TO 2 PUFFS EVERY 4 TO 6 HOURS NEEDED. * Quantity: 1 Refills: 3 OLIVER López, AYUSH * Start : 12-Nov-2016 Active 15 GM [...] Name Dates Details Fluzone INJ Lot #: [id number] on: 04-Apr-2013 Fluzone INJ Lot #: [id number] on: 08-Feb-2014 Prevnar 13 Intramuscular Suspension Lot #: [id number] on: 22-Nov-2014 Fluzone Quadrivalent 0.5 ML Intramuscular Suspension Lot #: [id number] on: 26-Apr-2016 Pneumococcal polysaccharide vaccine, 23 valent Lot #: [id number] on: 23-Dec-2016 Fluzone Quadrivalent 0.5 ML Intramuscular Suspension Prefilled Syringe Lot #: [id number] on: 23-Mar-2018 Influenza on: 06-Mar-2019 Tdap on: [...] blood pressure 87 mm[Hg] Status: Comments: Location: E; Position: Sitting Body height 62 in Status: [...] is approximately 13% higher for peopleidentified as -[place]er. eGFR NON- 46 {ML/MIN/1.7} (Below low threshold) [...] clinically indicated. For additional information, please refer tohttp://education.Archy/faq/JTE951(This link is being provided for informational/educational purposes only.) 6-Ibz-058388:16 [Q] Antinuclear Antibody, Titer and Pattern Comments: [...] filaments, fibers and/ormicrotubules. This category includes anti-actin, bmxk-gkd-dfpmlu myosin, anti-cytokeratin, anti-vimentin,anti-tropomyosin, anti- actinin, and anti-vinculin.Pattern may be found in mixed connective tissuedisease (MCTD), chronic active hepatitis, cirrhosis,myasthenia gravis, Crohn's disease, primary biliarycholangitis (PBC), long-term hemodialysis, infectiousor inflammatory conditions, psoriasis, ulcerativecolitis, system autoimmune rheumatic diseases (SARD)and in healthy persons. AC-15,16,17: Fibrillar International Consensus on ASHLEIGH Patterns(https://do i.org/10.1515/jpdd-0137-8923) ASHLEIGH TITER 1:80 {titer} (Above high threshold) [...] kenny AC-2,4,5,29: Speckled International Consensus on ASHLEIGH Patterns(https://doi.org/10.1515/hpot-9172-2100) :16 [QLH] C-REACTIVE PROTEIN C-REACTIVE PROTEIN 19.0 [...] code.TEST CODE IS FOR AWA STATS ONLY :00 [QLH] B TYPE NATRIURETIC PEPTIDE (BNP) B [...] is not sufficient to make thediagnosis of ID. For additional information, please refer to http://education.Xand/faq/FYK701 (This link is being provided for informational/educational purposes only.) :00 [Q] TEST IN QUESTION- MISC QUESTION Comments: REPORT COMMENT:FASTING:YES QUESTION/PROBLEM: Comments: THERE IS A QUESTION REGARDING THE FOLLOWING SPECIMENSUBMITTED AND/OR THE TEST REQUESTED. QUESTION: VERIFY TEST [id number] . Comments: To prevent further delays in testing, please completeinformation above and fax to [phone] to resolvethis order. Plan of Care Name Dates Details Planned Observations Planned Goals not documented Planned Encounters Appointment; BALAJI DELGADO M.D. On: 08-Aug-2019 14:00 Appointment; BALAJI DELGADO M.D. On: 14-Aug-2019 15:00 Appointment; CHELSY CRUZ M.D. On: 03-Sep-2019 14:30 Appointment; BALAJI DELGADO M.D. On: 14-Sep-2019 13:20 Appointment; AYUSH BOYD M.D. On: 10-Oct-2019 10:00 Interventions Provided Plan* 1. Tachy/ leighann: paroxysmal [...] Problem not documented On: 03-Apr-2018 13:00 Appointment; [facility] Encounter Diagnosis: Problem not documented On: [...] Diagnosis: Problem not documented On: 08-Aug-2019 13:30 Appointment; BALAJI DELGADO M.D. Encounter Diagnosis: Problem not documented On: 08-Aug-2019 14:00
--- OUTSIDE RECORDS SUMMARY | 2019-08-14 15:44 | XMS REPORT | Summary of Care ---
Author Estefani Buchanan Unknown Address Unknown Phone Unavailable Care Team Providers Care Creative Director Name Role Phone OLIVER López, AYUSH Unavailable Unavailable DANNY López, BALAJI Unavailable Unavailable DARYL López, YAKELIN Unavailable Unavailable OLIVER MONTANEZ [place], AYUSH Marr Unavailable Unavailable DARYL MONTANEZ, SOLAFJimena Unavailable Unavailable ANTHONY MONTANEZ, CHELSY Unavailable Unavailable Cecilia MONTANEZ, Rodrigo Unavailable Unavailable Danny MONTANEZ, Balaji Unavailable Unavailable LINDA KAMARA, CLAY Unavailable Unavailable DAVID LAUNDRY OPERATOR FINISHING-C, TAWANNA Aparicio Unavailable Unavailable GIA MONTANEZ [place], [place] Pond Unavailable Unavailable AMERICA MONTANEZ, KARYN Unavailable Unavailable TABITHA MONTANEZ [place], JOCELIN BANKS Unavailable Unavailable JT MONTANEZ, JOSE [...] Active Diastolic dysfunction (429.9, I51.89) Status: Active Need for influenza vaccination (V04.81, Z23) Status: Active Sore throat (462, J02.9) Status: Active Pharyngitis due to Streptococcus pyogenes (034.0, J02.0) Status: Active Increased urinary frequency (788.41, R35.0) [...] Active Aortic stenosis (424.1, I35.0) Status: Active Asthma (493.90, J45.909) Status: Active Coughing (786.2, R05) Status: Active Congestive heart failure (428.0, I50.9) Status: Active Junctional 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 * Start : 11-Sep-2018 Active Montelukast Sodium 10 MG Oral Tablet TAKE 1 TABLET BY MOUTH EVERY DAY * Quantity: 90 Refills: 2 AYUSH BOYD M.D. * Start : 28-Oct-2017 Active Olmesartan Medoxomil 40 MG Oral Tablet TAKE 1 TABLET BY MOUTH EVERY DAY * Quantity: 90 Refills: 2 AYUSH BOYD M.D. * Start : 08-Jun-2018 Active Desitin 40 % External Paste Apply to [...] López SOLAFA * Start : 11-Dec-2018 Active Vitamin D3 Complete TABS * Refills: 0 M.A. Active Budesonide 0.5 MG/2ML Inhalation Suspension * Refills: 0 M.A. Active Atrovent HFA 17 MCG/ACT Inhalation Aerosol Solution INHALE 2 PUFFS 4 TIMES DAILY NEEDED. * Refills: 0 M.A. * Start : 08-Aug-2019 Active 12.9 GM Inhaler Metoprolol Tartrate 100 MG Oral Tablet TAKE 1 TABLET 3 TIMES DAILY * Refills: 0 M.A. * Start : 08-Aug-2019 Active Allergies and Adverse Reactions Name Dates [...] Name Dates Details Fluzone INJ Lot #: [id number] on: 04-Apr-2013 Fluzone INJ Lot #: [id number] on: 08-Feb-2014 Prevnar 13 Intramuscular Suspension Lot #: [id number] on: 22-Nov-2014 Fluzone Quadrivalent 0.5 ML Intramuscular Suspension Lot #: [id number] on: 26-Apr-2016 Pneumococcal polysaccharide vaccine, 23 valent Lot #: [id number] on: 23-Dec-2016 Fluzone Quadrivalent 0.5 ML Intramuscular Suspension Prefilled Syringe Lot #: [id number] on: 23-Mar-2018 Influenza on: 06-Mar-2019 Tdap on: [...] (finding) Vital Signs Date Test Result Details :59 Systolic blood pressure 135 mm[Hg] Status: Comments: Location: LUE; Position: Sitting Diastolic blood pressure 86 mm[Hg] Status: Comments: Location: LUE; Position: Sitting Body height 62 in Status: Body mass index (BMI) [Ratio] 40.06 kg/m2 Status: Body surface area Derived from formula 1.99 m2 Status: Weight 219 lb Status: Heart Rate 106 /min Status: :06 Systolic blood pressure 127 mm[Hg] Status: Comments: Location: LUE; Position: Sitting Diastolic blood pressure 87 mm[Hg] Status: Comments: Location: LUE; Position: Sitting Body height 62 in Status: Body mass index (BMI) [Ratio] 40.24 kg/m2 Status: Body surface area Derived from formula 1.99 m2 Status: Weight 220 lb Status: Heart Rate 92 /min Status: Body temperature 97.4 f Status: Comments: Method: Temporal Respiratory rate 16 /min Status: :22 Systolic blood pressure 153 mm[Hg] Status: Comments: Location: LUE; Position: Sitting Diastolic blood pressure 88 mm[Hg] Status: Comments: Location: LUE; Position: Sitting Body height 62 in Status: Body mass index (BMI) [Ratio] 42.14 kg/m2 Status: Body surface area Derived from formula 2.03 m2 Status: Weight 230.375 lb Status: Heart Rate 127 /min Status: Body temperature 98.9 f Status: Comments: Method: Temporal Respiratory rate 20 /min Status: O2 SAT 98 % Status: :36 Systolic blood pressure 119 mm[Hg] Status: Comments: Location: LUE; Position: Sitting Diastolic blood pressure 80 mm[Hg] Status: Comments: Location: LUE; Position: Sitting Body height 62 in Status: Body mass index (BMI) [Ratio] 40.68 kg/m2 Status: Body surface area Derived from formula 2 m2 Status: Weight 222.4 lb Status: Heart Rate 130 /min Status: Comments: Location: L Radial; Body temperature 96.9 f Status: Comments: Method: Temporal Respiratory rate 16 /min Status: Results Date Description Value Details :16 [QLH] CMP W/EGFR GLUCOSE 146 mg/dl (Above high threshold) Range: 65-139 Comments: Non-fasting reference interval UREA NITROGEN (BUN) 30 mg/dl (Above high threshold) Range: 7-25 CREATININE 1.14 mg/dl (Above high threshold) Range: 0.60-0.93 Comments: For patients >49 years of age, the reference limitfor Creatinine is approximately 13% higher for peopleidentified as -Maldivian. eGFR NON- 46 {ML/MIN/1.7} (Below low threshold) [...] clinically indicated. For additional information, please refer tohttp://education.Material Wrld/faq/SSB742(This link is being provided for informational/educational purposes [...] filaments, fibers and/ormicrotubules. This category includes anti-actin, shvj-spz-myzztc myosin, anti-cytokeratin, anti-vimentin,anti-tropomyosin, anti- actinin, and anti-vinculin.Pattern may be found in mixed connective tissuedisease (MCTD), chronic active hepatitis, cirrhosis,myasthenia gravis, Crohn's disease, primary biliarycholangitis (PBC), long-term hemodialysis, infectiousor inflammatory conditions, psoriasis, ulcerativecolitis, system autoimmune rheumatic diseases (SARD)and in healthy persons. AC-15,16,17: Fibrillar International Consensus on ASHLEIGH Patterns(https://do i.org/10.1515/zwsv-5215-9323) ASHLEIGH TITER 1:80 {titer} (Above high threshold) [...] p. AC-2,4,5,29: Speckled International Consensus on ASHLEIGH Patterns(https://doi.org/10.1515/yhfu-5867-8943) :16 [QLH] C-REACTIVE PROTEIN C-REACTIVE PROTEIN 19.0 [...] J. Am. Justin. Cardiol. 2002; 40:976-982. : [QLH] TROPONIN I TROPONIN I 0.02 ng/ml (Normal) Range: < OR=0.05 Comments: In accord with published recommendations, serialtesting of troponin I at intervals of 2 to 4 hoursfor up to 12 to 24 hours is suggested in order tocorroborate a single troponin I result. An elevatedtroponin alone is not sufficient to make thediagnosis of MS. For additional information, please refer to http://education.Tenfoot/faq/ARM669 (This link is being provided for informational/educational purposes only.) :00 [Q] TEST IN QUESTION- MISC QUESTION Comments: REPORT COMMENT:FASTING:YES QUESTION/PROBLEM: Comments: THERE IS A QUESTION REGARDING THE FOLLOWING SPECIMENSUBMITTED AND/OR THE TEST REQUESTED. QUESTION: VERIFY TEST [id number] . Comments: To prevent further delays in testing, please completeinformation above and fax to [phone] to resolvethis order. Plan of Care Name Dates Details Planned Observations Planned Goals not documented Planned Encounters Cardiology Referral Appointment; BALAJI DELGADO M.D. On: 14-Aug-2019 15:00 Appointment; CHELSY CRUZ M.D. On: 03-Sep-2019 14:30 Appointment; BALAJI DELGADO M.D. On: 12-Sep-2019 14:00 Appointment; AYUSH BOYD M.D. On: 10-Oct-2019 10:00 [...] Problem not documented On: 16-May-2018 13:00 Appointment; ABLAJI DELGADO M.D. Encounter Diagnosis: Problem not documented [...] Problem not documented On: 06-Mar-2019 13:15 [facility] Encounter Diagnosis: Problem not documented On: [...]
--- OUTSIDE RECORDS SUMMARY | 2019-08-14 15:44 | XMS REPORT | Summary of Care ---
Author Author DANNY López, BALAJI Olivares Unknown Address Unknown Phone Unavailable Care Team Providers Care Dump Truck Operator Name Role Phone OLIVER Lóepz, AYUSH Unavailable Unavailable DANNY López, BALAJI Unavailable Unavailable DARYL López, YAKELIN Unavailable Unavailable OLIVER MONTANEZ UT, AYUSH Marr Unavailable Unavailable DARYL MONTANEZ, SOLAFA Unavailable Unavailable ANTHONY MONTANEZ, CHELSY Unavailable Unavailable Cecilia MONTANEZ, Rodrigo Unavailable Unavailable Danny MONTANEZ, Balaji Unavailable Unavailable LINDA PA-C, CLAY Unavailable Unavailable DAVID ROVING DEPARTMENT END FINDER-C, TAWANNA Aparicio Unavailable Unavailable GIA MONTANEZ [place], OTTO Pond Unavailable Unavailable AMERICA MONTANEZ, MOUSTAFA Unavailable Unavailable TABITHA MONTANEZ [place], JOCELIN BANKS Unavailable Unavailable JT MONTANEZ, JOSE [...] López, SOLAFA * Start : 11-Dec-2018 Active OneTouch Ultra Blue In Vitro Strip test once daily * Quantity: 100 Refills: 0 AYUSH BOYD M.D. * Start : 11-Dec-2018 Active Vitamin D3 Complete TABS * Refills: 0 Active Budesonide 0.5 MG/2ML Inhalation Suspension * Refills: 0 Active Atrovent HFA 17 MCG/ACT Inhalation Aerosol Solution INHALE 2 PUFFS 4 TIMES DAILY NEEDED. * Refills: 0 * Start : 08-Aug-2019 Active 12.9 GM Inhaler Metoprolol Tartrate 100 MG Oral Tablet TAKE 1 TABLET 3 TIMES DAILY * Refills: 0 * Start : 08-Aug-2019 Active Allergies and [...] Name Dates Details Fluzone INJ Lot #: [id number] on: 04-Apr-2013 Fluzone INJ Lot #: [id number] on: 08-Feb-2014 Prevnar 13 Intramuscular Suspension Lot #: [id number] on: 22-Nov-2014 Fluzone Quadrivalent 0.5 ML Intramuscular Suspension Lot #: [id number] on: 26-Apr-2016 Pneumococcal polysaccharide vaccine, 23 valent Lot #: [id number] on: 23-Dec-2016 Fluzone Quadrivalent 0.5 ML Intramuscular Suspension Prefilled Syringe Lot #: [id number] on: 23-Mar-2018 Influenza on: 06-Mar-2019 Tdap on: [...] blood pressure 153 mm[Hg] Status: Comments: Location: E; Position: Sitting Diastolic blood pressure 88 mm[Hg] [...] blood pressure 119 mm[Hg] Status: Comments: Location: E; Position: Sitting Diastolic blood pressure 80 mm[Hg] Status: Comments: Location: E; Position: Sitting [...] is approximately 13% higher for peopleidentified as -Scottish. eGFR NON- 46 {ML/MIN/1.7} (Below low threshold) [...] 10-35 ALT 16 u/l (Normal) Range: 6-29 8-Fei-[id number]:16 [QLH] SED RATE BY MODIFIED WESTERGREN SED [...] clinically indicated. For additional information, please refer tohttp://education.Virtual[employer] Software/faq/WFK848(This link is being provided for informational/educational purposes [...] filaments, fibers and/ormicrotubules. This category includes anti-actin, gjga-nko-isjslk myosin, anti-cytokeratin, anti-vimentin,anti-tropomyosin, anti- actinin, and anti-vinculin.Pattern may be found in mixed connective tissuedisease (MCTD), chronic active hepatitis, cirrhosis,myasthenia gravis, Crohn's disease, primary biliarycholangitis (PBC), long-term hemodialysis, infectiousor inflammatory conditions, psoriasis, ulcerativecolitis, system autoimmune rheumatic diseases (SARD)and in healthy persons. AC-15,16,17: Fibrillar International Consensus on ASHLEIGH Patterns(https://do i.org/10.1515/pklj-2610-5855) ASHLEIGH TITER 1:80 {titer} (Above high threshold) [...] p. AC-2,4,5,29: Speckled International Consensus on ASHLEIGH Patterns(https://doi.org/10.1515/epxr-1246-0937) 5-Jup-996236:16 [QLH] C-REACTIVE PROTEIN C-REACTIVE PROTEIN 19.0 mg/L [...] is not sufficient to make thediagnosis of [place]. For additional information, please refer to http://education.HipLogiq.Group [employer]/faq/DQI974 (This link is being provided for informational/educational purposes only.) :00 [Q] TEST IN QUESTION- MISC QUESTION Comments: REPORT COMMENT:FASTING:YES QUESTION/PROBLEM: Comments: THERE IS A QUESTION REGARDING THE FOLLOWING SPECIMENSUBMITTED AND/OR THE TEST REQUESTED. QUESTION: VERIFY TEST [id number] . Comments: To prevent further delays in testing, please completeinformation above and fax to [phone] to resolvethis order. Plan of Care Name [...] - PPM interrogation=reviewed and normal functioning PPM in the last visit * - ECG today with junctional tachycardia- plan to see EP * - stop amiodarone, cont metoprolol 100 tid for now * 2. SOB: * - 05/18/2017 nuclear stress test OK * - s/p asthma exacerbation, s/p steroids * - echo: EF normal and 2018 * - Nuclear stress test 2016 reviewed and normal * - cont Furosemide 40 mg po daily * 3. HTN: at home in the 120s * - will cont metoprolol 100 tid * - cont Hydralazine 100 mg po daily * - cont Losartan 100 mg po daily * - cont furosemide * 4. Fasting lipid panel from 01/2018 [...] not documented On: 09-Nov-2018 15:00 Appointment; BALAJI DELGDAO M.D. Encounter Diagnosis: Problem not documented On: [...]
--- OUTSIDE RECORDS SUMMARY | 2019-08-14 15:45 | XMS REPORT | Summary of Care ---
Author Author Leonie Garrido R.N. Unknown Address Unknown Phone Unavailable Care Team Providers Care Insulation Worker Interior Surface Name Role Phone OLIVER López, AYUSH Unavailable Unavailable DANNY López, BALAJI Unavailable Unavailable DARYL López, BOLIVARAFA Unavailable Unavailable OLIVER MONTANEZ DC, AYUSH Marr Unavailable Unavailable DARYL MONTANEZ, SOLAFA Unavailable Unavailable ANTHONY MONTANEZ, CHELSY Unavailable Unavailable Cecilia MONTANEZ, Rodrigo Unavailable Unavailable Danny MONTANEZ, Balaji Unavailable Unavailable LINDA PA-C, CLAY Unavailable Unavailable DAVID LUMBER CHECKER-C, TAWANNA Aparicio Unavailable Unavailable GIA MONTANEZ DC, OTTO Pond Unavailable Unavailable AMERICA MONTANEZ, FELICIAUSTBARBARA Unavailable Unavailable TABITHA MONTANEZ DC, JOCELIN BANKS Unavailable Unavailable JT MONTANEZ, JOSE [...] Active 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 CALL 911 IF PAIN PERSISTS 5 MINUTES AFTER 3rd DOSE * Quantity: 30 Refills: 0 BALAJI DELGADO M.D. * Start : 09-Aug-2019 Active Allergies and Adverse Reactions Name Dates [...] Name Dates Details Fluzone INJ Lot #: [id number] on: 04-Apr-2013 Fluzone INJ Lot #: [id number] on: 08-Feb-2014 Prevnar 13 Intramuscular Suspension Lot #: [id number] on: 22-Nov-2014 Fluzone Quadrivalent 0.5 ML Intramuscular Suspension Lot #: [id number] on: 26-Apr-2016 Pneumococcal polysaccharide vaccine, 23 valent Lot #: [id number] on: 23-Dec-2016 Fluzone Quadrivalent 0.5 ML Intramuscular Suspension Prefilled Syringe Lot #: [id number] on: 23-Mar-2018 Influenza on: 06-Mar-2019 Tdap on: [...] is approximately 13% higher for peopleidentified as -[place]rist[place]. eGFR NON- 46 {ML/MIN/1.7} (Below low threshold) [...] clinically indicated. For additional information, please refer tohttp://education.G[employer]m/faq/SDI624(This link is being provided for informational/educational purposes [...] filaments, fibers and/ormicrotubules. This category includes anti-actin, krxz-mud-vrdclm myosin, anti-cytokeratin, anti-vimentin,anti-tropomyosin, anti- actinin, and anti-vinculin.Pattern may be found in mixed connective tissuedisease (MCTD), chronic active hepatitis, cirrhosis,myasthenia gravis, Crohn's disease, primary biliarycholangitis (PBC), long-term hemodialysis, infectiousor inflammatory conditions, psoriasis, ulcerativecolitis, system autoimmune rheumatic diseases (SARD)and in healthy persons. AC-15,16,17: Fibrillar International Consensus on ASHLEIGH Patterns(https://do i.org/10.1515/qwju-4374-3115) ASHLEIGH TITER 1:80 {titer} (Above high threshold) [...] kenny AC-2,4,5,29: Speckled International Consensus on ASHLEIGH Patterns(https://doi.org/10.1515/wkog-6017-8453) :16 [QLH] C-REACTIVE PROTEIN C-REACTIVE PROTEIN 19.0 mg/L (Above high threshold) Range: <8.0 :16 [QLH] T4, FREE T4, FREE 1.4 ng/dl (Normal) Range: 0.8-1.8 :16 [QLH] TSH, 3RD GENERATION Comments: REPORT COMMENT:FASTING:NO TSH 1.51 {MIU/L} (Normal) Range: 0.40-4.50 :00 [Q] CK-MB CK TNP Comments: Test Not Performed. Incorrect test ordered. Pleasecontact Client Services forfurther assistance in orderingthe appropriate test code.TEST CODE IS FOR [email or web address] STATS ONLY :00 [QLH] B TYPE NATRIURETIC [...] is not sufficient to make thediagnosis of [place]. For additional information, please refer to http://education.Od[employer].Assistance.[employer]/faq/LEU681 (This link is being provided for informational/educational purposes only.) :00 [Q] TEST IN QUESTION- MISC QUESTION Comments: REPORT COMMENT:FASTING:YES QUESTION/PROBLEM: Comments: THERE IS A QUESTION REGARDING THE FOLLOWING SPECIMENSUBMITTED AND/OR THE TEST REQUESTED. QUESTION: VERIFY TEST [id number] . Comments: To prevent further delays in testing, please completeinformation above and fax to [phone] to resolvethis order. Plan of Care Name Dates Details Planned Observations Planned Goals not documented Planned Encounters Appointment; CHELSY CRUZ M.D. On: 03-Sep-2019 14:30 Appointment; BALAJI DELGADO M.D. On: 12-Sep-2019 14:00 Appointment; AYUSH BOYD M.D. On: 10-Oct-2019 10:00 Interventions Provided Medication Changes* Nitroglycerin 0.4 MG Sublingual Tablet Sublingual - Start Instructions Name Dates Details Instructions not documented [...] Problem not documented On: 03-Apr-2018 13:00 Appointment; [facility] E[facility] Encounter Diagnosis: Problem not documented On: 03-May-2018 11:00 Appointment; [facility] Encounter Diagnosis: Problem not documented On: [...] documented On: 06-Mar-2019 13:15 Appointment; [facility], ECHO Encounter Diagnosis: Problem not documented On: [...] Diagnosis: Problem not documented On: 08-Aug-2019 14:00 Appointment; BALAJI DELGADO M.D. Encounter Diagnosis: Problem not documented On: 14-Aug-2019 15:00
[2019-08-14] MEDS ORDERED: DILTIAZEM HCL 5 MG/ML 5 ML VIAL IV STA (15:53)
[2019-08-14] MEDS ORDERED: SODIUM CHLORIDE 0.9% 1000ML 1,000 ML IV STA (15:53)
[2019-08-14 16:50] LABS: BASOPHILS % 0.3 % (0.0-1.0); EOSINOPHILS # (AUTO) 0.1 (0.0-0.4); EOSINOPHILS % 0.5 % (0.0-6.0); HEMATOCRIT 43.8 % (34.2-44.1); HEMOGLOBIN 14.2 g/dL (12.0-16.0); LYMPHOCYTES # (AUTO) 2.7 (1.0-3.2); LYMPHOCYTES % 18.8 % (18.0-39.1); MEAN CORPUSCULAR HGB CONC 32.4 g/dL (31-35); MEAN CORPUSCULAR VOLUME 92.6 fL (81-99); MONOCYTES # (AUTO) 0.9 (0.2-0.8); MONOCYTES % 6.3 % (4.4-11.3); NEUTROPHILS # (AUTO) 10.5 (2.1-6.9); NEUTROPHILS % 73.5 % (38.7-80.0); PLATELET COUNT 408 x10e3/uL (140-360); RED BLOOD COUNT 4.73 x10e6/uL (3.6-5.1); RED CELL DISTRIBUTION WIDTH 13.7 % (11.7-14.4)
[2019-08-14 17:06] LABS: INR 1.25; PARTIAL THROMBOPLASTIN TIME 34.3 seconds (23.8-35.5); PROTHROMBIN TIME 16.5 seconds (11.9-14.5)
[2019-08-14 17:13] LABS: ALANINE AMINOTRANSFERASE 9 IU/L (0-55); ALBUMIN 3.6 g/dL (3.5-5.0); ALKALINE PHOSPHATASE 97 IU/L (40-150); ANION GAP 12.9 mmol/L (8-16); BLOOD UREA NITROGEN 31 mg/dL (7-26); BUN/CREATININE RATIO 19 (6-25); CALCIUM 9.3 mg/dL (8.4-10.2); CARBON DIOXIDE 24 mmol/L (22-29); CHLORIDE 108 mmol/L (98-107); CREATINE KINASE 16 IU/L (29-168); CREATININE, SERUM 1.63 mg/dL (0.57-1.11); EST GLOMERULAR FILTRATION RATE 31 ML/MIN (60-); GLUCOSE 163 mg/dL (74-118); POTASSIUM 3.9 mmol/L (3.5-5.1); SODIUM 141 mmol/L (136-145)
--- NOTE | 2019-08-14 17:14 | Diagnostic Imaging Report ---
EXAMINATION: CHEST SINGLE (PORTABLE) COMPARISON: Chest x-ray 04/27/2019 INDICATION: Dizziness, hypotension, altered level of consciousness ^DIZZY ^[id number] ^[id number] DISCUSSION: Frontal view of the chest obtained at 1653 hours. HEART AND MEDIASTINUM: Stable cardiomegaly LINES: Pacemaker wires terminate in the right atrium and right ventricle and are stable LUNGS: The diaphragms are poorly visualized. Upper lung zones are clear PLEURA: No large effusions. No pneumothorax BONES AND SOFT TISSUES: Stable degenerative changes. The soft tissues are normal. IMPRESSION: Bibasilar airspace opacities may represent atelectasis or developing infiltrates. No large effusions. Stable cardiomegaly. Signed by: Dr. Aaron Ramos MD on 08/14/2019 5:11 PM
--- NOTE | 2019-08-14 17:24 | Diagnostic Imaging Report ---
Examination: CT BRAIN WO CONTRAST History:Dizziness. Comparison studies:None Technique: Axial images were obtained from the skull base to the vertex. Coronal and sagittal images reconstructed from the axial data. Dose modulation, iterative reconstruction, and/or weight based adjustment of the mA/kV was utilized to reduce the radiation dose to as low as reasonably achievable. Intravenous contrast: None Findings: Scalp: No abnormalities. Bones: No fractures, blastic or lytic lesions. Brain sulci: Appropriate for age. Ventricles: Normal in size and configuration. No hydrocephalus. Extra-axial space: No abnormalities. Parenchyma: No masses, hemorrhage, or acute or chronic cortical based vascular insults.. Sellar/suprasellar region: No abnormalities. Craniocervical junction: Patent foramen magnum. No Chiari one malformation. Incidental findings: Atherosclerotic calcification of the cavernous and supraclinoid internal carotid arteries. Impression: No acute intracranial abnormalities. Signed by: Dr. Nga Anand M.D. on 08/14/2019 5:21 PM
[2019-08-14 17:44] LABS: MAGNESIUM 1.9 MG/DL (1.3-2.1)
[2019-08-14 18:04] LABS: THYROID STIMULATING HORMONE 1.909 uIU/mL (0.350-4.940)
[2019-08-14 19:14] LABS: STREPTOCOCCUS GRP A ANTIGEN NEGATIVE (NEGATIVE)
[2019-08-14] MEDS ORDERED: DILTIAZEM HCL ER 120 MG CAP PO ONE (19:15)
[2019-08-14 19:22] LABS: INFLUENZAE A&B ANTIGEN (RAPID) NEGATIVE (NEGATIVE)
[2019-08-14] MEDS: CEFTRIAXONE SOD 1 GM/NS 50 ML 50 ML IV SCH (19:23)
--- NOTE | 2019-08-14 19:27 | NUR ---
Patient states she does not have to urinate at this time.
[2019-08-14] MEDS: AZITHROMYCIN 500MG/NS 250 ML 250 ML IV SCH (19:59)
[2019-08-14] MEDS ORDERED: ONDANSETRON HCL INJ 2MG/ML 2ML 2 MG/ML VIAL IV PRN ×2 (20:45→21:30)
[2019-08-14] MEDS ORDERED: SODIUM CHLORIDE 0.9% 1000ML 1,000 ML IV SCH (21:30)
[2019-08-14 21:31] LABS: BILIRUBIN,URINE NEGATIVE (NEGATIVE); CLARITY,URINE SL CLOUDY (CLEAR); COLOR,URINE YELLOW (YELLOW); KETONES,URINE NEGATIVE (NEGATIVE); LEUKOCYTE ESTERASE ,URINE TRACE (NEGATIVE); NITRITE,URINE POSITIVE (NEGATIVE); PROTEIN,URINE DIPSTICK TRACE (NEGATIVE); URINE UROBILINOGEN 0.2 mg/dL (0.2 - 1)
[2019-08-14 21:52] LABS: BACTERIA,URINE MODERATE /HPF; EPITHELIAL CELLS,URINE MODERATE /LPF; RBC,URINE 0-5 /HPF (0-5)
--- NOTE | 2019-08-14 23:00 | NUR ---
Received report from ER nurse.
--- OUTSIDE RECORDS SUMMARY | 2019-08-14 23:26 | XMS REPORT | Summary of Care ---
Author Author Lynn John M.A. Unknown Address Unknown Phone Unavailable Care Team Providers Care Clerk Operator Name Role Phone TAWANNA HERNANDEZ APRN Unavailable Unavailable OLIVER López, AYUSH Unavailable Unavailable DANNY López, BALAJI Unavailable Unavailable DARYL López, DELFINA Unavailable Unavailable OLIVER MONTANEZ UT, AYUSH Marr Unavailable Unavailable DAVID MONTANEZ, GERA Andrade Unavailable Unavailable DARYL MONTANEZ, SOLAFA Unavailable Unavailable ANTHONY MONTANEZ, CHELSY Unavailable Unavailable Cecilia MONTANEZ, Rodrigo Unavailable Unavailable Danny MONTANEZ, Balaji Unavailable Unavailable LINDA OTTO-C, CLAY Unavailable Unavailable DAVID SCOTT-C, TAWANNA Aparicio Unavailable Unavailable GIA MONTANEZ [place], OTTO Pond Unavailable Unavailable AMERICA MONTANEZ, MOUSTAFA [...] Active Sore throat (462, J02.9) Status: Active Increased urinary frequency (788.41, R35.0) [...] Active Chest pain (786.50, R07.9) Status: Active Acute streptococcal pharyngitis (034.0, J02.0) Status: Active Gastroenteritis, acute (558.9, K52.9) Status: Active Pharyngitis due to Streptococcus pyogenes (034.0, J02.0) Status: Active Medications Name Dates Details Furosemide 20 MG Oral Tablet TAKE 1 TABLET BY MOUTH EVERY DAY NEEDED Quantity: 90 OLIVER López, AYUSH * Start : 23-Oct-2015 Active Eliquis 2.5 [...] López SOLAFJimena * Start : 11-Dec-2018 Active Vitamin D3 [...] W/RFL E.COLI O157 CULT Date: 11-Jul-2019 [QLH] CBC (INCLUDES DIFF/PLT) Date: 14-Aug-2019 [QLH] CMP W/EGFR Date: 14-Aug-2019 [Q] AMYLASE AND LIPASE Date: 14-Aug-2019 History of Back Surgery Completed History of Knee Surgery Completed History of Pacemaker Permanent Placement Completed History of Corneal LASIK Right Completed Immunization Name Dates Details Fluzone INJ Lot #: [id number] on: 04-Apr-2013 Fluzone INJ Lot #: [id number] on: 08-Feb-2014 Prevnar 13 Intramuscular Suspension Lot #: [id number] on: 22-Nov-2014 Fluzone Quadrivalent 0.5 ML Intramuscular Suspension Lot #: [id number] on: 26-Apr-2016 Pneumococcal polysaccharide vaccine, 23 valent Lot #: [id number] on: 23-Dec-2016 Fluzone Quadrivalent 0.5 ML Intramuscular Suspension Prefilled Syringe Lot #: [id number] on: 23-Mar-2018 Influenza on: 06-Mar-2019 Tdap on: [...] (finding) Vital Signs Date Test Result Details :41 Systolic blood pressure 100 mm[Hg] Status: Comments: Location: LUE; Position: Sitting Diastolic blood pressure 71 mm[Hg] Status: Comments: Location: LUE; Position: Sitting :26 Systolic blood pressure 101 mm[Hg] Status: Comments: Location: LUE; Position: Supine Diastolic blood pressure 71 mm[Hg] Status: Comments: Location: LUE; Position: Supine :41 Systolic blood pressure 122 mm[Hg] Status: Diastolic blood pressure 74 mm[Hg] Status: O2 SAT 97 % Status: Comments: Source: RA Heart Rate 73 /min Status: Body height 62 in Status: Weight 211 lb Status: Body mass index (BMI) [Ratio] 38.59 kg/m2 Status: Body surface area Derived from formula 1.96 m2 Status: Body temperature 98 f Status: Comments: Method: Temporal Respiratory rate 16 /min Status: :59 Systolic blood pressure 135 mm[Hg] Status: Comments: Location: LUE; Position: Sitting Diastolic blood pressure 86 mm[Hg] Status: Comments: Location: LUE; Position: Sitting Heart Rate 106 /min Status: Body height 62 in Status: Weight 219 lb Status: Body mass index (BMI) [Ratio] 40.06 kg/m2 Status: Body surface area Derived from formula 1.99 m2 Status: :06 Systolic blood pressure 127 mm[Hg] Status: Comments: Location: LUE; Position: Sitting Diastolic blood pressure 87 mm[Hg] Status: Comments: Location: LUE; Position: Sitting Heart Rate 92 /min Status: Body height 62 in Status: Weight 220 lb Status: Body mass index (BMI) [Ratio] 40.24 kg/m2 Status: Body surface area Derived from formula 1.99 m2 Status: Body temperature 97.4 f Status: Comments: Method: Temporal Respiratory rate 16 /min Status: :22 Systolic blood pressure 153 mm[Hg] Status: Comments: Location: LUE; Position: Sitting Diastolic blood pressure 88 mm[Hg] Status: Comments: Location: LUE; Position: Sitting O2 SAT 98 % Status: Heart Rate 127 /min Status: Body height 62 in Status: Weight 230.375 lb Status: Body mass index (BMI) [Ratio] 42.14 kg/m2 Status: Body surface area Derived from formula 2.03 m2 Status: Body temperature 98.9 f Status: Comments: Method: Temporal Respiratory rate 20 /min Status: Results Date Description Value Details :16 [QL] CMP W/EGFR GLUCOSE 146 mg/dl (Above high threshold) Range: 65-139 Comments: Non-fasting reference interval UREA NITROGEN (BUN) 30 mg/dl (Above high threshold) Range: 7-25 CREATININE 1.14 mg/dl (Above high threshold) Range: 0.60-0.93 Comments: For patients >49 years of age, the reference limitfor Creatinine is approximately 13% higher for peopleidentified as -Citizen Of [place]. eGFR NON- 46 {ML/MIN/1.7} (Below low threshold) [...] clinically indicated. For additional information, please refer tohttp://education.Bell [employer]/faq/VVC854(This link is being provided for informational/educational purposes [...] filaments, fibers and/ormicrotubules. This category includes anti-actin, vtot-nom-khjfef myosin, anti-cytokeratin, anti-vimentin,anti-tropomyosin, anti- actinin, and anti-vinculin.Pattern may be found in mixed connective tissuedisease (MCTD), chronic active hepatitis, cirrhosis,myasthenia gravis, Crohn's disease, primary biliarycholangitis (PBC), long-term hemodialysis, infectiousor inflammatory conditions, psoriasis, ulcerativecolitis, system autoimmune rheumatic diseases (SARD)and in healthy persons. AC-15,16,17: Fibrillar International Consensus on ASHLEIGH Patterns(https://do i.org/10.1515/qdux-4425-4952) ASHLEIGH TITER 1:80 {titer} (Above high threshold) [...] kenny AC-2,4,5,29: Speckled International Consensus on ASHLEIGH Patterns(https://doi.org/10.1515/kkmx-5309-0847) :16 [QLH] C-REACTIVE PROTEIN C-REACTIVE PROTEIN 19.0 [...] age.Reference: J. Am. Justin. Cardiol. 2002; 40:976-982. 18-Zaw-[id number]:00 [QLH] TROPONIN I TROPONIN I 0.02 ng/ml (Normal) Range: < OR=0.05 Comments: In accord with published recommendations, serialtesting of troponin I at intervals of 2 to 4 hoursfor up to 12 to 24 hours is suggested in order tocorroborate a single troponin I result. An elevatedtroponin alone is not sufficient to make thediagnosis of [place]. For additional information, please refer to http://education.InvisibleCRM/faq/DEE145 (This link is being provided for informational/educational purposes only.) 42-Pxu-397210:00 [Q] TEST IN QUESTION- MISC QUESTION Comments: REPORT COMMENT:FASTING:YES QUESTION/PROBLEM: Comments: THERE IS A QUESTION REGARDING THE FOLLOWING SPECIMENSUBMITTED AND/OR THE TEST REQUESTED. QUESTION: VERIFY TEST [id number] . Comments: To prevent further delays in testing, please completeinformation above and fax to [phone] to resolvethis order. 50-Jtp-[id number]:18 [O] Streptococcus Test Rapid (In Office) Group A Strep Screen POSITIVE (Abnormal) [id number]-Den-[id number]:19 [O] Influenza A and B, Rapid Method (In Office) INFLUENZA A & B Rapid NEGATIVE (Normal) Plan of Care Name Dates Details Planned Observations Planned Goals not documented Planned Encounters Appointment; CHELSY CRUZ M.D. On: 03-Sep-2019 14:30 Appointment; BALAJI DELGADO M.D. On: 12-Sep-2019 14:00 Appointment; AYUSH BOYD M.D. On: 10-Oct-2019 10:00 Interventions Provided Labs/Procedures/Imaging* [Q] AMYLASE AND LIPASE; To Be Done: 14 Aug 2019 * [QLH] CBC (INCLUDES DIFF/PLT); To Be Done: 14 Aug 2019 * [QLH] CMP W/EGFR; To Be Done: 14 Aug 2019 * [O] Influenza A and B, Rapid Method (In Office); Done: 14 Aug 2019 * [O] Streptococcus Test Rapid (In Office); Done: 14 Aug 2019 * EKG (In Office); Done: 14 Aug 2019 Instructions Name Dates Details Instructions not [...] Problem not documented On: 03-Apr-2018 13:00 [facility] En[facility] Diagnosis: Problem not documented On: 03-May-2018 11:00 Appointment; [facility] E[facility] Encounter Diagnosis: Problem not documented [...] Problem not documented On: 09-Nov-2018 15:00 Appointment; BLAAJI DELGADO M.D. Encounter Diagnosis: Problem not documented [...] Problem not documented On: 08-Aug-2019 14:00 Appointment; TAWANNA HERNANDEZ APRN Encounter Diagnosis: Problem not documented On: 14-Aug-2019 14:00
--- NOTE | 2019-08-14 23:31 | NUR ---
Patient arrived to the floor via stretcher.
[2019-08-15] VITALS (9 sets, daily range): BP systolic 117–149; BP diastolic 52–90
--- NOTE | 2019-08-15 02:00 | NUR ---
Admit completed. Patient resting quitly at this time.
[2019-08-15 06:33] LABS: BASOPHILS % 0.2 % (0.0-1.0); EOSINOPHILS # (AUTO) 0.1 (0.0-0.4); HEMATOCRIT 35.6 % (34.2-44.1); HEMOGLOBIN 11.4 g/dL (12.0-16.0); LYMPHOCYTES # (AUTO) 2.7 (1.0-3.2); LYMPHOCYTES % 21.5 % (18.0-39.1); MEAN CORPUSCULAR HEMOGLOBIN 29.8 pg (28-32); MONOCYTES % 7.9 % (4.4-11.3); NEUTROPHILS # (AUTO) 8.8 (2.1-6.9); NEUTROPHILS % 68.9 % (38.7-80.0); PLATELET COUNT 336 x10e3/uL (140-360); RED BLOOD COUNT 3.83 x10e6/uL (3.6-5.1); RED CELL DISTRIBUTION WIDTH 13.6 % (11.7-14.4)
--- NOTE | 2019-08-15 07:00 | NUR ---
BEDSIDE SHIFT REPORT RECEIVED FROM THE GLOBAL REGULATORY LEAD RN. EDUCATED PT ABOUT FALL PRECAUTIONS. PT VERBALIZED UNDERSTANDING. CALL LIGHT WITH IN EASY REACH. INSTRUCTED PT TO USE CALL LIGHT FOR ALL THE NEEDS. BED IS LOW AND LOCKED. SIDE RAILS X2. PT DENIES NEEDS AT THIS TIME.
--- NOTE | 2019-08-15 07:05 | NUR ---
RAC 20 G IV REMOVED DUE TO LEAKING. TIP INTACT. DRESSING APPLIED. NEW IV 22 G LFA STARTED. PT DENIED FURTHER NEEDS.
[2019-08-15 07:07] LABS: ANION GAP 10.6 mmol/L (8-16); CALCIUM 8.7 mg/dL (8.4-10.2); CREATININE, SERUM 1.25 mg/dL (0.57-1.11); POTASSIUM 3.6 mmol/L (3.5-5.1)
--- NOTE | 2019-08-15 07:46 | Diagnostic Imaging Report ---
EXAMINATION: CHEST SINGLE (PORTABLE) INDICATION: SOB. COMPARISON: Chest radiograph 08/14/2019. FINDINGS: TUBES and LINES: Left-sided pacemaker with leads overlying the right atrium and right ventricle. LUNGS: Lungs are well inflated. Decreased mild patchy bibasilar opacities. No new consolidation. No evidence of pulmonary edema. Central vascular congestion. PLEURA: No pleural effusion or pneumothorax. HEART AND MEDIASTINUM: The cardiomediastinal silhouette is mildly enlarged. BONES AND SOFT TISSUES: No acute osseous lesion. Soft tissues are unremarkable. UPPER ABDOMEN: No free air under the diaphragm. IMPRESSION: Decreased patchy bibasilar opacities, likely atelectasis, although infection is possible in the appropriate clinical setting. Central vascular congestion without evidence of pulmonary edema. Signed by: Dr. Monse Varner MD on 08/15/2019 7:44 AM
[2019-08-15 08:35] LABS: CREATINE KINASE 27 IU/L (29-168)
[2019-08-15] MEDS ORDERED: ACETAMINOPHEN 325 MG TAB PO PRN (09:15)
--- NOTE | 2019-08-15 09:55 | NUR ---
PT OFF UNIT FOR CT OF THE CHEST IN SAFE CONDITION.
[2019-08-15] MEDS: APIXABAN 5 MG TABLET PO SCH ×2 (10:20→17:22)
[2019-08-15] MEDS: AMIODARONE HCL 200 MG TAB PO SCH ×2 (10:20→17:22)
--- NOTE | 2019-08-15 10:20 | NUR ---
PT BACK TO UNIT. DENIES NEEDS AT THIS TIME.,
--- NOTE | 2019-08-15 10:36 | NUR ---
Nutrition Screen Note RD Recommendation for Physician: -Consider 1800 ADA, 2 gm Na diet per MD. - Consider Imodium if pt continues to have diarrhea and is medically feasible. Plan of Care: RD following, monitoring for tolerance and adequacy Nutrition reason for involvement: (MST) Primary Diagnose(s): Afib, PNA, CRI PMH: Hypertension Diabetes Asthma A-Fib CAD Ht: 62 in Wt: 215 lb BMI: 39.3 kg/m2 IBW:[address] Assessment: (08/14) 79 YOF admitted for afib with PMH listed above. The pt was seen resting in bed, finished breakfast tray at bedside. Pt appears well nourished. The pt reported she loss about 8 lbs within the last week d/t her diarrhea. She denied N/V/chewing or swallowing issues (besides a sore throat) and denied any food allergies. She did report a good appetite despite the diarrhea. Pt is on lasix and zofran as well as abx. Pt was 215 lbs in Apr 2019, suggesting the pt has not had any recent weight loss per EMR. Consider Imodium if pt continues to have diarrhea and is medically feasible, LBM: not recorded. Chart reviewed. Labs and meds reviewed. Will continue to monitor. Current Diet: renal diet Malnutrition Evaluation (08/14) The patient does not meet criteria for a specified degree of malnutrition at this time. Will re-evaluate at follow-up as appropriate. Diet Education Needs Assessment: Diet education not indicated. Diet Adequacy: Meeting calorie needs, Meeting protein needs Nutrition Care Level: low Signed: Prerna Hare, RD, LD
--- NOTE | 2019-08-15 10:43 | Diagnostic Imaging Report ---
EXAM: CT Chest WITHOUT contrast INDICATION: Shortness of breath COMPARISON: None TECHNIQUE: Chest was scanned utilizing a multidetector helical scanner from the lung apex through the level of the adrenal glands without administration of IV contrast. Absence of intravenous contrast decreases sensitivity for detection of lymphadenopathy and vascular pathology. Coronal and sagittal reformations were obtained. Routine protocol was performed. IV CONTRAST: None COMPLICATIONS: None RADIATION DOSE: Total DLP: 553 mGy*cm Estimated effective dose: (DLP x 0.014 x size factor) mSv CTDIvol has been reviewed. It is below the limits set by the Radiation Protocol Committee (RPC). Dose modulation, iterative reconstruction, and/or weight based adjustment of the mA/kV was utilized to reduce the radiation dose to as low as reasonably achievable. FINDINGS: LINES/ TUBES: Left mechanical cardiac device. LUNGS AND AIRWAYS: No concerning pulmonary mass, nodule, or consolidation. Mild bilateral lower lobe linear scarring. Subtle nonspecific 3 mm right lower lobe groundglass nodule (image 55). Small left lower lobe calcified granuloma. The airways are clear. PLEURA: The pleural spaces are clear. HEART AND MEDIASTINUM: The heart is at the upper limit of normal in size. No pericardial effusion. Advanced coronary artery calcifications. No gross adenopathy. Subtle nonspecific thyroid hypodensity. UPPER ABDOMEN: Scattered vascular calcifications. Partially visualized small exophytic left renal lesion, likely a small hyperdense cyst. BONES: No acute osseous abnormality. SOFT TISSUES: Unremarkable. IMPRESSION: No acute thoracic abnormality. Signed by: Yobany [place] MD on 08/15/2019 10:40 AM
--- NOTE | 2019-08-15 11:57 | Consultation ---
DATE OF CONSULTATION: 08/15/2019 Cardiology Consult HISTORY OF PRESENT ILLNESS: The patient Lea Miles is a 79-year-old female with primary history of hypertension, diabetes, atrial fibrillation, on Eliquis and CHF with ICD placed in 2015, asthma, admitted complaining of dizziness associated with palpitations and shortness of breath that worsens with activities that started 24 hours prior to admission. The patient also reports that at her PCP office, she was found to have elevated heart rate and low blood pressure. The patient denies any chest pains, nausea, or vomiting. The patient also reports that she was recently discharged from the hospital three weeks ago and was treated for fluid overload in her lungs and her heart. PAST MEDICAL HISTORY: Hypertension, diabetes, atrial fibrillation, CHF, asthma, bronchitis, abdominal hernia, gout arthritis. PAST SURGICAL HISTORY: She had bilateral knee surgery, back surgery. SOCIAL HISTORY: Nonsmoker. The patient does not use alcohol or illicit drugs. HOME MEDICATIONS: She takes amlodipine 5 mg daily, furosemide 20 mg daily, losartan 50 mg daily, metoprolol succinate 25 mg b.i.d., Eliquis 2.5 mg daily. PHYSICAL EXAMINATION: VITAL SIGNS: 96.8 temperature, heart rate of 80, respiratory rate of 18, blood pressure latest one 117/84, 97% on 2 L nasal cannula. GENERAL APPEARANCE: She is a well-developed, well-nourished, in no acute distress. HEENT: Head is normocephalic, atraumatic. Eyes, pupils equally round, reactive to light and accommodation. Sclerae are nonicteric. Ears are normal. Oral cavity, mucosa is moist. Throat is clear. NECK/THYROID: Neck is supple. Full range of motion. No cervical lymphadenopathy. No JVD. SKIN: Warm and dry. No suspicious lesion. CARDIOVASCULAR: Irregular rate and rhythm. No murmurs heard on auscultation. LUNGS: Clear to auscultation bilaterally. ABDOMEN: Obese, soft, nontender, nondistended. Bowel sounds are present and normal. EXTREMITIES: No edema. No clubbing or cyanosis. NEUROLOGIC: Nonfocal. Motor strength is normal, upper and lower extremities. Sensory exam is intact. IMPRESSION AND PLAN: The patient is a 79-year-old female with an atrial fibrillation with RVR recently hospitalized for acute on chronic congestive heart failure exacerbation. 1. Monitor on telemetry. 2. We will do repeat echocardiogram. 3. Start on AV maite agents, anti arrhythmic amiodarone. 4. Interrogate defibrillator or pacemaker and then further recommendation will follow according to the patient's clinical course. Thank you for this consultation. Dictated by Hailee Hay, ELECT[employer]SEMBLER MD AUG[place]A Curiel/HUGO /[id number]
--- NOTE | 2019-08-15 12:00 | NUR ---
PAGED DR. VEGA AND INFORMED PT BLOOD SUGAR 147. WAITING FOR THE RESPONSE FROM THE
[2019-08-15] MEDS: BUDESONIDE/FORMOTEROL 160/4.5MCG INHALER INH SCH ×2 (12:21→20:15)
--- NOTE | 2019-08-15 14:30 | NUR ---
PAGED DR. VEGA AND INFORMED MICROBIOLOGY RESULT GRAM POSITIVE COCCI IN CLUSTERS PRELIMINARY BLOOD RESULT.
[2019-08-15 14:41] LABS: CREATINE KINASE MB 0.9 ng/mL (0-5.0)
--- NOTE | 2019-08-15 15:47 | NUR ---
PAGED DR. VEGA AND REPORTED PT BLOOD SUGAR 189. NO NEW ORDERS RECEIVED.,
[2019-08-15] MEDS: CEFTRIAXONE SOD 1 GM/NS 50 ML 50 ML IV SCH (18:07)
--- NOTE | 2019-08-15 18:55 | NUR ---
BEDSIDE SHIFT REPORT GIVEN TO THE INSPECTOR METAL FABRICATING RN. PT DENIED FURTHER NEEDS.
[2019-08-15] MEDS: AZITHROMYCIN 500MG/NS 250 ML 250 ML IV SCH (20:13)
[2019-08-15] MEDS: MONTELUKAST SODIUM 10 MG TAB PO SCH (20:13)
[2019-08-16] VITALS (7 sets, daily range): BP systolic 124–158; BP diastolic 60–89
[2019-08-16] MEDS: BUDESONIDE/FORMOTEROL 160/4.5MCG INHALER INH SCH ×2 (07:42→19:52)
[2019-08-16] MEDS: LOSARTAN POTASSIUM 100 MG TAB PO SCH (08:57)
[2019-08-16] MEDS: AMIODARONE HCL 200 MG TAB PO SCH ×2 (08:57→17:20)
[2019-08-16] MEDS: TOLTERODINE TARTRATE 4 MG CAPCR PO SCH (08:58)
[2019-08-16] MEDS: APIXABAN 5 MG TABLET PO SCH ×2 (08:58→17:20)
[2019-08-16] MEDS: FUROSEMIDE 20 MG TAB PO SCH (08:58)
[2019-08-16] MEDS: METOPROLOL SUCCINATE 25 MG TAB XL PO SCH (08:59)
--- NOTE | 2019-08-16 11:00 | NUR ---
PAGED [facility] [phone] LUKE PER PT REQUEST AND PER NIYA LUIS RAC SPECIALIST FOR PACEMAKER INTERROGATION. WAITING FOR THE RESPONSE FROM [facility].
--- NOTE | 2019-08-16 12:35 | NUR ---
RECEIVED CALL FROM DR. DELGADO FROM [facility] AND INFORMED DR. KRISTYN CASTILLO CARDIAC ELECTRO PHYSIOLOGY WOULD LIKE TO SEE THE PT AT [facility]. PAGED DR. VEGA AND DR. Alessandra HUERTA AND INFORMED THE SAME.
[2019-08-16] MEDS ORDERED: ONDANSETRON HCL 4 MG ORAL DISINTEGRATING TAB PO PRN (16:45)
--- NOTE | 2019-08-16 17:33 | Consultation ---
DATE OF CONSULTATION: 08/16/2019 Initial EP Consultation REASON FOR CONSULTATION: Atrial fibrillation with rapid ventricular rate. HISTORY OF PRESENT ILLNESS: Ms. Miles is a 79-year-old woman with a history of paroxysmal atrial fibrillation with elevated CHADS-Vasc score on anticoagulation as well as sick sinus syndrome with a dual-chamber pacemaker implanted ([employer]), who presents to the hospital with palpitations and CHF exacerbation due to atrial fibrillation with rapid ventricular rate. The patient notes that, although she currently is optimized. She has had multiple admissions for rapid heart rate. She would normally feel short of breath as well as palpitations. She currently feels well. REVIEW OF SYSTEMS: She denies having any fevers, chills, lightheadedness, dizziness, discharge from the eyes, nose, mouth, swollen lymph nodes in the neck or groin, chest pain, palpitations, shortness of breath, coughing, abdominal pain, nausea, vomiting, dysuria, hematuria, joint pains, swelling in the joints, numbness, tingling, weakness, skin rashes, ulcers, swelling in the legs or arms, depression, or anxiety. PAST MEDICAL HISTORY: As noted above. The patient does have hypertension. PAST SURGICAL HISTORY: Pacemaker implantation. No other cardiac surgeries. SOCIAL HISTORY: The patient denies smoking cigarettes, drinking alcohol, or using illicit drugs. FAMILY HISTORY: No significant family history of early cardiac or sudden arrhythmias. MEDICATIONS: Please see MAR. ALLERGIES: DRUG ALLERGIES ARE CODEINE AND MORPHINE. PHYSICAL EXAMINATION: VITAL SIGNS: Temperature is 96, heart rate is currently in the 90s to 100s, atrial fibrillation. Blood pressure 135/89. GENERAL: No acute distress. Alert, awake, and oriented x3. HEENT: Normocephalic, atraumatic. Pupils are equal and reactive to light. LYMPH NODES: No supraclavicular or submandibular lymphadenopathy appreciated. CVS: S1, S2. Regular rate and rhythm. RESPIRATORY: Coarse breath sounds. No wheezing. GI: Abdomen is soft, nontender. : No bladder fullness. No CVA tenderness. MUSCULOSKELETAL: No effusions or erythema noted in the knees or elbows bilaterally. NEURO: No focal deficits. Moves all extremities bilaterally. EXTREMITIES: No edema in lower extremities or upper extremities bilaterally. SKIN: No bruising or rashes noted. PSYCH: Mood is normal. Answers questions appropriately. LABORATORY DATA: WBC is 12.7, hemoglobin 7.4, and platelets are 336. ASSESSMENT AND PLAN: Ms. Miles is a 79-year-old woman with history of atrial fibrillation as well as sick sinus syndrome with [employer] dual-chamber pacemaker implanted, who presents to hospital with shortness of breath, noted to have atrial fibrillation with rapid ventricular rate. The patient is also being treated for possible bronchitis or pneumonia. EP was consulted due to the patient's episode of atrial fibrillation with rapid ventricular rate. Her pacemaker was interrogated, which demonstrated high rates that are due to atrial fibrillation. She currently is on metoprolol 25 mg p.o. daily as well as amiodarone 200 mg p.o. b.i.d. We can consider increasing the patient's p.o. metoprolol to 50 mg p.o. daily and also have the patient on 5 mg IV Lopressor q.4 hours p.r.n. for heart rate greater than 110. I suspect that once the patient has her infectious issue resolved, her heart rate may be easier to control. Once the patient is stabilized and discharged from the hospital, she should follow up with Dr. Delcid in clinic, who she normally sees for further discussions about what to do of atrial fibrillation and other treatment options, given her repeated hospitalizations for atrial fibrillation with rapid ventricular rate. This plan has been discussed with the patient, who is agreeable. Thank you very much for this consultation. Please feel free to call if you have any questions. DO JADEN LEDEZMA/HUGO /[id number]
--- NOTE | 2019-08-16 18:55 | NUR ---
BEDSIDE SHIFT REPORT GIVEN TO THE EXECUTIVE [employer]ITY [employer]ING RN. PT DENIED FURTHER NEEDS.
--- NOTE | 2019-08-16 19:42 | NUR ---
Patient complain of itching when rocephine was given yesterday. Patient also complain of cough. Spoke with Dr. Turner new orders received.
[2019-08-16] MEDS ORDERED: BENZONATATE 100 MG CAP PO PRN (19:45)
[2019-08-16] MEDS: MONTELUKAST SODIUM 10 MG TAB PO SCH (19:57)
[2019-08-16] MEDS ORDERED: AZITHROMYCIN 250 MG TAB PO SCH (20:00)
[2019-08-17] VITALS: BP 104/79
--- NOTE | 2019-08-17 07:04 | NUR ---
BEDSIDE REPORT RECEIVED FROM [facility] NURSE. PT AWAKE, ALERT, SITTING UP IN BED. NO SIGNS OF DISTRESS. WILL CONTINUE TO MONITOR.
[2019-08-17 07:34] VITALS: BP 104/79
[2019-08-17] MEDS: BUDESONIDE/FORMOTEROL 160/4.5MCG INHALER INH SCH (07:45)
[2019-08-17 08:00] VITALS: BP 141/64
--- NOTE | 2019-08-17 08:39 | NUR ---
DR ANTHONY HUERTA CAME TO PT'S BEDSIDE. INFORMED DR OF PT'S C/O CP AND ELEVATED HR IN 130'S. DR HUERTA STATES HE WILL CONTACT PT'X MACHINE MOVER WHO PLACED PACEMAKER TO SEE IF HE CAN EVALUATE PT SOONER.
[2019-08-17 10:16] VITALS: BP 135/60
--- NOTE | 2019-08-17 10:18 | NUR ---
SPOKE WITH DR CASTILLO WHO STATES HE WILL ACCEPT PT IN TRANSFER TO [place] AND WILL DO ABLATION TOMORROW.
[2019-08-17] MEDS: PIPERACILLIN/TAZO 2.25 GM 50 ML IV SCH ×2 (11:24→15:52)
[2019-08-17] MEDS: AMIODARONE HCL 200 MG TAB PO SCH ×2 (11:27→15:52)
[2019-08-17] MEDS: LOSARTAN POTASSIUM 100 MG TAB PO SCH (11:27)
[2019-08-17] MEDS: APIXABAN 5 MG TABLET PO SCH ×2 (11:28→15:52)
[2019-08-17] MEDS: FUROSEMIDE 20 MG TAB PO SCH (11:28)
[2019-08-17] MEDS: TOLTERODINE TARTRATE 4 MG CAPCR PO SCH (11:28)
[2019-08-17] MEDS: METOPROLOL SUCCINATE 25 MG TAB XL PO SCH (11:28)
[2019-08-17 11:38] VITALS: BP 143/69
--- NOTE | 2019-08-17 12:42 | NUR ---
WOUND CARE CONSULT FOLLOW UP FOR BREAST FOLD IRRITATION PATIENT STATES CURRENT INTERVENTIONS HAVE INCREASED HER COMFORT AND AREA IS LESS RED AND IRRITATED Addendum: 08/17/19 at 1244 by Omid Hicks RN Amended: Links added.
--- NOTE | 2019-08-17 15:27 | NUR ---
spoke with Nury RN from [facility] who states pt was accepted in transfer by [facility] at 1107; requesting Facesheet and MOT to be faxed to [phone]. Pt's accepting doctor is Dr. El Olivo who accepted at 1510. Pt is going to [address], [address] in room 5505.
[2019-08-17 15:32] VITALS: BP 104/53
--- NOTE | 2019-08-17 16:14 | NUR ---
gave report to ISI Ahn at [facility] who will be receiving pt in transfer.
[2019-08-24] MEDS ORDERED: FUROSEMIDE40 MG PO (20:21)
[2019-08-24] MEDS ORDERED: ELIQUIS5 MG PO (20:21)
[2019-08-24] MEDS ORDERED: METOPROLOL TART50 MG PO (20:21)
[2019-08-24] MEDS ORDERED: BUDESONIDE0.25 MG/2 INH (20:21)
[2019-08-24] MEDS ORDERED: TROSPIUM CHLORI20 MG PO (20:21)
== END 2019-08-17 17:20 | disposition short-term general hospital (02) | DRG 308 ==
LOC: ER 15:36 → ERHOLD 23:14 → MED/SURG3 23:35
PROVIDERS: ADMIT Internal Medicine; ATTEND Internal Medicine
DX: I48.0 Paroxysmal atrial fibrillation (principal); J15.9 Unspecified bacterial pneumonia; I50.22 Chronic systolic (congestive) heart failure; I13.0 Hypertensive heart and chronic kidney disease with heart failure and stage 1 through stage 4 chronic kidney disease, or unspecified chronic kidney disease; Z88.5 Allergy status to narcotic agent; Z79.01 Long term (current) use of anticoagulants; Z95.810 Presence of automatic (implantable) cardiac defibrillator; J45.909 Unspecified asthma, uncomplicated; Z96.653 Presence of artificial knee joint, bilateral; Z96.643 Presence of artificial hip joint, bilateral; Z82.49 Family history of ischemic heart disease and other diseases of the circulatory system; N18.9 Chronic kidney disease, unspecified; J20.9 Acute bronchitis, unspecified
CPT/HCPCS: 36415; 70450; 71045; 71250; 80048; 80053; 81001; 82550; 82553; 82948; 83518; 83735; 83880; 84443; 84484; 85025; 85610; 85730; 87040; 87070; 87071; 87086; 87186; 87205; 87400; 93005; 93306; 94664; 99284; J0456; J0696; J2405; J2543; J7030

== ENCOUNTER 2020-10-13 11:41 | Emergency (ER) | payer OTHER ==
[~2020-10-13] VITALS: Ht 154.9 cm; Wt 100.7 kg
[~2020-10-13 11:41] MED LIST changes: +BUDESONIDE0.25 MG/2 INH; +ELIQUIS5 MG PO; +FUROSEMIDE40 MG PO; +METOPROLOL TART50 MG PO; +TROSPIUM CHLORI20 MG PO
[2020-10-13] MEDS ORDERED: LIDOCAINE 4% PATCH TP ONE (12:15)
[2020-10-13] MEDS ORDERED: LIDOCAINE 4% PATCH TP SCH (13:00)
== END 2020-10-13 12:30 | disposition home or self-care (01) ==
LOC: ER 12:01
DX: M54.42 Lumbago with sciatica, left side (principal); I10 Essential (primary) hypertension; E11.9 Type 2 diabetes mellitus without complications; I50.9 Heart failure, unspecified; N18.9 Chronic kidney disease, unspecified; I25.10 Atherosclerotic heart disease of native coronary artery without angina pectoris; F41.9 Anxiety disorder, unspecified; Z96.643 Presence of artificial hip joint, bilateral; Z96.653 Presence of artificial knee joint, bilateral; Z95.810 Presence of automatic (implantable) cardiac defibrillator
CPT/HCPCS: 99282

== ENCOUNTER 2020-10-18 20:59 | Emergency (ER) | payer MEDICARE, OTHER ==
[~2020-10-18] VITALS: Ht 154.9 cm; Wt 100.7 kg
[2020-10-18] MEDS ORDERED: HYDROCODONE/APAP 7.5MG-325MG 1 EA TAB PO PRN (22:15)
[2020-10-18] MEDS ORDERED: TRAMADOL HCL 50 MG TAB PO ONE (23:45)
[2020-10-18] MEDS ORDERED: TRAMADOL HCL 50 MG TAB ONE (23:55)
[2020-10-19 00:22] VITALS: BP 145/64
[2020-10-19] MEDS ORDERED: CYCLOBENZAPRINE5 MG PO (00:22)
== END 2020-10-19 00:30 | disposition home or self-care (01) ==
LOC: ER 22:09
DX: S06.0X0A Concussion without loss of consciousness, initial encounter (principal); S30.0XXA Contusion of lower back and pelvis, initial encounter; W18.30XA Fall on same level, unspecified, initial encounter; I10 Essential (primary) hypertension; E11.9 Type 2 diabetes mellitus without complications; I25.10 Atherosclerotic heart disease of native coronary artery without angina pectoris; I48.91 Unspecified atrial fibrillation; F41.9 Anxiety disorder, unspecified; N18.9 Chronic kidney disease, unspecified; E66.9 Obesity, unspecified; Z96.643 Presence of artificial hip joint, bilateral; Z96.653 Presence of artificial knee joint, bilateral
CPT/HCPCS: 70450; 72125; 72192; 99283

== ENCOUNTER 2021-02-18 08:00 | Inpatient (IN) | payer MEDICARE ==
[~2021-02-18] VITALS: Ht 154.9 cm; Wt 96.3 kg
[~2021-02-18 08:00] MED LIST changes: +CYCLOBENZAPRINE5 MG PO
[2021-02-18 09:09] LABS: BASOPHILS # (AUTO) 0.1 (0.0-0.1); BASOPHILS % 0.3 % (0.0-1.0); EOSINOPHILS % 0.1 % (0.0-6.0); HEMATOCRIT 39.4 % (34.2-44.1); HEMOGLOBIN 12.7 g/dL (12.0-16.0); LYMPHOCYTES # (AUTO) 1.4 (1.0-3.2); LYMPHOCYTES % 8.7 % (18.0-39.1); MEAN CORPUSCULAR HEMOGLOBIN 31.4 pg (28-32); MEAN CORPUSCULAR HGB CONC 32.2 g/dL (31-35); MEAN CORPUSCULAR VOLUME 97.3 fL (81-99); MONOCYTES % 6.4 % (4.4-11.3); NEUTROPHILS # (AUTO) 13.1 (2.1-6.9); NEUTROPHILS % 83.9 % (38.7-80.0); PLATELET COUNT 372 x10e3/uL (140-360); RED BLOOD COUNT 4.05 x10e6/uL (3.6-5.1); RED CELL DISTRIBUTION WIDTH 13.6 % (11.7-14.4)
[2021-02-18 09:29] LABS: ALBUMIN 3.3 g/dL (3.5-5.0); ALBUMIN/GLOBULIN RATIO 0.9 (0.8-2.0); ANION GAP 16.6 mmol/L (8-16); CALCIUM 8.9 mg/dL (8.4-10.2); CREATININE, SERUM 0.96 mg/dL (0.57-1.11); POTASSIUM 3.6 mmol/L (3.5-5.1)
[2021-02-18] MEDS ORDERED: FUROSEMIDE INJ 10 MG/ML 4 ML VIAL IV ONE (10:00)
[2021-02-18] MEDS ORDERED: CEFTRIAXONE 500 MG VIAL IV ONE (10:00)
[2021-02-18] MEDS ORDERED: CEFTRIAXONE 1 GM in SODIUM CHLORIDE 0.9% 50ML 50 ML IV ONE (10:15)
[2021-02-18 15:34] VITALS: BP 153/68
[2021-02-18] MEDS ORDERED: ZYLOPRIM100 MG PO (15:49)
[2021-02-18] MEDS ORDERED: AMLODIPINE BESY10 MG PO (15:49)
[2021-02-18] MEDS ORDERED: METFORMIN HCL500 MG PO (16:32)
[2021-02-18 20:16] VITALS: BP 140/59
[2021-02-18 21:00] VITALS: BP 140/59
[2021-02-19] VITALS (8 sets, daily range): BP systolic 150–184; BP diastolic 46–64
[2021-02-19] MEDS ORDERED: DEXTROSE 50% SYRINGE 50 ML IV PRN (10:15)
[2021-02-19] MEDS ORDERED: ALBUTEROL/IPRATROPIUM 3 ML NEB NEB PRN (10:15)
[2021-02-19] MEDS ORDERED: ACETAMINOPHEN 325 MG TAB PO PRN (10:15)
[2021-02-19] MEDS: METOPROLOL TARTRATE 50 MG TAB PO SCH ×2 (10:51→23:00)
[2021-02-19] MEDS: AZITHROMYCIN 250 MG TAB PO SCH (11:20)
[2021-02-19] MEDS: INSULIN LISPRO 100 UNIT/1 ML 3ML VIAL SQ SCH ×3 (11:30→19:58)
[2021-02-19] MEDS: FUROSEMIDE INJ 10 MG/ML 4 ML VIAL IV SCH (11:52)
[2021-02-19] MEDS ORDERED: AZITHROMYCIN 250 MG TAB PO SCH (12:00)
[2021-02-19] MEDS: CEFTRIAXONE 1 GM in SODIUM CHLORIDE 0.9% 50ML 50 ML IV SCH (12:46)
[2021-02-19] MEDS: CYCLOBENZAPRINE HCL 10 MG TAB PO SCH ×2 (14:35→19:59)
[2021-02-19] MEDS: APIXABAN 5 MG TABLET PO SCH (16:52)
[2021-02-19] MEDS: NON-FORMULARY MEDICATION (Trospium Chloride 20 MG) PO SCH (17:00)
[2021-02-19] MEDS: BUDESONIDE 0.25 MG/2 ML NEB INH SCH (19:26)
[2021-02-19] MEDS: MONTELUKAST SODIUM 10 MG TAB PO SCH (19:59)
[2021-02-20] VITALS (8 sets, daily range): BP systolic 122–172; BP diastolic 51–75
[2021-02-20 05:09] LABS: BASOPHILS % 0.3 % (0.0-1.0); EOSINOPHILS # (AUTO) 0.2 (0.0-0.4); EOSINOPHILS % 1.8 % (0.0-6.0); HEMATOCRIT 36.3 % (34.2-44.1); HEMOGLOBIN 11.8 g/dL (12.0-16.0); LYMPHOCYTES # (AUTO) 2.3 (1.0-3.2); LYMPHOCYTES % 24.9 % (18.0-39.1); MEAN CORPUSCULAR HEMOGLOBIN 31.1 pg (28-32); MEAN CORPUSCULAR HGB CONC 32.5 g/dL (31-35); MEAN CORPUSCULAR VOLUME 95.8 fL (81-99); MONOCYTES # (AUTO) 0.8 (0.2-0.8); MONOCYTES % 9.1 % (4.4-11.3); NEUTROPHILS # (AUTO) 5.9 (2.1-6.9); NEUTROPHILS % 63.5 % (38.7-80.0); PLATELET COUNT 310 x10e3/uL (140-360); RED BLOOD COUNT 3.79 x10e6/uL (3.6-5.1); RED CELL DISTRIBUTION WIDTH 13.2 % (11.7-14.4)
[2021-02-20 05:37] LABS: ANION GAP 14.1 mmol/L (8-16); CALCIUM 8.3 mg/dL (8.4-10.2); CREATININE, SERUM 0.84 mg/dL (0.57-1.11); POTASSIUM 3.1 mmol/L (3.5-5.1)
[2021-02-20] MEDS: BUDESONIDE 0.25 MG/2 ML NEB INH SCH ×2 (07:10→19:25)
[2021-02-20] MEDS: INSULIN LISPRO 100 UNIT/1 ML 3ML VIAL SQ SCH ×4 (07:30→21:00)
[2021-02-20] MEDS: NON-FORMULARY MEDICATION (Trospium Chloride 20 MG) PO SCH ×2 (09:00→16:32)
[2021-02-20] MEDS: APIXABAN 5 MG TABLET PO SCH ×2 (09:39→16:58)
[2021-02-20] MEDS: CYCLOBENZAPRINE HCL 10 MG TAB PO SCH ×3 (09:39→22:38)
[2021-02-20] MEDS: FUROSEMIDE INJ 10 MG/ML 4 ML VIAL IV SCH ×2 (09:39→11:43)
[2021-02-20] MEDS: AMLODIPINE BESYLATE 10 MG TAB PO SCH (09:39)
[2021-02-20] MEDS: ALLOPURINOL 100 MG TAB PO SCH (09:40)
[2021-02-20] MEDS ORDERED: POTASSIUM CHLORIDE 10MEQ EA PO ONE (10:30)
[2021-02-20] MEDS: CEFTRIAXONE 1 GM in SODIUM CHLORIDE 0.9% 50ML 50 ML IV SCH (11:18)
[2021-02-20] MEDS: AZITHROMYCIN 250 MG TAB PO SCH (11:19)
[2021-02-20] MEDS: METOPROLOL TARTRATE 50 MG TAB PO SCH ×2 (11:19→22:39)
[2021-02-20] MEDS: MONTELUKAST SODIUM 10 MG TAB PO SCH (22:39)
[2021-02-21] VITALS (9 sets, daily range): BP systolic 116–143; BP diastolic 67–90
[2021-02-21 06:33] LABS: BASOPHILS # (AUTO) 0.1 (0.0-0.1); BASOPHILS % 0.5 % (0.0-1.0); EOSINOPHILS # (AUTO) 0.2 (0.0-0.4); EOSINOPHILS % 1.9 % (0.0-6.0); HEMATOCRIT 35.5 % (34.2-44.1); HEMOGLOBIN 11.7 g/dL (12.0-16.0); LYMPHOCYTES # (AUTO) 2.7 (1.0-3.2); LYMPHOCYTES % 27.5 % (18.0-39.1); MEAN CORPUSCULAR HEMOGLOBIN 31.3 pg (28-32); MEAN CORPUSCULAR VOLUME 94.9 fL (81-99); MONOCYTES # (AUTO) 0.9 (0.2-0.8); MONOCYTES % 9.2 % (4.4-11.3); NEUTROPHILS # (AUTO) 5.8 (2.1-6.9); NEUTROPHILS % 60.6 % (38.7-80.0); PLATELET COUNT 349 x10e3/uL (140-360); RED BLOOD COUNT 3.74 x10e6/uL (3.6-5.1); RED CELL DISTRIBUTION WIDTH 13.3 % (11.7-14.4)
[2021-02-21 06:50] LABS: ANION GAP 14.1 mmol/L (8-16); CALCIUM 8.6 mg/dL (8.4-10.2); CREATININE, SERUM 0.87 mg/dL (0.57-1.11); POTASSIUM 3.1 mmol/L (3.5-5.1)
[2021-02-21] MEDS: BUDESONIDE 0.25 MG/2 ML NEB INH SCH ×2 (07:10→19:35)
[2021-02-21] MEDS: INSULIN LISPRO 100 UNIT/1 ML 3ML VIAL SQ SCH ×5 (07:30→21:00)
[2021-02-21] MEDS: FUROSEMIDE INJ 10 MG/ML 4 ML VIAL IV SCH ×2 (08:27→14:12)
[2021-02-21] MEDS: ALLOPURINOL 100 MG TAB PO SCH (08:28)
[2021-02-21] MEDS: POTASSIUM CHLORIDE 10MEQ EA PO SCH (08:28)
[2021-02-21] MEDS: APIXABAN 5 MG TABLET PO SCH ×2 (08:28→17:15)
[2021-02-21] MEDS: CYCLOBENZAPRINE HCL 10 MG TAB PO SCH ×3 (08:28→20:01)
[2021-02-21] MEDS: AMLODIPINE BESYLATE 10 MG TAB PO SCH (08:28)
[2021-02-21] MEDS: NON-FORMULARY MEDICATION (Trospium Chloride 20 MG) PO SCH ×2 (08:31→17:00)
[2021-02-21] MEDS: AZITHROMYCIN 250 MG TAB PO SCH (11:14)
[2021-02-21] MEDS: METOPROLOL TARTRATE 50 MG TAB PO SCH ×2 (11:14→23:00)
[2021-02-21] MEDS: CEFTRIAXONE 1 GM in SODIUM CHLORIDE 0.9% 50ML 50 ML IV SCH (11:14)
[2021-02-21] MEDS: MONTELUKAST SODIUM 10 MG TAB PO SCH (20:01)
[2021-02-21] MEDS ORDERED: POTASSIUM CHLORIDE 10MEQ EA PO ONE (22:00)
[2021-02-22] VITALS: BP 134/56
[2021-02-22 04:55] VITALS: BP 133/45
[2021-02-22 07:15] LABS: ANION GAP 14.9 mmol/L (8-16); CALCIUM 8.6 mg/dL (8.4-10.2); CREATININE, SERUM 0.82 mg/dL (0.57-1.11); POTASSIUM 3.9 mmol/L (3.5-5.1)
[2021-02-22] MEDS: BUDESONIDE 0.25 MG/2 ML NEB INH SCH (07:15)
[2021-02-22] MEDS: INSULIN LISPRO 100 UNIT/1 ML 3ML VIAL SQ SCH ×2 (07:30→11:30)
[2021-02-22] MEDS: POTASSIUM CHLORIDE 10MEQ EA PO SCH (08:31)
[2021-02-22] MEDS: APIXABAN 5 MG TABLET PO SCH (08:31)
[2021-02-22] MEDS: NON-FORMULARY MEDICATION (Trospium Chloride 20 MG) PO SCH (08:31)
[2021-02-22] MEDS: CYCLOBENZAPRINE HCL 10 MG TAB PO SCH (08:31)
[2021-02-22] MEDS: ALLOPURINOL 100 MG TAB PO SCH (08:32)
[2021-02-22] MEDS: AMLODIPINE BESYLATE 10 MG TAB PO SCH (08:32)
[2021-02-22 08:35] VITALS: BP 154/47
[2021-02-22] MEDS ORDERED: FUROSEMIDE 40 MG TAB PO SCH (09:00)
[2021-02-22 10:05] VITALS: BP 149/43
[2021-02-22 10:06] VITALS: BP 154/47
[2021-02-22] MEDS: METOPROLOL TARTRATE 50 MG TAB PO SCH (11:32)
[2021-02-22] MEDS: CEFTRIAXONE 1 GM in SODIUM CHLORIDE 0.9% 50ML 50 ML IV SCH (11:32)
[2021-02-22 12:00] VITALS: BP 159/73
== END 2021-02-22 13:18 | disposition home or self-care (01) | DRG 291 ==
LOC: ER 08:15 → ERHOLD 10:52 → MED/SURG2 15:00
PROVIDERS: ADMIT Internal Medicine; ATTEND Internal Medicine
DX: I11.0 Hypertensive heart disease with heart failure (principal); J18.9 Pneumonia, unspecified organism; Z68.41 Body mass index [BMI] 40.0-44.9, adult; E11.9 Type 2 diabetes mellitus without complications; I48.91 Unspecified atrial fibrillation; Z95.810 Presence of automatic (implantable) cardiac defibrillator; Z88.6 Allergy status to analgesic agent; Z88.5 Allergy status to narcotic agent; E66.01 Morbid (severe) obesity due to excess calories; I25.10 Atherosclerotic heart disease of native coronary artery without angina pectoris; E78.5 Hyperlipidemia, unspecified; M10.9 Gout, unspecified; I50.33 Acute on chronic diastolic (congestive) heart failure; Z79.84 Long term (current) use of oral hypoglycemic drugs; Z20.822 Contact with and (suspected) exposure to COVID-19
CPT/HCPCS: 36415; 51700; 71045; 71250; 80048; 80053; 82948; 83036; 83605; 83880; 84443; 84484; 85025; 87040; 93005; 93306; 94640; 99251; 99284; J0456; J0696; J1940; J7050; U0002

== ENCOUNTER 2021-03-26 10:41 | Emergency (ER) | payer MEDICARE ==
[~2021-03-26] VITALS: Ht 154.9 cm; Wt 96.2 kg
[~2021-03-26 10:41] MED LIST changes: +AMLODIPINE BESY10 MG PO; +METFORMIN HCL500 MG PO; +ZYLOPRIM100 MG PO
[2021-03-26 12:02] LABS: STREPTOCOCCUS GRP A ANTIGEN NEGATIVE (NEGATIVE)
[2021-03-26 12:28] LABS: INFLUENZAE A&B ANTIGEN (RAPID) NEGATIVE (NEGATIVE)
[2021-03-26 13:06] VITALS: BP 167/70
[2021-03-26] MEDS ORDERED: PREDNISONE50 MG PO (13:06)
[2021-03-26] MEDS ORDERED: IBUPROFEN400 MG PO (13:06)
== END 2021-03-26 13:10 | disposition home or self-care (01) ==
LOC: ER 10:57
DX: J06.9 Acute upper respiratory infection, unspecified (principal); R05.9 Cough, unspecified; I10 Essential (primary) hypertension; E11.9 Type 2 diabetes mellitus without complications; I50.9 Heart failure, unspecified; I48.91 Unspecified atrial fibrillation; I25.10 Atherosclerotic heart disease of native coronary artery without angina pectoris; F41.9 Anxiety disorder, unspecified; Z95.810 Presence of automatic (implantable) cardiac defibrillator; Z20.822 Contact with and (suspected) exposure to COVID-19; Z96.643 Presence of artificial hip joint, bilateral; Z96.653 Presence of artificial knee joint, bilateral
CPT/HCPCS: 71045; 83518; 87070; 87400; 99283; U0002

== ENCOUNTER 2021-06-01 10:01 | Emergency (ER) | payer MEDICARE ==
[~2021-06-01] VITALS: Ht 157.5 cm; Wt 96.6 kg
[~2021-06-01 10:01] MED LIST changes: +IBUPROFEN400 MG PO; +PREDNISONE50 MG PO
[2021-06-01 10:40] LABS: BASOPHILS % 0.3 % (0.0-1.0); EOSINOPHILS % 0.1 % (0.0-6.0); HEMATOCRIT 39.3 % (34.2-44.1); HEMOGLOBIN 12.4 g/dL (12.0-16.0); LYMPHOCYTES # (AUTO) 0.7 (1.0-3.2); LYMPHOCYTES % 5.2 % (18.0-39.1); MEAN CORPUSCULAR HEMOGLOBIN 30.9 pg (28-32); MEAN CORPUSCULAR HGB CONC 31.6 g/dL (31-35); MONOCYTES # (AUTO) 1.1 (0.2-0.8); MONOCYTES % 7.8 % (4.4-11.3); NEUTROPHILS # (AUTO) 11.9 (2.1-6.9); NEUTROPHILS % 86.2 % (38.7-80.0); PLATELET COUNT 316 x10e3/uL (140-360); RED BLOOD COUNT 4.01 x10e6/uL (3.6-5.1); RED CELL DISTRIBUTION WIDTH 14.4 % (11.7-14.4)
[2021-06-01 11:01] LABS: ALBUMIN 3.5 g/dL (3.5-5.0); ALBUMIN/GLOBULIN RATIO 1.2 (0.8-2.0); CALCIUM 8.7 mg/dL (8.4-10.2); CREATININE, SERUM 1.11 mg/dL (0.57-1.11)
[2021-06-01] MEDS ORDERED: FUROSEMIDE INJ 10 MG/ML 4 ML VIAL IV ONE (11:15)
[2021-06-01 11:55] VITALS: BP 152/74
== END 2021-06-01 12:32 | disposition home or self-care (01) ==
LOC: ER 10:08
DX: U07.1 COVID-19 (principal); I13.0 Hypertensive heart and chronic kidney disease with heart failure and stage 1 through stage 4 chronic kidney disease, or unspecified chronic kidney disease; I50.9 Heart failure, unspecified; N18.9 Chronic kidney disease, unspecified; E11.22 Type 2 diabetes mellitus with diabetic chronic kidney disease; Z95.810 Presence of automatic (implantable) cardiac defibrillator; I25.10 Atherosclerotic heart disease of native coronary artery without angina pectoris; I48.91 Unspecified atrial fibrillation; Z88.6 Allergy status to analgesic agent; Z88.5 Allergy status to narcotic agent; E66.9 Obesity, unspecified
CPT/HCPCS: 36415; 71045; 80053; 83880; 84484; 85025; 93005; 99284; J1940; U0002

== ENCOUNTER 2021-06-09 19:42 | Inpatient (IN) | payer MEDICARE, OTHER ==
[~2021-06-09] VITALS: Ht 157.5 cm; Wt 96.6 kg
[2021-06-09 20:36] LABS: BASOPHILS % 0.1 % (0.0-1.0); HEMATOCRIT 41.6 % (34.2-44.1); HEMOGLOBIN 13.4 g/dL (12.0-16.0); LYMPHOCYTES # (AUTO) 1.3 (1.0-3.2); LYMPHOCYTES % 18.1 % (18.0-39.1); MEAN CORPUSCULAR HEMOGLOBIN 30.8 pg (28-32); MEAN CORPUSCULAR HGB CONC 32.2 g/dL (31-35); MEAN CORPUSCULAR VOLUME 95.6 fL (81-99); MONOCYTES # (AUTO) 0.7 (0.2-0.8); MONOCYTES % 9.7 % (4.4-11.3); NEUTROPHILS # (AUTO) 5.3 (2.1-6.9); NEUTROPHILS % 71.8 % (38.7-80.0); PLATELET COUNT 388 x10e3/uL (140-360); RED BLOOD COUNT 4.35 x10e6/uL (3.6-5.1); RED CELL DISTRIBUTION WIDTH 13.6 % (11.7-14.4)
[2021-06-09 20:53] LABS: ALBUMIN 3.2 g/dL (3.5-5.0); ALBUMIN/GLOBULIN RATIO 0.9 (0.8-2.0); ANION GAP 17.1 mmol/L (8-16); CALCIUM 9.4 mg/dL (8.4-10.2); CREATININE, SERUM 1.25 mg/dL (0.57-1.11); POTASSIUM 4.1 mmol/L (3.5-5.1)
[2021-06-09 20:59] LABS: CREATINE KINASE MB 0.2 ng/mL (0-5.0)
[2021-06-09] MEDS ORDERED: IOPAMIDOL 370 MG/ML 200 ML INFUS..BTL INJ ONE (21:27)
[2021-06-09] MEDS ORDERED: SODIUM CHLORIDE 0.9% 50ML 50 ML ONE (21:27)
[2021-06-10] MEDS ORDERED: DEXTROSE 50% SYRINGE 50 ML IV PRN (05:00)
[2021-06-10 06:03] LABS: CREATINE KINASE MB 0.4 ng/mL (0-5.0)
[2021-06-10] MEDS: INSULIN REGULAR, HUMAN 100 UNIT/1 ML SQ SCH ×4 (07:30→22:02)
[2021-06-10 08:26] LABS: BASOPHILS % 0.2 % (0.0-1.0); HEMATOCRIT 40.7 % (34.2-44.1); HEMOGLOBIN 12.9 g/dL (12.0-16.0); LYMPHOCYTES # (AUTO) 1.9 (1.0-3.2); LYMPHOCYTES % 29.1 % (18.0-39.1); MEAN CORPUSCULAR HEMOGLOBIN 30.6 pg (28-32); MEAN CORPUSCULAR HGB CONC 31.7 g/dL (31-35); MEAN CORPUSCULAR VOLUME 96.4 fL (81-99); MONOCYTES # (AUTO) 0.8 (0.2-0.8); MONOCYTES % 11.7 % (4.4-11.3); NEUTROPHILS # (AUTO) 3.9 (2.1-6.9); NEUTROPHILS % 58.5 % (38.7-80.0); PLATELET COUNT 360 x10e3/uL (140-360); RED BLOOD COUNT 4.22 x10e6/uL (3.6-5.1); RED CELL DISTRIBUTION WIDTH 13.6 % (11.7-14.4)
[2021-06-10 08:49] LABS: ALBUMIN 2.8 g/dL (3.5-5.0); ALBUMIN/GLOBULIN RATIO 0.8 (0.8-2.0); ANION GAP 13.6 mmol/L (8-16); CALCIUM 8.7 mg/dL (8.4-10.2); CREATININE, SERUM 1.16 mg/dL (0.57-1.11); POTASSIUM 3.6 mmol/L (3.5-5.1)
[2021-06-10] MEDS: LOSARTAN POTASSIUM 25 MG TAB PO SCH (09:15)
[2021-06-10] MEDS ORDERED: ACETAMINOPHEN 325 MG TAB PO PRN (09:15)
[2021-06-10] MEDS: DEXAMETHASONE SOD PHOS 10 MG/1 ML VIAL IV SCH (09:44)
[2021-06-10] MEDS: METOPROLOL TARTRATE 50 MG TAB PO SCH ×2 (09:44→22:00)
[2021-06-10] MEDS: AMLODIPINE BESYLATE 10 MG TAB PO SCH (09:44)
[2021-06-10] MEDS: APIXABAN 5 MG TABLET PO SCH ×2 (09:44→16:53)
[2021-06-10] MEDS ORDERED: FUROSEMIDE INJ 10 MG/ML 4 ML VIAL IV ONE (10:00)
[2021-06-10] MEDS ORDERED: ALBUTEROL/IPRATROPIUM 3 ML NEB NEB PRN (10:00)
[2021-06-10] MEDS: IPRATROPIUM/ALBUTEROL SULFATE 4 GM INH INH SCH ×4 (10:47→23:55)
[2021-06-10] MEDS: PIPERACILLIN/TAZOBACTAM 3.375 GM in SODIUM CHLORIDE 0.9% 50ML 50 ML IV SCH ×3 (11:39→23:19)
[2021-06-10 11:58] LABS: CREATINE KINASE MB 0.4 ng/mL (0-5.0)
[2021-06-10] MEDS: ALBUTEROL/IPRATROPIUM 3 ML NEB NEB SCH ×2 (13:00→19:00)
[2021-06-10] MEDS ORDERED: REMDESIVIR 100MG 200 MG in SODIUM CHLORIDE 0.9% 100 ML IV ONE (13:30)
[2021-06-10 13:38] VITALS: BP 144/59
[2021-06-10 15:00] VITALS: BP 105/54
[2021-06-10] MEDS: CYCLOBENZAPRINE HCL 10 MG TAB PO SCH ×2 (15:11→21:57)
[2021-06-10] MEDS: Trospium Chloride 20 MG PO SCH (16:54)
[2021-06-10 17:54] VITALS: BP 130/57
[2021-06-10 18:32] VITALS: BP 130/57
[2021-06-10] MEDS: BUDESONIDE 0.25 MG/2 ML NEB INH SCH (19:00)
[2021-06-10 20:00] VITALS: BP 123/56
[2021-06-10 20:33] LABS: CREATINE KINASE MB 0.2 ng/mL (0-5.0)
[2021-06-10] MEDS: MONTELUKAST SODIUM 10 MG TAB PO SCH (21:57)
[2021-06-11] VITALS: BP 122/60
[2021-06-11] MEDS: IPRATROPIUM/ALBUTEROL SULFATE 4 GM INH INH SCH ×6 (03:00→22:35)
[2021-06-11 04:00] VITALS: BP 130/63
[2021-06-11] MEDS: PIPERACILLIN/TAZOBACTAM 3.375 GM in SODIUM CHLORIDE 0.9% 50ML 50 ML IV SCH (05:15)
[2021-06-11] MEDS ORDERED: PIPERACILLIN/TAZOBACTAM 3.375 GM VIAL ONE (05:19)
[2021-06-11 05:59] LABS: HEMATOCRIT 38.6 % (34.2-44.1); HEMOGLOBIN 12.4 g/dL (12.0-16.0); LYMPHOCYTES # (AUTO) 0.6 (1.0-3.2); MEAN CORPUSCULAR HEMOGLOBIN 30.9 pg (28-32); MEAN CORPUSCULAR HGB CONC 32.1 g/dL (31-35); MEAN CORPUSCULAR VOLUME 96.3 fL (81-99); MONOCYTES # (AUTO) 0.4 (0.2-0.8); MONOCYTES % 14.9 % (4.4-11.3); NEUTROPHILS # (AUTO) 1.5 (2.1-6.9); NEUTROPHILS % 61.3 % (38.7-80.0); PLATELET COUNT 331 x10e3/uL (140-360); RED BLOOD COUNT 4.01 x10e6/uL (3.6-5.1); RED CELL DISTRIBUTION WIDTH 13.1 % (11.7-14.4)
[2021-06-11 06:33] LABS: ALBUMIN 2.6 g/dL (3.5-5.0); ALBUMIN/GLOBULIN RATIO 0.7 (0.8-2.0); ANION GAP 13.6 mmol/L (8-16); CALCIUM 8.5 mg/dL (8.4-10.2); CREATININE, SERUM 1.11 mg/dL (0.57-1.11); POTASSIUM 3.6 mmol/L (3.5-5.1)
[2021-06-11] MEDS: BUDESONIDE 0.25 MG/2 ML NEB INH SCH ×2 (07:00→19:00)
[2021-06-11] MEDS: ALBUTEROL/IPRATROPIUM 3 ML NEB NEB SCH ×4 (07:00→19:00)
[2021-06-11] MEDS: INSULIN REGULAR, HUMAN 100 UNIT/1 ML SQ SCH ×4 (07:30→22:02)
[2021-06-11 08:06] VITALS: BP 136/67
[2021-06-11] MEDS: DEXAMETHASONE SOD PHOS 10 MG/1 ML VIAL IV SCH (08:31)
[2021-06-11] MEDS: FUROSEMIDE INJ 10 MG/ML 4 ML VIAL IV SCH (08:33)
[2021-06-11] MEDS: CYCLOBENZAPRINE HCL 10 MG TAB PO SCH ×3 (08:33→21:53)
[2021-06-11] MEDS: APIXABAN 5 MG TABLET PO SCH ×2 (08:33→16:10)
[2021-06-11] MEDS: LOSARTAN POTASSIUM 25 MG TAB PO SCH (08:33)
[2021-06-11] MEDS: AMLODIPINE BESYLATE 10 MG TAB PO SCH (08:33)
[2021-06-11] MEDS: ALLOPURINOL 100 MG TAB PO SCH (08:34)
[2021-06-11] MEDS: METOPROLOL TARTRATE 50 MG TAB PO SCH ×2 (08:34→21:53)
[2021-06-11] MEDS: Trospium Chloride 20 MG PO SCH ×2 (08:40→16:10)
[2021-06-11] MEDS ORDERED: REMDESIVIR 100MG 100 MG in SODIUM CHLORIDE 0.9% 100 ML IV SCH (14:00)
[2021-06-11 20:00] VITALS: BP 116/52
[2021-06-11 20:55] VITALS: BP 116/52
[2021-06-11] MEDS: MONTELUKAST SODIUM 10 MG TAB PO SCH (21:52)
[2021-06-12] VITALS (7 sets, daily range): BP systolic 111–145; BP diastolic 62–76
[2021-06-12] MEDS: IPRATROPIUM/ALBUTEROL SULFATE 4 GM INH INH SCH ×6 (00:45→19:50)
[2021-06-12] MEDS: ALBUTEROL/IPRATROPIUM 3 ML NEB NEB SCH ×4 (01:00→19:00)
[2021-06-12 05:09] LABS: HEMATOCRIT 37.5 % (34.2-44.1); LYMPHOCYTES # (AUTO) 0.5 (1.0-3.2); LYMPHOCYTES % 9.6 % (18.0-39.1); MEAN CORPUSCULAR HEMOGLOBIN 31.1 pg (28-32); MEAN CORPUSCULAR VOLUME 97.2 fL (81-99); MONOCYTES # (AUTO) 0.5 (0.2-0.8); NEUTROPHILS # (AUTO) 4.1 (2.1-6.9); NEUTROPHILS % 79.8 % (38.7-80.0); PLATELET COUNT 324 x10e3/uL (140-360); RED BLOOD COUNT 3.86 x10e6/uL (3.6-5.1); RED CELL DISTRIBUTION WIDTH 13.1 % (11.7-14.4)
[2021-06-12 05:44] LABS: ALBUMIN 2.5 g/dL (3.5-5.0); ALBUMIN/GLOBULIN RATIO 0.8 (0.8-2.0); ANION GAP 14.5 mmol/L (8-16); CALCIUM 8.6 mg/dL (8.4-10.2); CREATININE, SERUM 1.26 mg/dL (0.57-1.11); POTASSIUM 3.5 mmol/L (3.5-5.1)
[2021-06-12] MEDS: BUDESONIDE 0.25 MG/2 ML NEB INH SCH ×2 (07:00→19:00)
[2021-06-12] MEDS: Trospium Chloride 20 MG PO SCH ×2 (09:00→15:58)
[2021-06-12] MEDS: DEXAMETHASONE SOD PHOS 10 MG/1 ML VIAL IV SCH (09:19)
[2021-06-12] MEDS: FUROSEMIDE INJ 10 MG/ML 4 ML VIAL IV SCH (09:19)
[2021-06-12] MEDS: INSULIN REGULAR, HUMAN 100 UNIT/1 ML SQ SCH ×4 (09:19→21:01)
[2021-06-12] MEDS: METOPROLOL TARTRATE 50 MG TAB PO SCH ×2 (09:20→21:14)
[2021-06-12] MEDS: APIXABAN 5 MG TABLET PO SCH ×2 (09:20→15:58)
[2021-06-12] MEDS: ALLOPURINOL 100 MG TAB PO SCH (09:20)
[2021-06-12] MEDS: LOSARTAN POTASSIUM 25 MG TAB PO SCH (09:20)
[2021-06-12] MEDS: AMLODIPINE BESYLATE 10 MG TAB PO SCH (09:20)
[2021-06-12] MEDS: CYCLOBENZAPRINE HCL 10 MG TAB PO SCH ×3 (09:20→20:59)
[2021-06-12] MEDS: MONTELUKAST SODIUM 10 MG TAB PO SCH (20:59)
[2021-06-13] VITALS (8 sets, daily range): BP systolic 99–124; BP diastolic 51–79
[2021-06-13] MEDS: ALBUTEROL/IPRATROPIUM 3 ML NEB NEB SCH ×4 (00:52→19:00)
[2021-06-13] MEDS: IPRATROPIUM/ALBUTEROL SULFATE 4 GM INH INH SCH ×6 (04:10→23:45)
[2021-06-13] MEDS: BUDESONIDE 0.25 MG/2 ML NEB INH SCH ×2 (07:00→19:00)
[2021-06-13] MEDS: INSULIN REGULAR, HUMAN 100 UNIT/1 ML SQ SCH ×4 (07:30→21:47)
[2021-06-13] MEDS: Trospium Chloride 20 MG PO SCH ×2 (09:00→17:00)
[2021-06-13] MEDS: LOSARTAN POTASSIUM 25 MG TAB PO SCH (09:00)
[2021-06-13] MEDS: AMLODIPINE BESYLATE 10 MG TAB PO SCH (09:00)
[2021-06-13] MEDS: FUROSEMIDE INJ 10 MG/ML 4 ML VIAL IV SCH (09:21)
[2021-06-13] MEDS: DEXAMETHASONE SOD PHOS 10 MG/1 ML VIAL IV SCH (09:21)
[2021-06-13] MEDS: CYCLOBENZAPRINE HCL 10 MG TAB PO SCH ×3 (09:22→21:47)
[2021-06-13] MEDS: APIXABAN 5 MG TABLET PO SCH ×2 (09:22→17:31)
[2021-06-13] MEDS: METOPROLOL TARTRATE 50 MG TAB PO SCH ×2 (09:23→21:48)
[2021-06-13] MEDS: ALLOPURINOL 100 MG TAB PO SCH (09:23)
[2021-06-13] MEDS: NYSTATIN/TRIAMCINOLONE 15 GM CR TOP SCH (17:33)
[2021-06-13] MEDS: MONTELUKAST SODIUM 10 MG TAB PO SCH (21:47)
[2021-06-14] VITALS (8 sets, daily range): BP systolic 91–145; BP diastolic 55–72
[2021-06-14] MEDS: ALBUTEROL/IPRATROPIUM 3 ML NEB NEB SCH ×5 (01:00→22:51)
[2021-06-14] MEDS: IPRATROPIUM/ALBUTEROL SULFATE 4 GM INH INH SCH ×6 (02:45→22:50)
[2021-06-14] MEDS: BUDESONIDE 0.25 MG/2 ML NEB INH SCH ×2 (07:00→19:00)
[2021-06-14] MEDS: INSULIN REGULAR, HUMAN 100 UNIT/1 ML SQ SCH ×4 (07:30→21:17)
[2021-06-14] MEDS: FUROSEMIDE INJ 10 MG/ML 4 ML VIAL IV SCH (08:48)
[2021-06-14] MEDS: APIXABAN 5 MG TABLET PO SCH ×2 (08:48→16:45)
[2021-06-14] MEDS: LOSARTAN POTASSIUM 25 MG TAB PO SCH (08:48)
[2021-06-14] MEDS: DEXAMETHASONE SOD PHOS 10 MG/1 ML VIAL IV SCH (08:48)
[2021-06-14] MEDS: Trospium Chloride 20 MG PO SCH ×2 (08:48→14:41)
[2021-06-14] MEDS: CYCLOBENZAPRINE HCL 10 MG TAB PO SCH ×3 (08:48→21:13)
[2021-06-14] MEDS: NYSTATIN/TRIAMCINOLONE 15 GM CR TOP SCH ×2 (08:49→16:45)
[2021-06-14] MEDS: ALLOPURINOL 100 MG TAB PO SCH (08:49)
[2021-06-14] MEDS: AMLODIPINE BESYLATE 10 MG TAB PO SCH (08:49)
[2021-06-14] MEDS: METOPROLOL TARTRATE 50 MG TAB PO SCH ×2 (10:10→21:20)
[2021-06-14] MEDS: MONTELUKAST SODIUM 10 MG TAB PO SCH (21:13)
[2021-06-15] VITALS: BP 134/77
[2021-06-15] MEDS: IPRATROPIUM/ALBUTEROL SULFATE 4 GM INH INH SCH (02:16)
[2021-06-15 04:23] VITALS: BP 138/75
[2021-06-15 05:46] LABS: BASOPHILS % 0.3 % (0.0-1.0); HEMATOCRIT 38.2 % (34.2-44.1); HEMOGLOBIN 12.3 g/dL (12.0-16.0); LYMPHOCYTES # (AUTO) 0.6 (1.0-3.2); LYMPHOCYTES % 7.4 % (18.0-39.1); MEAN CORPUSCULAR HEMOGLOBIN 30.6 pg (28-32); MEAN CORPUSCULAR HGB CONC 32.2 g/dL (31-35); MONOCYTES # (AUTO) 0.4 (0.2-0.8); MONOCYTES % 5.2 % (4.4-11.3); NEUTROPHILS # (AUTO) 6.5 (2.1-6.9); NEUTROPHILS % 84.9 % (38.7-80.0); PLATELET COUNT 321 x10e3/uL (140-360); RED BLOOD COUNT 4.02 x10e6/uL (3.6-5.1); RED CELL DISTRIBUTION WIDTH 12.9 % (11.7-14.4)
[2021-06-15 06:26] LABS: ANION GAP 12.7 mmol/L (8-16); CALCIUM 8.4 mg/dL (8.4-10.2); CREATININE, SERUM 0.95 mg/dL (0.57-1.11); POTASSIUM 3.7 mmol/L (3.5-5.1)
[2021-06-15] MEDS: INSULIN REGULAR, HUMAN 100 UNIT/1 ML SQ SCH (07:30)
[2021-06-15] MEDS: APIXABAN 5 MG TABLET PO SCH (08:39)
[2021-06-15] MEDS: LOSARTAN POTASSIUM 25 MG TAB PO SCH (08:39)
[2021-06-15] MEDS: DEXAMETHASONE SOD PHOS 10 MG/1 ML VIAL IV SCH (08:39)
[2021-06-15] MEDS: FUROSEMIDE INJ 10 MG/ML 4 ML VIAL IV SCH (08:39)
[2021-06-15] MEDS: NYSTATIN/TRIAMCINOLONE 15 GM CR TOP SCH (08:40)
[2021-06-15] MEDS: AMLODIPINE BESYLATE 10 MG TAB PO SCH (08:40)
[2021-06-15] MEDS: CYCLOBENZAPRINE HCL 10 MG TAB PO SCH (08:40)
[2021-06-15] MEDS: ALLOPURINOL 100 MG TAB PO SCH (08:40)
[2021-06-15] MEDS: METOPROLOL TARTRATE 50 MG TAB PO SCH (08:41)
[2021-06-15] MEDS: Trospium Chloride 20 MG PO SCH (08:55)
[2021-06-15 09:29] VITALS: BP 133/75
[2021-06-16] MEDS ORDERED: FUROSEMIDE 40 MG TAB PO SCH (09:00)
== END 2021-06-15 10:40 | disposition home or self-care (01) | DRG 177 ==
LOC: ER 19:50 → ERHOLD 06-10 00:27 → OBSVTOIN 06-10 09:06 → IMCU 06-10 17:43
PROVIDERS: ADMIT Internal Medicine; ATTEND Internal Medicine
PROC: 8E0ZXY6 Isolation (ICD-10-PCS; principal; 2021-06-10)
PROC: XW033E5 Introduction of Remdesivir Anti-infective into Peripheral Vein, Percutaneous Approach, New Technology Group 5 (ICD-10-PCS; 2021-06-11)
DX: U07.1 COVID-19 (principal); J12.82 Pneumonia due to coronavirus disease 2019; J18.9 Pneumonia, unspecified organism; J44.0 Chronic obstructive pulmonary disease with (acute) lower respiratory infection; N39.0 Urinary tract infection, site not specified; I42.9 Cardiomyopathy, unspecified; I50.22 Chronic systolic (congestive) heart failure; Z95.810 Presence of automatic (implantable) cardiac defibrillator; R53.81 Other malaise; Z74.09 Other reduced mobility; E87.6 Hypokalemia; I11.0 Hypertensive heart disease with heart failure; I48.91 Unspecified atrial fibrillation; Z79.01 Long term (current) use of anticoagulants; I25.10 Atherosclerotic heart disease of native coronary artery without angina pectoris; M19.90 Unspecified osteoarthritis, unspecified site; J45.909 Unspecified asthma, uncomplicated; R06.89 Other abnormalities of breathing; R09.02 Hypoxemia
CPT/HCPCS: 36415; 71045; 71260; 80048; 80053; 82550; 82553; 82948; 83880; 84484; 85025; 93005; 94664; 94799; 96372; 99284; J0248; J0456; J1100; J1817; J1940; J2543; J7050; Q9967; U0002

== ENCOUNTER 2022-02-10 14:23 | Emergency (ER) | payer MEDICARE, OTHER ==
[~2022-02-10] VITALS: Ht 157.5 cm; Wt 96.6 kg
[2022-02-10] MEDS ORDERED: XARELTO10 MG PO (15:11)
[2022-02-10] MEDS ORDERED: BUDESONIDE0.5 MG/2 M NEB (15:13)
[2022-02-10] MEDS ORDERED: METOPROLOL SUCC25 MG PO (15:15)
[2022-02-10] MEDS ORDERED: LEVALBUTER0.63 MG/3 NEB (15:18)
[2022-02-10 15:24] LABS: BASOPHILS % 0.2 % (0.0-1.0); EOSINOPHILS % 0.1 % (0.0-6.0); HEMATOCRIT 34.7 % (34.2-44.1); HEMOGLOBIN 11.1 g/dL (12.0-16.0); LYMPHOCYTES # (AUTO) 1.2 (1.0-3.2); LYMPHOCYTES % 12.2 % (18.0-39.1); MEAN CORPUSCULAR HEMOGLOBIN 31.7 pg (28-32); MEAN CORPUSCULAR VOLUME 99.1 fL (81-99); MONOCYTES # (AUTO) 1.1 (0.2-0.8); MONOCYTES % 11.1 % (4.4-11.3); NEUTROPHILS # (AUTO) 7.4 (2.1-6.9); NEUTROPHILS % 75.9 % (38.7-80.0); PLATELET COUNT 392 x10e3/uL (140-360)
[2022-02-10 15:35] LABS: INR 2.55; PROTHROMBIN TIME 29.3 seconds (11.9-14.5)
[2022-02-10 15:43] LABS: ALANINE AMINOTRANSFERASE 12 IU/L (0-55); ALBUMIN 3.6 g/dL (3.5-5.0); ALBUMIN/GLOBULIN RATIO 1.1 (0.8-2.0); ALKALINE PHOSPHATASE 74 IU/L (40-150); ANION GAP 16.5 mmol/L (8-16); BLOOD UREA NITROGEN 22 mg/dL (7-26); BUN/CREATININE RATIO 18 (6-25); CALCIUM 8.9 mg/dL (8.4-10.2); CARBON DIOXIDE 24 mmol/L (22-29); CHLORIDE 107 mmol/L (98-107); CREATININE, SERUM 1.19 mg/dL (0.57-1.11); GLUCOSE 121 mg/dL (74-118); POTASSIUM 3.5 mmol/L (3.5-5.1); SODIUM 144 mmol/L (136-145)
[2022-02-10] MEDS ORDERED: FUROSEMIDE INJ 10 MG/ML 4 ML VIAL IV ONE (16:30)
[2022-02-10] MEDS ORDERED: LASIX40 MG PO (16:42)
[2022-02-10] MEDS ORDERED: PROAIR HFA INH8.5 GM PO (16:42)
[2022-02-10 17:43] VITALS: BP 174/51
[2022-02-10] MEDS ORDERED: ALBUTEROL SULF 0.083% NEB SOLN 3 ML NEB NEB SCH (19:00)
== END 2022-02-10 17:05 | disposition home or self-care (01) ==
LOC: ER 14:29
DX: R06.02 Shortness of breath (principal); U07.1 COVID-19; R05.9 Cough, unspecified; I50.9 Heart failure, unspecified; E11.65 Type 2 diabetes mellitus with hyperglycemia; I10 Essential (primary) hypertension; N28.9 Disorder of kidney and ureter, unspecified; E66.9 Obesity, unspecified
CPT/HCPCS: 0223U; 36415; 71045; 80053; 83880; 84484; 85025; 85610; 93005; 94640; 94799; 99284; J1940